=== PATIENT | male | born 1965 | race Caucasian/White ===

== ENCOUNTER 2019-05-03 10:45 | Inpatient (IN) | payer OTHER ==
[2019-05-03] MEDS ORDERED: Enoxaparin(*) 40 MG/0.4 ML SYR SUBCUT SCH (12:00)
[2019-05-03] MEDS: Ondansetron INJ* 2 MG/ML VIAL IV PRN ×3 (13:47→23:05)
[2019-05-03] MEDS: Lisinopril TAB* 10 MG PO SCH (13:52)
[2019-05-03] MEDS: amLODIPine TAB* 5 MG PO SCH (13:52)
[2019-05-03] MEDS: Cyclobenzaprine TAB* 10 MG PO PRN ×2 (14:10→21:20)
[2019-05-03] MEDS: Morphine INJ* 2 MG/ML 1 ML SYRINGE (TWO MG - NEW SYRINGE VERSION) IV PRN ×4 (14:11→21:18)
[2019-05-03] MEDS: NS 0.9% 1000 ML** 1,000 ML IV SCH (14:12)
--- NOTE | 2019-05-03 14:40 | HP ---
CC: Dr. Greyson Pompa; Dr. Giles Velasquez * ADMISSION HISTORY AND PHYSICAL: DATE OF ADMISSION: 05/03/19 REASON FOR ADMISSION: Severe back pain with numbness, headaches, with a history of stage IIIB melanoma. HISTORY OF PRESENT ILLNESS: Mr. Temple is a 54-year-old male with a history of malignant melanoma approximately 8 years ago (for details please see below). He reports being in his usual state of health other than maybe some vague symptoms of not feeling well for the last 6 months with some mild nausea over that period of time. Approximately 8 days ago, he developed some constipation, did not move his bowels for 4 days and then was able to move his bowels with MiraLAX. He had never required any prior bowel medications. Since using the MiraLAX, he again has not had a bowel movement for the last 3 days. 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 Because of this, he did try to increase his activity level recently. He was working out more with machines and exercise. With this, he subsequently developed significant low back pain radiating to the groin, extending into the buttocks, more on the left side than on the right. This pain has become much more severe over the past 3 to 4 days. He was taking ibuprofen 600 to 800 mg 4 times per day without significant relief, was unable to find a comfortable position. Two days ago, he developed inability to urinate and presented to the [facility] yesterday with the above complaints. He reports that 3 to 4 days ago the pain was about 4 or 5 on a scale of 1 to 10 and over the last 48 hours, it escalated to 10/10. He did receive some relief yesterday with the use of IV morphine at [facility]. He was sent home with Flexeril and oxycodone. Reports really no significant benefit from these medications since and also has become more jittery on these medications. He is now noticing numbness in the left and to a less extent right buttock and upper legs, which has been progressive. In addition, he has developed a sensation of lightning bolts in his vision, sensation of pounding in his head along with significant headaches with some radiation of the headaches to the neck. He denies any double or blurred vision with this. In the [facility] yesterday, a CT scan was performed which had subsequently been reviewed here by myself and by Radiology at [facility]. This reveals multiple enlarged lymph nodes in the abdomen and pelvis. In addition, there is a large mass in or adjacent to the right kidney measuring 7.5 cm. The typical fat plane between the kidney and the small bowel is obliterated. In addition, there are multiple enlarged lymph nodes noted both in the abdomen and in the pelvis with the largest being in the left pelvic region. This appears to be adjacent to the femoral vein and may well be compressing that vein. MRI scan without contrast was done of the lumbar spine and by report shows no fracture, subluxation, or bone marrow edema. There was significant L5-S1 central disk protrusion. There was significant neural foraminal narrowing. On review here, there appears to be some nodularity in the epidural space potentially concerning for metastatic disease in the lumbar spine. Laboratory studies at [facility] included a CBC with a white count of 11, 700, H and H 42.1/14.6, platelet count 331,000 with normal differential. Chemistry studies: Sodium 140, potassium 4.4, chloride 104, bicarb 25, BUN 19, creatinine 1.4. Albumin of 4.0. LFTs are normal. Urinalysis without any blood in the urine and no significant abnormalities. PAST MEDICAL HISTORY: Melanoma with lesion discovered in the left thigh, initial biopsy and then wide local excision and lymph node dissection done by Dr. Cynthia Toro at [facility]. His reports one lymph node involved with a small number of cells. Right leg at the same time also had a melanoma, which was not as deep and no lymph node surgery was performed. He was offered interferon, but declined to take it at that time. Reports PET scan was negative at that time. History of hypertension for approximately 2 years, well controlled on medications; increased cholesterol. No diabetes, RI, or CVA. No other hospitalizations. FAMILY HISTORY: Father at the age 46 of a ruptured aortic aneurysm. Mother is alive at 84 with diabetes and COPD. One brother with diabetes. Two other siblings in good health. No family history of any malignancies. 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 Lives with his , Maryjo Temple. Occasional alcohol. He was a smoker of cigarettes for 25 years and cigars up to 6 per day for the past 10 years, quitting 6 months ago. REVIEW OF SYSTEMS: Energy level has been poor over the past week, was good before that. Weight has been stable. No significant shortness of breath, chest pain, or palpitations. Does have some numbness, somewhat chronic in the bilateral upper thighs, although this numbness has been worse over the past week especially in the left leg. Underlying heartburn. Known abdominal wall hernia. Bowels, severe constipation recently as discussed above and no bloody stools. Urinary symptoms recently with difficult urination for the last 24 to 48 hours. Chronic left leg swelling since lymph node surgery in the groin. Increased back pain recently. Some difficulty with sleep over the past week. No underlying depression, anxiety, or emotional issues. No major bruising or bleeding problems. Review of systems otherwise negative except as discussed in the accompanied health history form. PHYSICAL EXAMINATION GENERAL: A 54-year-old male who appears very uncomfortable and unable to find a comfortable position, pacing throughout the exam room during our conversation. VITAL SIGNS: Blood pressure 149/86, pulse 93, afebrile, O2 saturation 96% on room air. Height 6 feet 1 inch, weight 283 pounds, BSA 2.49, and BMI of 37.3. HEENT: PERRL. EOMI. No erythema or exudates. No palpable cervical, supraclavicular, axillary, or inguinal adenopathy. LUNGS: Clear. HEART: Regular rate and rhythm without murmurs, rubs, or gallops. ABDOMEN: Midline abdominal wall hernia, which is easily reducible. BACK: Mild tenderness over the lower lumbar spine, especially about L2-3. EXTREMITIES: 1+ pitting edema on the left, none on the right. NEUROLOGIC: The patient is alert and oriented x3. Motor is 5/5 in all extremities. Decreased sensation in patchy areas in the bilateral upper thighs. He reports at least on the left that this is his usual. Reflexes are symmetric and not brisk. There is no clonus. Romberg is negative. Toes are downgoing on the right and questionably up on the left. IMPRESSION: A 54-year-old male with a history of stage IIIB melanoma by report (we are trying to obtain records from [facility] from 7 to 8 years ago). He reports at that time having had lymph node involvement and being offered but declining interferon therapy. He now has CT scan that is extremely worrisome for metastatic malignancy. Most likely related to his underlying melanoma. This includes multiple areas of increased lymph nodes throughout the abdomen and pelvis as well as a large mass in or adjacent to the right kidney. He presents now with markedly worsening symptoms over the past 1 week's time including back pain, groin and pelvic pain, some numbness radiating around the lower back into the legs. This is not associated with any weakness, although he does report his balance has been off, he has not fallen. In addition, he has neurologic symptoms of headaches and flashing lights in his eyes. The patient's pain is currently not under good control, and he will need to be admitted to the hospital for control of his pain as well as workup in an expeditious fashion to determine if he has central nervous system involvement. PLAN: 1. Morphine 2 mg IV q.2 hours p.r.n. This will be increased if needed. 2. MRI scan of the brain along with a CT of the LS spine. This has already been discussed with both Radiology and Neuroradiology and likely can be accomplished later today. If evidence for involvement in the [employer], Radiation Therapy will need to be involved to further help with planning. 3. Ultrasound-guided biopsy of lymph node in the left pelvis. This would be to determine if this is a melanoma as a cause of his symptoms and with CT and MRI findings. In addition, it will be determined BRAF status. He and his were unsure whether his tumor was BRAF positive or not at the time of the original diagnosis. 4. DVT prophylaxis with Lovenox 40 mg subcutaneously daily. 5. Continuation of routine medications for blood pressure and cholesterol. 6. Bowel medications as he has been constipated and has not had a bowel movement for 3 days. He has responded in the past to MiraLAX and this will be continued. 7. We will need to watch carefully to make sure he does not develop any further urinary retention. We will obtain bladder scan again this evening if he has not voided in the interim. He reports while being in the emergency room at [place] yesterday that he did urinate on his own 600 mL. 8. Full code status. [id number]/[facility] #: [id number] [facility]
[2019-05-03] MEDS ORDERED: Gadoteridol* (CONTRAST) 279.3 MG/ML 10 ML IV ONE (16:50)
[2019-05-03] MEDS: Polyethylene Glycol 3350* 17 GM PACKET PO SCH (19:12)
[2019-05-03] MEDS: Zolpidem TAB* 5 MG PO SCH (20:45)
[2019-05-03] MEDS: Atorvastatin* 40 MG TAB PO SCH (20:45)
[2019-05-03] MEDS ORDERED: Morphine INJ* 2 MG/ML 1 ML SYRINGE (TWO MG - NEW SYRINGE VERSION) IV ONE (23:00)
[2019-05-03] MEDS ORDERED: Dexamethasone IV* 4 MG/ML 1 ML (4 MG) IV SLOW PU ONE (23:00)
[2019-05-04] MEDS: Morphine INJ* 4 MG/ML 1 ML SYRINGE (NEW SYRINGE VERSION) IV PRN ×8 (01:13→21:35)
[2019-05-04] MEDS: Ondansetron INJ* 2 MG/ML VIAL IV PRN ×2 (04:07→19:12)
[2019-05-04 06:35] LABS: ABS Lymphocytes 0.9 10^3/ul (1.0-4.8); ABS Monocytes 0.1 10^3/ul (0-0.8); ABS Neutrophils 7.1 10^3/ul (1.5-7.7); Hematocrit 47 % (42-52); Hemoglobin 16.4 g/dL (14.0-18.0); Lymphocyte % 11.2 %; Mean Corpuscular HGB Conc 35 g/dL (31-36); Mean Corpuscular Hemoglobin 35 pg (27-31); Mean Corpuscular Volume 99 fL (80-94); Platelet Count 333 10^3/uL (150-450); Red Blood Count 4.71 10^6 /uL (4.18-5.48); Red Cell Distribution Width 13 % (10-15); White Blood Count 8.1 10^3/uL (3.5-10.8)
[2019-05-04 06:36] LABS: Albumin 4.9 g/dL (3.2-5.2); Albumin/Globulin Ratio 1.4 (1-3); BUN/Creatinine Ratio 16.4 (8-20); Calcium 9.8 mg/dL (8.6-10.3); EGFR African American 74.3 (>60); EGFR Non-African American 61.4 (>60); Globulin 3.5 g/dL (2-4); Potassium 4.4 mmol/L (3.5-5.0); Total Bilirubin 0.6 mg/dL (0.2-1.0); Total Protein 8.4 g/dL (6.4-8.9)
[2019-05-04] MEDS: amLODIPine TAB* 5 MG PO SCH (08:29)
[2019-05-04] MEDS: Polyethylene Glycol 3350* 17 GM PACKET PO SCH (08:29)
[2019-05-04] MEDS: Lisinopril TAB* 10 MG PO SCH (08:29)
[2019-05-04] MEDS: CHOLECALCIFEROL PO SCH (08:39)
[2019-05-04] MEDS: TURMERIC PO SCH (08:39)
[2019-05-04] MEDS: VIT K2 PO SCH (08:39)
--- NOTE | 2019-05-04 09:25 | PN ---
Progress Note - Progress Note Date of Service: 05/04/19 SOAP: Subjective: Notes his pain is under better control Has persistent left sided saddle numbness involving left buttocks. Notes that he is urinating ok Intermittent retrobulbar discomfort MRI PET HOUSE SITTER with both cerebellar and Cerebral lesions (Hemorrhagic component) MRI CTL spine with significant DJD and foraminal stenosis also abnormal enhancement conus concerning for leptomeningeal disease. Objective: Alert and conversant neck supple PERRLA Lungs CTA Cardiac RRR Abdomen soft and nontender Neuro with area of parasthesia and anesthesia left perineal buttock region extrem w/o CCE Prior surgical scar LLE and left inguinal Assessment: Stage IIIB Melanoma left lower extremity diagnosed approximately 8 years ago post resection followed by left inguinal ciera dissection. By report of patient 1 node was involved. Declined adjuvant Interferon at that time. 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 Utilize SCDS Radiation Oncology Opinion Analgesia currently adequate Monitor urine output given prior retention Consideration for PET HOUSE SITTER sampling to exclude carcinomatous Meningitis EVERETT Díaz MD
[2019-05-04] MEDS: NS 0.9% 1000 ML** 1,000 ML IV SCH (10:34)
[2019-05-04] MEDS: Dexamethasone IV* 4 MG/ML 1 ML (4 MG) IV SLOW PU SCH ×2 (14:01→21:35)
[2019-05-04] MEDS ORDERED: fentaNYL* 50 MCG/ML 2 ML VIAL (100 MCG VIAL) ONE (14:50)
--- NOTE | 2019-05-04 19:55 | CONS ---
RADIATION ONCOLOGY INPATIENT CONSULTATION NOTE: DATE OF CONSULT: 05/04/19 REFERRING PHYSICIAN: Dr. Giles Velasquez. DIAGNOSIS: Suspected brain and epidural metastases with history of melanoma. HISTORY OF PRESENT ILLNESS: Mr. Temple is a 54-year-old gentleman with history of malignant melanoma with high risk cutaneous disease, treated with surgery approximately 8 years ago. Approximately 1 week ago, he developed difficulties with bowel habits and difficulties with urination as well as pain in the sacrum and perineum. He presented to the emergency department and his evaluation has included CT of the abdomen and pelvis, which identifies retroperitoneal and left external iliac masses. MRI of the brain on 05/03/19 identifies multiple enhancing lesions in the bilateral hemispheres, the largest in the right frontal lobe measuring approximately 2.5 cm with mass effect in the overall appearance of multiple brain metastases. MRI of the lumbar spine also on 05/03/19 identifies extensive leptomeningeal enhancement in the lumbar spinal canal, cauda equina, and nerve roots consistent with leptomeningeal studding of cancer. He has been placed on dexamethasone. He is planned for biopsy and lumbar puncture and Radiation Oncology consultation is requested. PAST MEDICAL HISTORY: Melanoma, as in the history of present illness. History of hypertension. FAMILY HISTORY: No history of malignancy reported in his first degree relatives. SOCIAL HISTORY: He has been a smoker, but quit approximately 6 months ago. MEDICATIONS: Reviewed on the inpatient record including dexamethasone. REVIEW OF SYSTEMS: As in history of present illness, otherwise complete review of systems is asked to the patient, without additional significant findings. PHYSICAL EXAM: Vital Signs: Temperature 97.6, pulse rate 77, respiratory rate 20, oxygen saturation 93% on room air, blood pressure 116/80. In general, he is awake, alert and oriented, in no acute distress. Normocephalic, atraumatic. Sclerae are anicteric. Neck is supple. Full range of motion. Midline trachea. No mass palpable in the neck or thyroid. Lungs: Symmetric air entry bilaterally. Cardiovascular: S1, S2. Regular. Abdomen: Soft, nontender. No mass. No organomegaly. Extremities: No cyanosis or edema. Neurologic: Cranial nerves II through XII are intact. Strength is symmetric in proximal and distal muscle groups in the upper and lower extremities. Gait and Balance: He is ambulatory without assistance, somewhat wide based and unsteady. Negative Romberg, no drift or dysmetria. DIAGNOSTIC STUDIES/LAB DATA: Pathology and Radiology: Reviewed, as in the history of present illness. 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 I did review his history as well as the radiographic findings and discussed at some length with the patient and his family as they are already familiar. I reviewed consideration for management for brain metastases and cauda equina syndrome, with the majority of our conversation focused on the use of palliative radiation therapy to the lumbosacral spine and whole brain radiation therapy versus stereotactic radiosurgery as consideration for management of brain metastases. There is concern for leptomeningeal disease, in which case whole whole brain radiation therapy would be typically be recommended, although gamma knife radiosurgery followed by immunotherapy could be an attractive option in his case. With regard to radiation treatment options, I reviewed the logistics and rationale, risks, benefits, and alternatives as well as the acute and terminal clerk frequent and uncommon toxicities and I did answer the patient and his family's questions to the best of my ability. He is inclined to move forward with treatment as recommended as quickly as possible, and I will make arrangements tentatively to move forward with treatment planning, have his case reviewed through the Central Nervous System Malignancy Team at [facility], and await results from planned biopsy and possible lumbar puncture. I did ask him to contact me with any questions or concerns in the interval. Thank you for giving me the opportunity to participate in the care of this very pleasant gentleman. [id number]/[facility] #: [id number] CHELSEA
[2019-05-04] MEDS: Atorvastatin* 40 MG TAB PO SCH (21:34)
[2019-05-04] MEDS: Zolpidem TAB* 5 MG PO SCH (21:34)
[2019-05-05] MEDS: Ondansetron INJ* 2 MG/ML VIAL IV PRN (02:18)
[2019-05-05] MEDS: Morphine INJ* 4 MG/ML 1 ML SYRINGE (NEW SYRINGE VERSION) IV PRN ×6 (02:18→21:43)
[2019-05-05] MEDS: NS 0.9% 1000 ML** 1,000 ML IV SCH ×2 (03:23→21:39)
[2019-05-05] MEDS: Dexamethasone IV* 4 MG/ML 1 ML (4 MG) IV SLOW PU SCH ×3 (06:00→21:44)
--- NOTE | 2019-05-05 08:36 | PN ---
Progress Note - Progress Note Date of Service: 05/05/19 SOAP: Subjective: Notes left buttock tingling may be better also improved headache Now post US guided biopsy of intra abdominal adenopathy For fluoro guided LP today Has seen Dr Umaña who has reviewed palliative XRT to L Spine and likely gamma knife to dominant right frontal lesion Objective: Alert and conversant, seated in chair Neuro with reported parasthesias leck buttocks region Extrem w/o cce Cardiac RRR Abdomen soft Vital Signs - 8 hr 05/05/19 05/05/19 05/05/19 02:18 02:30 03:19 Temperature 98.1 F Pulse Rate 69 Respiratory 16 18 18 Rate Blood Pressure 130/72 (mmHg) O2 Sat by Pulse 96 Oximetry 05/05/19 05/05/19 05/05/19 06:00 07:17 07:20 Temperature 97.8 F Pulse Rate 65 Respiratory 16 20 18 Rate Blood Pressure 132/82 (mmHg) O2 Sat by Pulse 95 Oximetry Intake and Output Last 24 Hours 05/03/19 05/04/19 05/05/19 05/06/19 06:59 06:59 06:59 06:59 Intake Total 870 9678 Balance 870 9678 Weight 280 lb Intake: IV Fluids 510 8258 NS (0.9%) 510 8258 Oral 360 1420 Other: Estimated Void Medium Date of Last Bowel 133653 Movement # Bowel Movements 0 0 # Voids 0 1 Amlodipine Besylate (Norvasc Tab*) 10 mg PO DAILY [facility] Last Admin: 05/04/19 08:29 Dose: 10 mg Atorvastatin Calcium (Lipitor*) 40 mg PO BEDTIME [facility] Last Admin: 05/04/19 21:34 Dose: 40 mg Cyclobenzaprine HCl (Flexeril Tab*) 10 mg PO TID PRN PRN Reason: SPASMS Last Admin: 05/03/19 21:20 Dose: 10 mg Dexamethasone Sodium Phosphate (Decadron Iv*) 6 mg IV SLOW PU Q8HR [facility] Last Admin: 05/05/19 06:00 Dose: 6 mg Sodium Chloride (Ns 0.9% 1000 Ml) 1,000 mls @ 75 mls/hr IV PER RATE [facility] Last Admin: 05/05/19 03:23 Dose: 75 mls/hr Lisinopril (Prinivil Tab*) 20 mg PO DAILY [facility] Last Admin: 05/04/19 08:29 Dose: 20 mg Morphine Sulfate (Morphine Inj (Syringe)*) 3 mg IV Q2H PRN PRN Reason: Pain Last Admin: 05/05/19 06:00 Dose: 3 mg Pto:Cholecalciferol (Vitd3)/Vit K2 Capsules 1 each PO DAILY [facility] Last Admin: 05/04/19 08:39 Dose: Not Given Pto:Turmeric Complex (900 Mg Cap]) 2 cap PO DAILY [facility] Last Admin: 05/04/19 08:39 Dose: Not Given Ondansetron HCl (Zofran Inj*) 4 mg IV Q4H PRN PRN Reason: NAUSEA/VOMITING Last Admin: 05/05/19 02:18 Dose: 4 mg Polyethylene Glycol/Electrolytes (Miralax (17 Gm Dose Perfecto)) 17 gm PO DAILY [facility] Last Admin: 05/04/19 08:29 Dose: 17 gm Zolpidem Tartrate (Ambien Tab*) 5 mg PO BEDTIME [facility] Last Admin: 05/04/19 21:34 Dose: 5 mg Assessment: Clinical presentation c/w metastatic melanoma to TALENT ADVISOR with lumbar leptomeningeal disease and 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
[2019-05-05] MEDS: Lisinopril TAB* 10 MG PO SCH (08:38)
[2019-05-05] MEDS: CHOLECALCIFEROL PO SCH (08:39)
[2019-05-05] MEDS: VIT K2 PO SCH (08:39)
[2019-05-05] MEDS: Polyethylene Glycol 3350* 17 GM PACKET PO SCH (08:39)
[2019-05-05] MEDS: amLODIPine TAB* 5 MG PO SCH (08:39)
[2019-05-05] MEDS: TURMERIC PO SCH (08:40)
[2019-05-05] MEDS: Atorvastatin* 40 MG TAB PO SCH (21:34)
[2019-05-05] MEDS: Zolpidem TAB* 5 MG PO SCH (21:34)
[2019-05-06] MEDS: Morphine INJ* 4 MG/ML 1 ML SYRINGE (NEW SYRINGE VERSION) IV PRN ×4 (03:02→21:39)
[2019-05-06] MEDS: Dexamethasone IV* 4 MG/ML 1 ML (4 MG) IV SLOW PU SCH ×3 (05:33→21:38)
[2019-05-06] MEDS: oxyCODONE TAB* 5 MG TAB PO PRN ×3 (05:35→13:18)
--- NOTE | 2019-05-06 08:14 | PN ---
Progress Note - Progress Note Date of Service: 05/06/19 SOAP: Subjective: pain still under relatively poor control. reports needing to take something every 2-3 hours. not on a long acting yet. no BM since Wednesday of last week! Peeing though. still with buttock saddle numbness. unfortunately anesthesia unable to do LP for concerns of tumor. Objective: Vital Signs Temp Pulse Resp BP Pulse Ox 97.4 F 70 18 149/81 97 05/06/19 03:15 05/06/19 03:15 05/06/19 05:35 05/06/19 03:15 05/06/19 03:15 sitting up in nad perr eomi op moist cta bl s1 s2 nl obese soft nt +bs no le edema multiple scar deformities both legs wide based, slightly unsteady gait A+O x 3 Amlodipine Besylate (Norvasc Tab*) 10 mg PO DAILY [facility] Last Admin: 05/05/19 08:39 Dose: 10 mg Atorvastatin Calcium (Lipitor*) 40 mg PO BEDTIME [facility] Last Admin: 05/05/19 21:34 Dose: 40 mg Cyclobenzaprine HCl (Flexeril Tab*) 10 mg PO TID PRN PRN Reason: SPASMS Last Admin: 05/03/19 21:20 Dose: 10 mg Dexamethasone Sodium Phosphate (Decadron Iv*) 6 mg IV SLOW PU Q8HR [facility] Last Admin: 05/06/19 05:33 Dose: 6 mg Sodium Chloride (Ns 0.9% 1000 Ml) 1,000 mls @ 75 mls/hr IV PER RATE [facility] Last Admin: 05/05/19 21:39 Dose: 75 mls/hr Lactulose (Lactulose*) 30 ml PO TID [facility] Lisinopril (Prinivil Tab*) 20 mg PO DAILY [facility] Last Admin: 05/05/19 08:38 Dose: 20 mg Morphine Sulfate (Morphine Inj (Syringe)*) 3 mg IV Q2H PRN PRN Reason: PAIN - SEVERE Last Admin: 05/06/19 05:34 Dose: 3 mg Morphine Sulfate (Ms Contin(*)) 15 mg PO Q12H [facility] Pto:Cholecalciferol (Vitd3)/Vit K2 Capsules 1 each PO DAILY [facility] Last Admin: 05/05/19 08:39 Dose: Not Given Pto:Turmeric Complex (900 Mg Cap]) 2 cap PO DAILY [facility] Last Admin: 05/05/19 08:40 Dose: Not Given Ondansetron HCl (Zofran Inj*) 4 mg IV Q4H PRN PRN Reason: NAUSEA/VOMITING Last Admin: 05/05/19 02:18 Dose: 4 mg Oxycodone HCl (Roxycodone Tab*) 5 mg PO Q4H PRN PRN Reason: PAIN - MODERATE Last Admin: 05/06/19 05:35 Dose: 5 mg Polyethylene Glycol/Electrolytes (Miralax (17 Gm Dose Perfecto)) 17 gm PO DAILY [facility] Last Admin: 05/05/19 08:39 Dose: 17 gm Zolpidem Tartrate (Ambien Tab*) 5 mg PO BEDTIME [facility] Last Admin: 05/05/19 21:34 Dose: 5 mg Assessment: 54 yo M w PMH of stage III melanoma now with diffusely recurrent metastatic disease, [employer]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 Plan: Pain control: -add long acting MS Contin 15 mg po bid -cont short acting Constipation: likely combination of cauda equina syndrome and narcotics -add lactulose until BM ?leptomeningeal seeding: anesthesia unable to do unguided LP. Will d/w Dr. Brian and Leeroy on Wednesday if fluoro guided LP warranted next week holding A/C w hemorrhagic mets and ? LP PT consult anticipate DC home once pain control optimized
[2019-05-06 08:16] LABS: ABS Monocytes 0.7 10^3/ul (0-0.8); ABS Neutrophils 13.5 10^3/ul (1.5-7.7); Hematocrit 47 % (42-52); Lymphocyte % 6.7 %; Mean Corpuscular HGB Conc 34 g/dL (31-36); Mean Corpuscular Hemoglobin 35 pg (27-31); Mean Corpuscular Volume 101 fL (80-94); Mean Platelet Volume 6.9 fL (7.4-10.4); Platelet Count 380 10^3/uL (150-450); Red Blood Count 4.65 10^6 /uL (4.18-5.48); Red Cell Distribution Width 13 % (10-15); White Blood Count 15.2 10^3/uL (3.5-10.8)
[2019-05-06 08:27] LABS: Albumin 4.9 g/dL (3.2-5.2); Calcium 9.6 mg/dL (8.6-10.3); Potassium 4.2 mmol/L (3.5-5.0); Total Bilirubin 0.5 mg/dL (0.2-1.0)
[2019-05-06 08:33] LABS: Albumin/Globulin Ratio 1.4 (1-3); BUN/Creatinine Ratio 23.7 (8-20); EGFR African American 68.5 (>60); EGFR Non-African American 56.6 (>60); Globulin 3.5 g/dL (2-4); Total Protein 8.4 g/dL (6.4-8.9)
[2019-05-06] MEDS: amLODIPine TAB* 5 MG PO SCH (09:18)
[2019-05-06] MEDS: Morphine TAB Extended Release (*) 15 MG TAB.ER PO SCH ×2 (09:19→21:39)
[2019-05-06] MEDS: Lisinopril TAB* 10 MG PO SCH (09:19)
[2019-05-06] MEDS: VIT K2 PO SCH (09:20)
[2019-05-06] MEDS: CHOLECALCIFEROL PO SCH (09:20)
[2019-05-06] MEDS: Polyethylene Glycol 3350* 17 GM PACKET PO SCH (09:20)
[2019-05-06] MEDS: TURMERIC PO SCH (09:21)
[2019-05-06] MEDS: NS 0.9% 1000 ML** 1,000 ML IV SCH (13:16)
[2019-05-06] MEDS: Cyclobenzaprine TAB* 10 MG PO PRN (13:17)
[2019-05-06] MEDS: Atorvastatin* 40 MG TAB PO SCH (21:39)
[2019-05-06] MEDS: Zolpidem TAB* 5 MG PO SCH (21:42)
[2019-05-07] MEDS: oxyCODONE TAB* 5 MG TAB PO PRN ×5 (02:47→21:06)
[2019-05-07] MEDS: Cyclobenzaprine TAB* 10 MG PO PRN (04:30)
[2019-05-07] MEDS: Dexamethasone IV* 4 MG/ML 1 ML (4 MG) IV SLOW PU SCH ×3 (07:00→21:07)
[2019-05-07] MEDS: Lisinopril TAB* 10 MG PO SCH (09:00)
[2019-05-07] MEDS: amLODIPine TAB* 5 MG PO SCH (09:00)
[2019-05-07] MEDS: Morphine TAB Extended Release (*) 15 MG TAB.ER PO SCH ×2 (09:01→21:05)
[2019-05-07] MEDS: Polyethylene Glycol 3350* 17 GM PACKET PO SCH (09:10)
[2019-05-07] MEDS: TURMERIC PO SCH (10:18)
[2019-05-07] MEDS: CHOLECALCIFEROL PO SCH (10:19)
[2019-05-07] MEDS: VIT K2 PO SCH (10:19)
--- NOTE | 2019-05-07 11:32 | PN ---
Subjective Date of Service: 05/07/19 Interval History: States he has been having a headache with "lightning flashes behind the eyes", this has been happening per his report. Pain at times to lower back but also c/ o numbness across lower back with slightly decreased sensation to buttocks, states that he thinks his genitals are becoming slightly numb as well. Has to push and give more effort than usual with urination. Did have BMs yesterday. States that he will have an urge to urinate/BM at times and nothing will come out. Believes his pain control is okay at the moment however he "had to play catch-up last night" per his report, and did receive an IV medication this morning. Thinks that since receiving the dex he may have a slight improvement in urinary symptoms, but is not sure that he feels any other symptomatic improvement. States usual swelling to LLE, this is normal for him since his prior surgery to the L thigh. Denies any CP, SOB, abdominal discomfort, new numbness/tingling/pain. Seen again later in the day, spoke about pain control and potential for changing medication dosages for best control as needed. Pt stated that he was doing okay at that time and he wanted "to tough it out" with the current medication and see if he can maintain adequate control with more consistent use rather than increasing dosages. Objective Active Medications: Amlodipine Besylate (Norvasc Tab*) 10 mg PO DAILY [facility] Last Admin: 05/07/19 09:00 Dose: 10 mg Atorvastatin Calcium (Lipitor*) 40 mg PO BEDTIME [facility] Last Admin: 05/06/19 21:39 Dose: 40 mg Cyclobenzaprine HCl (Flexeril Tab*) 10 mg PO TID PRN PRN Reason: SPASMS Last Admin: 05/07/19 04:30 Dose: 10 mg Dexamethasone Sodium Phosphate (Decadron Iv*) 6 mg IV SLOW PU Q8HR [facility] Last Admin: 05/07/19 07:00 Dose: 6 mg Sodium Chloride (Ns 0.9% 1000 Ml) 1,000 mls @ 75 mls/hr IV PER RATE [facility] Last Admin: 05/06/19 13:16 Dose: 75 mls/hr Lisinopril (Prinivil Tab*) 20 mg PO DAILY [facility] Last Admin: 05/07/19 09:00 Dose: 20 mg Morphine Sulfate (Morphine Inj (Syringe)*) 3 mg IV Q2H PRN PRN Reason: PAIN - SEVERE Last Admin: 05/06/19 21:39 Dose: 3 mg Morphine Sulfate (Ms Contin(*)) 15 mg PO Q12H [facility] Last Admin: 05/07/19 09:01 Dose: 15 mg Pto:Cholecalciferol (Vitd3)/Vit K2 Capsules 1 each PO DAILY [facility] Last Admin: 05/07/19 10:19 Dose: 1 each Pto:Turmeric Complex (900 Mg Cap]) 2 cap PO DAILY [facility] Last Admin: 05/07/19 10:18 Dose: 2 cap Ondansetron HCl (Zofran Inj*) 4 mg IV Q4H PRN PRN Reason: NAUSEA/VOMITING Last Admin: 05/05/19 02:18 Dose: 4 mg Oxycodone HCl (Roxycodone Tab*) 5 mg PO Q4H PRN PRN Reason: PAIN - MODERATE Last Admin: 05/07/19 09:00 Dose: 5 mg Polyethylene Glycol/Electrolytes (Miralax (17 Gm Dose Perfecto)) 17 gm PO DAILY [facility] Last Admin: 05/07/19 09:10 Dose: 17 gm Zolpidem Tartrate (Ambien Tab*) 5 mg PO BEDTIME [facility] Last Admin: 05/06/19 21:42 Dose: Not Given Vital Signs - 8 hr 05/07/19 05/07/19 05/07/19 03:32 04:30 04:45 Temperature 97.4 F Pulse Rate 58 Respiratory 16 18 19 Rate Blood Pressure 139/75 (mmHg) O2 Sat by Pulse 98 Oximetry 05/07/19 05/07/19 05/07/19 06:30 09:00 09:01 Temperature Pulse Rate Respiratory 18 18 18 Rate Blood Pressure (mmHg) O2 Sat by Pulse Oximetry 05/07/19 05/07/19 05/07/19 09:05 09:19 09:20 Temperature 97.9 F Pulse Rate 90 Respiratory 18 18 18 Rate Blood Pressure 135/72 (mmHg) O2 Sat by Pulse 96 Oximetry Oxygen Devices in Use Now: None Appearance: Sitting up in chair, good spirits, in NAD Eyes: No Scleral Icterus, - - PERRL, EOMI Ears/Nose/Mouth/Throat: Mucous Membranes Moist Respiratory: Symmetrical Chest Expansion and Respiratory Effort, - - Expiratory rhonchi RUL, all other lobes clear Cardiovascular: RRR Extremities: - - Trace non-pitting edema LLE, none to RLE Neurological: Alert and Oriented x 3 Nutrition: Taking PO's Result Diagrams: 05/06/19 08:00 05/06/19 08:00 Assess/Plan/Problems-Billing Assessment: is a 54yo male with PMHx significant for melanoma III, HTN, high cholesterol, and a former smoker who quit 6 months ago. Presented a few days ago to the [facility] with c/o inability to urinate. He then, on 05/03, presented to our ED with c/o severe back pain with numbness and headaches. Imaging performed in ED and was admitted to medical unit by oncology services. - Patient Problems (1) Hx of malignant melanoma Current Visit: Yes Status: Acute Code(s): Z85.820 - PERSONAL HISTORY OF MALIGNANT MELANOMA OF SKIN SNOMED Code(s): 605290332 Comment: Hx malignant melanoma, imaging performed after presentation to ED that is consistent with metastatic disease throughout [employer] TENDER. Cauda equina syndrome. Oncology admitted to medical unit. Has had BMs after lactulose, still having difficulty with urination but thinks slight improvement since starting dex. - Potential plan for flouro guided LP per notes which will be coordinated by onc - Continue to monitor - Continue dexamethasone - Bladder scan PRN per nursing if pt unable to empty bladder or has increase in difficulty - Pain control - continue MS contin with other PRN medications, optimize with adequate utilization of current regimen, may need doseage adjustment in preparation for discharge - Supportive measures (2) Leukocytosis Current Visit: Yes Status: Acute Code(s): D72.829 - ELEVATED WHITE BLOOD CELL COUNT, UNSPECIFIED SNOMED Code(s): 377944847 Comment: WBC 15.1, neutrophils 13.9, Very likely in relation to initiation of steroid therapy with dexamethasone. No other s/s of infectious process - no need to trend labs as of yet - continue to monitor (3) HTN (hypertension) Current Visit: Yes Status: Acute Code(s): I10 - ESSENTIAL (PRIMARY) HYPERTENSION SNOMED Code(s): 87126061 Comment: Stable - Continue amlodipine and lisinopril (4) High cholesterol Current Visit: Yes Status: Acute Code(s): E78.00 - PURE HYPERCHOLESTEROLEMIA , UNSPECIFIED SNOMED Code(s): 33457267 Comment: Chronic condition - Continue statin therapy (5) DVT prophylaxis Current Visit: Yes Status: Acute Code(s): Z29.9 - ENCOUNTER FOR PROPHYLACTIC MEASURES, UNSPECIFIED SNOMED Code(s): 392557790 Comment: Per onc notes no anticoags in r/t hemmorhagic mets - Encourage ambulation - SCDs Status and Disposition: Status: Stable Disposition: 4N Attending: Gregoria Ro
[2019-05-07] MEDS: Morphine INJ* 4 MG/ML 1 ML SYRINGE (NEW SYRINGE VERSION) IV PRN (16:29)
[2019-05-07] MEDS: NS 0.9% 1000 ML** 1,000 ML IV SCH (17:01)
[2019-05-07] MEDS: Atorvastatin* 40 MG TAB PO SCH (21:05)
[2019-05-08] MEDS: oxyCODONE TAB* 5 MG TAB PO PRN ×2 (01:23→09:14)
[2019-05-08] MEDS: Zolpidem TAB* 5 MG PO SCH (01:23)
[2019-05-08 06:20] LABS: Potassium 4.4 mmol/L (3.5-5.0)
[2019-05-08 06:26] LABS: BUN/Creatinine Ratio 26.2 (8-20); EGFR African American 71.6 (>60); EGFR Non-African American 59.2 (>60)
[2019-05-08] MEDS: Dexamethasone IV* 4 MG/ML 1 ML (4 MG) IV SLOW PU SCH (06:27)
[2019-05-08] MEDS: NS 0.9% 1000 ML** 1,000 ML IV SCH (06:29)
[2019-05-08] MEDS: amLODIPine TAB* 5 MG PO SCH (09:13)
[2019-05-08] MEDS: Morphine TAB Extended Release (*) 15 MG TAB.ER PO SCH (09:14)
[2019-05-08] MEDS: Lisinopril TAB* 10 MG PO SCH (09:14)
[2019-05-08] MEDS: CHOLECALCIFEROL PO SCH (10:05)
[2019-05-08] MEDS: VIT K2 PO SCH (10:05)
[2019-05-08] MEDS: TURMERIC PO SCH (10:05)
[2019-05-08] MEDS: Polyethylene Glycol 3350* 17 GM PACKET PO SCH (10:05)
--- NOTE | 2019-05-08 11:17 | DS ---
- Discharge Summary Admission Date: 05/03/19 Discharge Date: 05/08/19 Discharge Diagnosis: 1. Metastatic Melanoma: biopsy confirmed, pending BRAF mutation 2. Cauda Equina Syndrome: plan to initiate RT today. on steroids 3. BATTERY PLATE REMOVER mets: referral to [facility] for gamma knife, cont. steroids 4. HTN: cont. home meds 5. Pain: initiated narcotics with admission and will cont. at home Discharge Medications: Medication Instructions Recorded Confirmed Type Amlodipine Besylate [Norvasc] 10 mg PO DAILY 05/03/19 05/03/19 History Cholecalciferol (Vitd3)/Vit K2 1 each PO DAILY 05/03/19 05/03/19 History [Dosoquin Tablet] Cyclobenzaprine TAB* [Flexeril 10 10 mg PO TID PRN 05/03/19 05/03/19 History MG TAB*] Rosuvastatin Calcium 20 mg PO BEDTIME 05/03/19 05/03/19 History Turmeric/Turmeric Ext/Pepr Ext 2 cap PO DAILY 05/03/19 05/03/19 History [Turmeric Complex 500 mg Cap] lisinopriL [Prinivil TAB 20 mg] 20 mg PO DAILY 05/03/19 05/03/19 History Dexamethasone TAB* [Decadron TAB*] 6 mg PO TID WITH MEALS #60 tab 05/08/19 Rx LORazepam TAB(*) [Ativan 0.5 MG 0.5 mg PO Q6H PRN #20 tab MDD 2 mg 05/08/19 Rx TAB (*)] Lactulose* 30 ml PO TID PRN #1 bottle 05/08/19 Rx Morphine TAB Extended Rel(*) [Ms 15 mg PO Q8HR #90 tab.er MDD 45 mg 05/08/19 Rx Contin(*)] Polyethylene Glycol 3350* [Miralax 17 gm PO DAILY packet 05/08/19 Rx (17 GM DOSE MAXIMILIANO)] Zolpidem TAB* [Ambien*] 5 mg PO BEDTIME #30 tab MDD 5 mg 05/08/19 Rx oxyCODONE TAB* [Roxycodone TAB 5 5 mg PO Q4H PRN #60 tab MDD 6 tabs 05/08/19 Rx mg*] Disposition: Home Condition: Stable Diet: as tolerated Activity: as tolerated, fall precautions, recommend PT Hospital Course: Please see admission note for full H&P, however, briefly, Mr. Temple was referred to our office with concern for malignancy due to presentation @ the [facility] ER with complaint of inability to urinate. A CT of the abd. revealed extensive lymph adenopathy, a mass adjacent to the right kidney, and concern for leptomenigeal enhancement. He was admitted from our office on for further work-up with MRI of the brain and spine, as well as biopsy of the abd. lymph node. IV steroids were initiated as well. Dr. Umaña of [facility] saw the patient in consult on 05/04/19 and will start palliative RT to the spine today, 05/08. He has been referred to [place] for gamma knife due to several metastatic BATTERY PLATE REMOVER lesions. Biopsy completed on 05/04/19 confirmed metastatic melanoma with BRAF mutation pending. An LP was not performed due to concern for location of tumors, therefore we will consider an outpatient Fluoroscopy guided LP, however as this will not change his plan of care there is no urgency. Since admission Mr. Temple has had improvement in his pain, though continues to have significant spikes therefore he will be discharged with q8hr long acting morphine rather than q12h. Additionally he has been very anxious and will be discharged with PRN ativan. He remains mildly constipated but with improvement since starting laxatives. He has hesitancy with urination, but has been able to empty his bladder. He had a PT evlauation and will be referred for home PT on discharge. He is in stable condition and will return to his home after starting RT today. He will follow-up with Dr. Velasquez on 05/16/19 to review path and further recommendations for systemic therapy.
[2019-05-08 12:18] VITALS: BP 161/84
== END 2019-05-08 14:30 | disposition home or self-care (01) | DRG 841 ==
LOC: MED 12:31
PROVIDERS: ADMIT Internal Medicine Hematology & Oncology; ATTEND Internal Medicine Hematology & Oncology
PROC: 07DC3ZX Extraction of Pelvis Lymphatic, Percutaneous Approach, Diagnostic (ICD-10-PCS; principal; 2019-05-04)
DX: C77.5 Secondary and unspecified malignant neoplasm of intrapelvic lymph nodes (principal); G83.4 Cauda equina syndrome; C77.2 Secondary and unspecified malignant neoplasm of intra-abdominal lymph nodes; C44.799 Other specified malignant neoplasm of skin of left lower limb, including hip; K59.00 Constipation, unspecified; I10 Essential (primary) hypertension; E78.00 Pure hypercholesterolemia, unspecified; Z87.891 Personal history of nicotine dependence; D72.829 Elevated white blood cell count, unspecified
CPT/HCPCS: 36415; 49180; 70553; 72156; 72157; 72158; 76942; 77014; 80048; 80053; 85025; 88172; 88173; 88305; 88341; 88342; 99233; 99239; A9270-GY; A9579; J1100; J1650; J2270; J2405; J3010

== ENCOUNTER 2019-05-15 09:52 | Inpatient (IN) | payer OTHER ==
[2019-05-15] MEDS ORDERED: Ondansetron INJ* 2 MG/ML VIAL ONE ×2 (10:24→12:22)
[2019-05-15 10:27] LABS: ABS Lymphocytes 0.3 10^3/ul (1.0-4.8); ABS Monocytes 0.9 10^3/ul (0-0.8); ABS Neutrophils 14.6 10^3/ul (1.5-7.7); Hematocrit 49 % (42-52); Hemoglobin 16.3 g/dL (14.0-18.0); Lymphocyte % 1.6 %; Mean Corpuscular HGB Conc 34 g/dL (31-36); Mean Corpuscular Hemoglobin 34 pg (27-31); Mean Corpuscular Volume 100 fL (80-94); Mean Platelet Volume 7.2 fL (7.4-10.4); Platelet Count 251 10^3/uL (150-450); Red Blood Count 4.83 10^6 /uL (4.18-5.48); Red Cell Distribution Width 14 % (10-15); White Blood Count 15.8 10^3/uL (3.5-10.8)
[2019-05-15 10:46] LABS: ALT 34 U/L (7-52); Albumin 4.3 g/dL (3.2-5.2); Albumin/Globulin Ratio 1.7 (1-3); Alkaline Phosphatase 56 U/L (34-104); BUN/Creatinine Ratio 33.9 (8-20); Blood Urea Nitrogen 83 mg/dL (6-24); CO2 Carbon Dioxide 17 mmol/L (22-32); Calcium 9.4 mg/dL (8.6-10.3); Chloride 102 mmol/L (101-111); EGFR African American 33.3 (>60); EGFR Non-African American 27.5 (>60); Globulin 2.6 g/dL (2-4); Glucose 179 mg/dL (70-100); Sodium 132 mmol/L (135-145); Total Protein 6.9 g/dL (6.4-8.9)
[2019-05-15 11:10] LABS: Anion Gap 13 mmol/L (2-11)
[2019-05-15] MEDS ORDERED: Acetaminophen TAB* 325 MG PO PRN (12:19)
[2019-05-15] MEDS ORDERED: oxyCODONE/Acetamin 5/325 MG* TAB PO PRN (13:15)
[2019-05-15] MEDS ORDERED: Magnesium Hydroxide LIQ* 30 ML UDC PO ONE (13:24)
--- NOTE | 2019-05-15 13:27 | PN ---
Progress Note - Progress Note Date of Service: 05/15/19 SOAP: Addendum to H&P: Chemistry panel resulted showing BANG, with near doubling of Cr. Held planned Lasix for LE edema. Ordered renal/bladder US to eval for obstruction/hydro. Started NS at 75 ml/h. Start oral bicarb. Monitor I&Os closely.
[2019-05-15 13:28] LABS: Potassium Redraw 5.7 mmol/L (3.5-5.0)
[2019-05-15] MEDS ORDERED: NS 0.9% 1000 ML** 1,000 ML IV SCH (13:30)
[2019-05-15] MEDS ORDERED: Furosemide IV* 10 MG/ML 2 ML VIAL (20 MG) IV SCH (14:00)
[2019-05-15] MEDS: Dexamethasone IV* 4 MG/ML 1 ML (4 MG) IV SLOW PU SCH ×2 (14:11→21:11)
[2019-05-15] MEDS: Pantoprazole IV* 40 MG IV SCH (14:11)
--- NOTE | 2019-05-15 14:11 | CONSULT ---
Consult Consult: REASON FOR CONSULTATION:
[2019-05-15] MEDS: Morphine TAB Extended Release (*) 15 MG TAB.ER PO SCH ×2 (14:20→21:11)
[2019-05-15] MEDS: Senna TAB 8.6 mg* TAB PO SCH (14:20)
[2019-05-15] MEDS: Sodium Bicarbonate (ANTACID)* 650 MG TAB PO SCH ×2 (14:20→17:53)
[2019-05-15] MEDS: Cyclobenzaprine TAB* 10 MG PO PRN (14:20)
[2019-05-15] MEDS: LORazepam TAB(*) 0.5 MG PO PRN (14:20)
--- NOTE | 2019-05-15 14:20 | CONSULT ---
Consult Consult: DATE OF CONSULT: 05/15/19 REASON FOR CONSULTATION: Hemodynamic monitoring in setting of new hemorrhagic brain lesion HPI: Ponce Temple is a 54 year-old man with a history of HTN, hyperlipidemia, and malignant melanoma 8 years ago who was newly diagnosed with metastatic melanoma. He was evaluated last week for urinary retention. He was found to have cauda equina syndrome, intra-abdominal mass adjacent to right kidney, extensive abdominal lymphadenopathy, and CHECK VIEWER metastases. He was admitted on . Biopsy of pelvic lymph node confirmed metastatic melanoma. He was treated with steroids and underwent palliative radiation to the spine on 05/08. He was discharged on 05/08. He reports that he has had lower abdominal pain which he attributed to radiation. He also reports abdominal bloating, nausea, and constipation which started the past couple of days. He has had worsening headaches during the past couple of days. His balance has not been good for a few weeks, but he has been more "wobbly" since his discharge. He also reports seeing flashing lights. Denies fevers or chills. He was seen in oncology clinic today. He also underwent CT head for follow up of the brain lesions. He was found to have an acute hemorrhagic lesion in the left parietotemporal region without midline shift. He is a direct admit from clinic to the ICU for neurological monitoring. His labs today are notable for WBC 15.8, potassium 5.7, HCO3 17, and creatinine 2.45. He feels he has not been drinking as much fluids as he should be, although he has still been urinating as usual. PMH: H/o malignant melanoma in L thigh and RLE. HTN. Hyperlipidemia. PSH: Wide local excision of melanoma in LLE and RLE. L lymph node dissection. Remote history of shoulder surgery. Home Medications Medication Instructions Recorded Confirmed Type Amlodipine Besylate [Norvasc] 10 mg PO DAILY 05/03/19 05/15/19 History Cholecalciferol (Vitd3)/Vit K2 1 each PO DAILY 05/03/19 05/15/19 History [Dosoquin Tablet] Cyclobenzaprine TAB* [Flexeril 10 10 mg PO TID PRN 05/03/19 05/15/19 History MG TAB*] Rosuvastatin Calcium 20 mg PO BEDTIME 05/03/19 05/15/19 History Turmeric/Turmeric Ext/Pepr Ext 2 cap PO DAILY 05/03/19 05/15/19 History [Turmeric Complex 500 mg Cap] lisinopriL [Prinivil TAB 20 mg] 20 mg PO DAILY 05/03/19 05/15/19 History LORazepam TAB(*) [Ativan 0.5 MG 0.5 mg PO Q6H PRN #20 tab MDD 2 mg 05/08/19 Rx TAB (*)] Morphine TAB Extended Rel(*) [Ms 15 mg PO Q8HR #90 tab.er MDD 45 mg 05/08/19 Rx Contin(*)] oxyCODONE/Acetamin 5/325 MG* 1 tab PO Q6H PRN 05/15/19 05/15/19 History [Percocet 5/325 TAB*] Allergies No Known Allergies Allergy (Verified 05/03/19 14:31) FH: Father in 1979 from ruptured aortic aneurysm. Mother is alive and has diabetes. Brother with diabetes. Another brother with atrial fibrillation. SH: Quit smoking cigars about 6 months ago. Has a history of smoking cigarettes and cigars previously. No recent alcohol use, previously only drank occasionally. Denies recreational drug use. He lives with his . ROS: 10- point review of systems was obtained. Pertinent positives and negatives are in the HPI. PHYSICAL EXAM: HR 88, RR 18, 97% O2 saturation, BP 129/72 General: NAD, very pleasant man who appears stated age. Head: Normocephalic and atraumatic. Eyes: Pupils are equal. No scleral icterus. Mouth: moist mucous membranes. Neck: Supple. Trachea midline CV: Regular rate and rhythm. Resp: Clear to auscultation. No accessory muscle use. Abdomen: Soft, mildly distended. Obese. Tenderness in lower abdomen. No rebound or guarding. Extremities: Moderate pedal edema, L>R. Warm. Skin: No lesions. Warm and dry. Neuro: Alert and oriented x3. Moves all extremities equally. Psych: Normal affect. Laboratory Results - last 24 hr 05/15/19 05/15/19 05/15/19 10:05 10:05 11:10 WBC 15.8 H RBC 4.83 Hgb 16.3 Hct 49 MCV 100 H MCH 34 H MCHC 34 RDW 14 Plt Count 251 MPV 7.2 L Neut % (Auto) 92.5 Lymph % (Auto) 1.6 Jones % (Auto) 5.8 Eos % (Auto) 0.0 Baso % (Auto) 0.1 Absolute Neuts (auto) 14.6 H Absolute Lymphs (auto) 0.3 L Absolute Monos (auto) 0.9 H Absolute Eos (auto) 0.0 Absolute Basos (auto) 0.0 Absolute Nucleated RBC 0.0 Nucleated RBC % 0.0 Sodium 132 L Potassium TNP 5.7 H Chloride 102 Carbon Dioxide 17 L Anion Gap 13 H BUN 83 H Creatinine 2.45 H Est GFR ( Amer) 33.3 Est GFR (Non-Af Amer) 27.5 BUN/Creatinine Ratio 33.9 H Glucose 179 H Calcium 9.4 Total Bilirubin 0.70 AST TNP 16 ALT 34 Alkaline Phosphatase 56 Total Protein 6.9 Albumin 4.3 Globulin 2.6 Albumin/Globulin Ratio 1.[address]- L temporoparietal metastasis with acute hemorrhage up to 2.0 cm. R frontal mass with subacute blood products unchanged. IMPRESSION: 54M with new hemorrhagic brain metastasis. -Acute cerebral hemorrhage due to metastasis -Metastatic melanoma -BANG likely due to hypovolemia -Anion gap metabolic acidosis -Hyperkalemia -HTN -Hyperlipidemia PLAN: Neuro: Neurosurgery consulted, f/u recommendations. Steroids ordered. Nanira for seizure prophylaxis. MRI brain ordered. Repeat CT head tomorrow. Neurological checks q2h Pain control with long acting morphine and oxycodone for breakthrough (both started during last admission), Tylenol prn, Flexeril (home medication) prn. Continue home Ativan prn for anxiety. CV: Continue home amlodipine, hold if SBP <100. Goal MAP >65. Hold home lisinopril due to BANG. Will order EKG to rule out changes from hyperkalemia. Continue home statin. Resp: No acute issues. Titrate FiO2 to keep O2 sat >90% Incentive spirometry. GI: Regular diet. GI ppx with PPI due to steroid treatment. Bowel regimen for constipation: MOM, senna Renal: NS @ 75ml/h for rehydration. BMP in AM to f/u K and creatinine. Strict I&Os F/u renal US to r/o hydronephrosis. Bicarbonate ordered per oncology. ID: Leukocytosis at 15.8 but afebrile. I think the elevated WBC reflects hypovolemia. Will f/u CBC in AM. Heme: F/u PTT/PT/INR. Daily CBC. Hold DVT ppx due to cerebral hemorrhage. Endo: Order insulin sliding scale if BG >180 MSK: Bedrest. PT when safe to be OOB. He was discharged with home PT. Wounds: None Code status: Full Status: Guarded Dispo: ICU for close neurological monitoring and monitoring of metabolic derangements. Oncology primary Critical care time: 30 minutes
[2019-05-15] MEDS: Scopolamine 1.5 mg* PATCH TRANSDERM SCH ×3 (14:23→18:04)
[2019-05-15 15:06] LABS: Activated Partial Thrombo Time 22.7 seconds (26.0-38.0); INR 0.93 (0.82-1.09)
[2019-05-15] MEDS: levETIRAcetam 500 MG IVPREMIX* 500 MG/100 ML BAG IV SCH (15:48)
[2019-05-15 16:50] LABS: Urine Appearance Clear; Urine Bilirubin Negative (Negative); Urine Blood 1+ (Negative); Urine Color Yellow; Urine Glucose 1+(50 mg/dL) (Negative); Urine Ketones Negative (Negative); Urine Nitrite Negative (Negative); Urine Protein Negative (Negative); Urine Specific Gravity 1.016 (1.010-1.030); Urine Urobilinogen Negative (Negative)
[2019-05-15 16:52] LABS: Urine Bacteria Absent (Absent); Urine Red Blood Cell 2+(6-10/hpf) (Absent); Urine White Blood Cell Absent (Absent)
[2019-05-15] MEDS ORDERED: Gadoteridol* (CONTRAST) 279.3 MG/ML 10 ML IV ONE (17:18)
[2019-05-15] MEDS: Metoclopramide TAB* 10 MG PO PRN (17:53)
[2019-05-15] MEDS: Atorvastatin* 40 MG TAB PO SCH (21:11)
--- NOTE | 2019-05-15 22:48 | CONS ---
CONSULTATION REPORT: DATE OF CONSULT: 05/15/19. HISTORY OF PRESENT ILLNESS: The patient is a very pleasant 54-year-old right- handed gentleman with a history of hypertension, hyperlipidemia, and malignant melanoma, who was recently diagnosed with metastatic disease. The patient was found to have multiple brain metastases and multiple leptomeningeal metastases in the cauda equina with urinary retention. The patient underwent palliative radiation to the spine and was scheduled for gamma knife in [facility] by Dr. Richards. The patient also was found to have intra-abdominal mass adjacent to the right kidney with extensive abdominal lymphadenopathy. Biopsy of pelvic lymph node confirmed metastatic melanoma. The patient reports that for the last 2 days he has been having nausea and some subjective weakness on the left upper and lower extremity with difficulty with his balance. The patient denies any numbness or tingling of his extremities, some numbness of his plantar surface of his left foot. The patient ambulates with some mild difficult because of his balance difficulties. He denies any urinary or GI incontinence, although he reports that he has been having constipation. His perianal sensation is intact. The patient denies any seizures. Denies any vomiting. Has some mild headache, which is chronic. 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 He is , lives with his . He has no biological children, but he has several grandchildren from his side as he reports. PAST MEDICAL HISTORY: History of melanoma, hypertension, hyperlipidemia. PAST SURGICAL HISTORY: Local excision of melanoma in left lower extremity and right lower extremity, lymph node dissection, remote history of shoulder surgery. MEDICATIONS: The patient is on: 1. Amlodipine. 2. Vitamin D. 3. Flexeril. 4. Rosuvastatin. 5. Turmeric. 6. Lisinopril. 7. Lorazepam. 8. Morphine extended release. 9. Percocet. ALLERGIES: No known drug allergies. FAMILY HISTORY: The patient's father from rupture of aortic aneurysm. Mother is alive with a history of diabetes. SOCIAL HISTORY: Tobacco negative. The patient used to smoke cigars until approximately 6 months ago as well as has a history of smoking cigarettes. Alcohol negative. Recreational drug use negative. PHYSICAL EXAM: The patient is not in acute distress. He is awake, alert, and oriented x3. His pupils are 3 mm on the right and 2 mm on the left, both reactive. Cranial nerves II through XII are grossly intact. Motor 4-5/5 in all extremities. No pronator drift with some mild give away weakness in the left lower extremity. Sensory grossly intact to light touch. Deep tendon reflexes + 1 bilaterally. No clonus. Babinski positive bilaterally. Tutu's negative. The patient has no tenderness to palpation of the cervical, thoracic or lumbar spine. He has free range of motion in the cervical spine. No meningeal signs. DIAGNOSTIC STUDIES/LAB DATA: The patient had a CT scan of the brain that reveals 2 hemorrhagic lesions on the right frontal and the left parietal lobe. The patient has also an MRI of the brain that revealed the same hemorrhagic lesions with multiple metastatic lesions. ASSESSMENT: The patient is a very pleasant 54-year-old right hand gentleman with history of metastatic melanoma with 2 hemorrhagic lesions. PLAN/RECOMMENDATIONS: The patient at this point is doing quite well. He has been admitted in the ICU by the oncology service. He is placed on steroids and seizure prophylaxis. His creatinine was elevated and the patient received a Connor for urinary retention and he was started on IV fluids. He was scheduled for a CT scan in the morning. We discussed with the patient regarding imaging findings. The patient at this point seems stable. We discussed options of radiosurgery versus surgical intervention, or WBRT. Because of the location of the left parietal lesion, surgery may be challenging, as it seems to affect the angular gyrus, supramarginal and possible the arcuate fasciculus. We discussed that if his hemorrhage expands and he develops life-threatening condition, we may consider surgical intervention, and the patient understands the risks and benefits of this procedures including, coma, paralysis, , injury to the adjacent structures, temporary or permanent aphasia, anesthesia risks. The patient's health care proxy is his as he reports. We will discuss with Dr. Velasquez regarding treatment options and potential transfer to another facility if needed. Thank you very much for allowing us to participate in the care of this patient. Please do not hesitate to contact our office in case you have any further questions or concerns regarding the care of this patient. [id number]/CPS #: [id number] CHELSEA
[2019-05-16] MEDS: Metoclopramide TAB* 10 MG PO PRN ×3 (00:45→20:18)
[2019-05-16] MEDS: levETIRAcetam 500 MG IVPREMIX* 500 MG/100 ML BAG IV SCH ×2 (00:45→13:36)
[2019-05-16] MEDS: Sodium Bicarbonate (ANTACID)* 650 MG TAB PO SCH ×4 (00:46→19:02)
[2019-05-16 04:47] LABS: ABS Lymphocytes 0.2 10^3/ul (1.0-4.8); ABS Monocytes 0.5 10^3/ul (0-0.8); ABS Neutrophils 8.1 10^3/ul (1.5-7.7); Hematocrit 44 % (42-52); Hemoglobin 14.7 g/dL (14.0-18.0); Lymphocyte % 1.7 %; Mean Corpuscular HGB Conc 34 g/dL (31-36); Mean Corpuscular Hemoglobin 34 pg (27-31); Mean Corpuscular Volume 101 fL (80-94); Platelet Count 186 10^3/uL (150-450); Red Blood Count 4.33 10^6 /uL (4.18-5.48); Red Cell Distribution Width 13 % (10-15); White Blood Count 8.8 10^3/uL (3.5-10.8)
[2019-05-16 05:03] LABS: Albumin 3.4 g/dL (3.2-5.2); Albumin/Globulin Ratio 1.5 (1-3); BUN/Creatinine Ratio 42.7 (8-20); Calcium 8.7 mg/dL (8.6-10.3); EGFR African American 55.6 (>60); EGFR Non-African American 45.9 (>60); Globulin 2.2 g/dL (2-4); Total Bilirubin 0.7 mg/dL (0.2-1.0); Total Protein 5.6 g/dL (6.4-8.9)
[2019-05-16 05:05] LABS: Potassium 6.2 mmol/L (3.5-5.0)
[2019-05-16] MEDS ORDERED: Insulin REGULAR(*) 1 UNITS UNIT IV PUSH ONE (05:11)
[2019-05-16] MEDS ORDERED: CALCIUM GLUCONATE 1GM/50ML NS 1 GM/50 ML BAG IV ONE (05:11)
[2019-05-16] MEDS ORDERED: Sodium Polystyrene ORAL.SUSP* 15 GM/60 ML BTL PO ONE (05:11)
[2019-05-16] MEDS ORDERED: Dextrose 50% Syringe 50 ML* 25 GM/50 ML SYRINGE IV PUSH ONE (06:00)
[2019-05-16] MEDS: Morphine TAB Extended Release (*) 15 MG TAB.ER PO SCH ×3 (06:27→20:44)
[2019-05-16] MEDS: Dexamethasone IV* 4 MG/ML 1 ML (4 MG) IV SLOW PU SCH ×3 (06:27→20:44)
[2019-05-16] MEDS ORDERED: Furosemide IV* 10 MG/ML 2 ML VIAL (20 MG) IV SLOW PU ONE (07:30)
--- NOTE | 2019-05-16 08:51 | PN ---
Date of Service: 05/16/19 Critical Care Services: Patient is feeling better this morning. Connor catheter placed yesterday drained over 2L. Renal US showed moderate right and mild left hydronephrosis. He denies abdominal pain this morning. He still feels bloated but better than yesterday. He is tolerating regular diet and denies nausea. Denies chest pain, shortness of breath, or vision changes. Continues to have jaw numbness. Afebrile. Hypertension up to SBP 150s. Normal HR. MRI yesterday showed a little worsening in bleed. CT head done this morning and read is pending. Vital Signs: Temp Pulse Resp BP SpO2 FiO2 98.4 F 53 13 151/80 100 05/16/19 07:43 05/16/19 06:03 05/16/19 06:03 05/16/19 06:03 05/16/19 06:03 Physical Exam: Gen: NAD. Very pleasant. HEENT: Normocephalic and atraumatic. Pupils equal. Moist mucous membranes. Lungs: Clear to auscultation. Cardiac: RRR Abdomen: Soft, nondistended and improved from yesterday. Nontender. Extremities: Warm. Mild pedal edema L>R, improved from yesterday. Neuro: Awake, alert and oriented x3. Speech clear. Moves all extremities equally. Psych: Normal affect. Fluid Balance (Past 24 Hours): I= O= Net Intake & Output 05/14/19 05/15/19 05/16/19 05/17/19 06:59 06:59 06:59 06:59 Intake Total 2486.2 Output Total 4730 345 Balance -2243.8 -345 Weight 279 lb 1.683 oz Intake: IV Fluids 1076.2 NS (0.9%) 942 PB - Keppra 114 calcium gluconate 20.2 IVPB 100 PB - Keppra 100 Oral 1310 Output: Urine 0 Connor 2580 345 Residual 2150 Connor 16 Fr Temperature 2150 Probe Other: Estimated Void Large # Voids 1 Labs: Laboratory Results - last 24 hr 05/15/19 05/15/19 05/15/19 10:05 10:05 11:10 WBC 15.8 H RBC 4.83 Hgb 16.3 Hct 49 MCV 100 H MCH 34 H MCHC 34 RDW 14 Plt Count 251 MPV 7.2 L Neut % (Auto) 92.5 Lymph % (Auto) 1.6 [place] % (Auto) 5.8 Eos % (Auto) 0.0 Baso % (Auto) 0.1 Absolute Neuts (auto) 14.6 H Absolute Lymphs (auto) 0.3 L Absolute Monos (auto) 0.9 H Absolute Eos (auto) 0.0 Absolute Basos (auto) 0.0 Absolute Nucleated RBC 0.0 Nucleated RBC % 0.0 INR (Anticoag Therapy) APTT Sodium 132 L Potassium TNP 5.7 H Chloride 102 Carbon Dioxide 17 L Anion Gap 13 H BUN 83 H Creatinine 2.45 H Est GFR ( Amer) 33.3 Est GFR (Non-Af Amer) 27.5 BUN/Creatinine Ratio 33.9 H Glucose 179 H Calcium 9.4 Total Bilirubin 0.70 AST TNP 16 ALT 34 Alkaline Phosphatase 56 Total Protein 6.9 Albumin 4.3 Globulin 2.6 Albumin/Globulin Ratio 1.7 Urine Color Urine Appearance Urine pH Ur Specific Ace Urine Protein Urine Ketones Urine Blood Urine Nitrate Urine Bilirubin Urine Urobilinogen Ur Leukocyte Esterase Urine WBC (Auto) Urine RBC (Auto) Urine Bacteria Urine Glucose 05/15/19 05/15/19 05/15/19 14:39 14:39 16:21 WBC RBC Hgb Hct MCV MCH MCHC RDW Plt Count MPV Neut % (Auto) Lymph % (Auto) [place] % (Auto) Eos % (Auto) Baso % (Auto) Absolute Neuts (auto) Absolute Lymphs (auto) Absolute Monos (auto) Absolute Eos (auto) Absolute Basos (auto) Absolute Nucleated RBC Nucleated RBC % INR (Anticoag Therapy) 0.93 APTT 22.7 L Sodium Potassium TNP Chloride Carbon Dioxide Anion Gap BUN Creatinine Est GFR ( Amer) Est GFR (Non-Af Amer) BUN/Creatinine Ratio Glucose Calcium Total Bilirubin AST ALT Alkaline Phosphatase Total Protein Albumin Globulin Albumin/Globulin Ratio Urine Color Yellow Urine Appearance Clear Urine pH 5.0 Ur Specific Ace 1.016 Urine Protein Negative Urine Ketones Negative Urine Blood 1+ A Urine Nitrate Negative Urine Bilirubin Negative Urine Urobilinogen Negative Ur Leukocyte Esterase Negative Urine WBC (Auto) Absent Urine RBC (Auto) 2+(6-10/hpf) A Urine Bacteria Absent Urine Glucose 1+(50 mg/dl) A 05/16/19 05/16/19 04:35 04:35 WBC 8.8 RBC 4.33 Hgb 14.7 Hct 44 MCV 101 H MCH 34 H MCHC 34 RDW 13 Plt Count 186 MPV 7.0 L Neut % (Auto) 92.9 Lymph % (Auto) 1.7 [place] % (Auto) 5.3 Eos % (Auto) 0.0 Baso % (Auto) 0.1 Absolute Neuts (auto) 8.1 H Absolute Lymphs (auto) 0.2 L Absolute Monos (auto) 0.5 Absolute Eos (auto) 0.0 Absolute Basos (auto) 0.0 Absolute Nucleated RBC 0.0 Nucleated RBC % 0.0 INR (Anticoag Therapy) APTT Sodium 134 L Potassium 6.2 H* Chloride 106 Carbon Dioxide 23 Anion Gap 5 BUN 67 H Creatinine 1.57 H Est GFR ( Amer) 55.6 Est GFR (Non-Af Amer) 45.9 BUN/Creatinine Ratio 42.7 H Glucose 146 H Calcium 8.7 Total Bilirubin 0.70 AST 12 L ALT 25 Alkaline Phosphatase 46 Total Protein 5.6 L Albumin 3.4 Globulin 2.2 Albumin/Globulin Ratio 1.5 Urine Color Urine Appearance Urine pH Ur Specific Ace Urine Protein Urine Ketones Urine Blood Urine Nitrate Urine Bilirubin Urine Urobilinogen Ur Leukocyte Esterase Urine WBC (Auto) Urine RBC (Auto) Urine Bacteria Urine Glucose Studies: CT head 05/15 Renal US 05/15 MRI brain 05/15 CT head 05/16 EKG 05/15, 05/16 Nutrition: Regular Impression: 54M with metastatic melanoma, admitted to ICU with new hemorrhagic metastatic lesion in the brain. Acute cerebral hemorrhage due to metastases Metastatic melanoma BANG due to post-renal obstruction, improving after Connor placement Hyperkalemia HTN, stable Hyperlipidemia, stable Anxiety, stable Plan: Neuro: Neurosurgery following. F/u repeat CT head. Continue steroids and Keppra for seizure prophylaxis. Neuro checks q2h Pain control: long acting morphine, oxycodone prn, tylenol prn, flexeril prn. Anxiety: Ativan prn CV: Goal MAP >65, SBP <160. Continue home amlodipine. Hold lisinopril in setting of BANG. EKG today showed nonspecific T wave changes, on telemetry. Continue home statin. Resp: Titrate FiO2 to keep O2 sat> 90%. GI: Regular diet. Speech therapy consulted due to jaw numbness (patient has difficulty with chewing). PPI for reflux, prophylaxis while on steroids Bowel regimen: MOM, senna Renal: BANG improving. Repeat BMP later this morning to f/u K and Cr. Already given insulin and kayexalate. Will also give Lasix 20. Connor for urinary retention. Strict I&Os. ID: Normal WBC and afebrile. Heme: Daily CBC. DVT ppx: SCDs only due to cerebral hemorrhage. Endo: Insulin sliding scale if BG >180. MSK: Bedrest due to cerebral hemorrhage. Wounds: None Status: Guarded Code status: Full Dispo: ICU for electrolyte derangements, neurological monitoring. Critical Care Time: 30 min
[2019-05-16] MEDS: amLODIPine TAB* 5 MG PO SCH (09:20)
[2019-05-16] MEDS: Senna TAB 8.6 mg* TAB PO SCH (09:20)
[2019-05-16] MEDS: Magnesium Hydroxide LIQ* 30 ML UDC PO SCH (09:21)
[2019-05-16] MEDS: Pantoprazole IV* 40 MG IV SCH (09:26)
[2019-05-16] MEDS: LORazepam TAB(*) 0.5 MG PO PRN (10:30)
[2019-05-16 12:24] LABS: BUN/Creatinine Ratio 40.9 (8-20); Calcium 9.3 mg/dL (8.6-10.3); EGFR African American 56.8 (>60)
[2019-05-16 12:25] LABS: Potassium 5.4 mmol/L (3.5-5.0)
--- NOTE | 2019-05-16 19:17 | PN ---
Progress Note - Progress Note Date of Service: 05/16/19 SOAP: Subjective: []No events ON. Tolerates PO well. On steroids. No MCCAIN. Connor Objective: []VSS, AAOx3 KESHAWN, CN II-XII grossly intact Motor 4-5/5 all extremities. No pronator drift. Sensory grossly intact to light touch. Assessment: []54 yom HD#1 Multiple metastatic lesions in brain, Leptomeningeal metastasis cauda equina, primary melanoma. Plan: []Monitor VS, [facility] Monitor electrolytes. Continue steroids. SRS when stable. Will discuss with Dr Velasquez, Dr Richards. Appreciate ICU care. Kwame Rondon MD
[2019-05-16] MEDS: Ondansetron INJ* 2 MG/ML VIAL IV PRN (20:18)
[2019-05-16] MEDS: Atorvastatin* 40 MG TAB PO SCH (20:44)
[2019-05-17] MEDS: Sodium Bicarbonate (ANTACID)* 650 MG TAB PO SCH ×2 (00:07→05:38)
[2019-05-17] MEDS: levETIRAcetam 500 MG IVPREMIX* 500 MG/100 ML BAG IV SCH (00:07)
[2019-05-17 04:46] LABS: BUN/Creatinine Ratio 40.1 (8-20); Calcium 8.7 mg/dL (8.6-10.3); EGFR African American 62.4 (>60); EGFR Non-African American 51.6 (>60)
[2019-05-17] MEDS ORDERED: Dextrose 50% Syringe 50 ML* 25 GM/50 ML SYRINGE IV PUSH ONE (04:59)
[2019-05-17] MEDS ORDERED: Insulin REGULAR(*) 1 UNITS UNIT IV PUSH ONE (04:59)
[2019-05-17] MEDS ORDERED: CALCIUM GLUCONATE 1GM/50ML NS 1 GM/50 ML BAG IV ONE (05:01)
[2019-05-17] MEDS ORDERED: Sodium Polystyrene ORAL.SUSP* 15 GM/60 ML BTL PO ONE (05:02)
[2019-05-17] MEDS: Dexamethasone IV* 4 MG/ML 1 ML (4 MG) IV SLOW PU SCH ×3 (05:38→22:26)
[2019-05-17] MEDS: Morphine TAB Extended Release (*) 15 MG TAB.ER PO SCH ×3 (05:38→22:26)
--- NOTE | 2019-05-17 05:52 | PN ---
Hospitalist Progress Note Date of Service: 05/17/19 HOSPITALIST ADDENDUM Called by RN due to K 6.0. Likely associated with his BANG. EKG shows no peaked T waves and normal QT. Will give Insulin/glucose, calcium gluconate and kayexalate. Repeat K later today.
[2019-05-17] MEDS ORDERED: Furosemide IV* 10 MG/ML 2 ML VIAL (20 MG) IV SLOW PU ONE ×2 (07:36→16:31)
[2019-05-17] MEDS: Ondansetron INJ* 2 MG/ML VIAL IV PRN ×2 (08:02→20:04)
[2019-05-17] MEDS: Metoclopramide TAB* 10 MG PO PRN ×3 (08:03→20:22)
[2019-05-17] MEDS: Magnesium Hydroxide LIQ* 30 ML UDC PO SCH (08:03)
[2019-05-17] MEDS: Senna TAB 8.6 mg* TAB PO SCH (08:03)
[2019-05-17] MEDS: Pantoprazole TAB * 40 MG TAB PO SCH (08:03)
[2019-05-17] MEDS: amLODIPine TAB* 5 MG PO SCH (08:03)
[2019-05-17] MEDS: levETIRAcetam TAB* 500 MG PO SCH ×2 (08:03→20:04)
--- NOTE | 2019-05-17 09:10 | PN ---
Date of Service: 05/17/19 Critical Care Services: No complaints this morning. LLE weakness seems improved. He denies headaches, vision changes, chest pain, shortness of breath, abdominal pain, or nausea. He has not had BM since admission and feels his abdomen is bloated. Afebrile. Treated for hyperkalemia this morning with insulin, kayexalate. MOLST completed yesterday. Vital Signs: Temp Pulse Resp BP SpO2 FiO2 97.6 F 55 11 142/82 96 05/17/19 07:55 05/17/19 08:00 05/17/19 08:00 05/17/19 08:00 05/17/19 08:00 Physical Exam: Gen: NAD HEENT: Normocephalic and atraumatic. No scleral icterus. Moist mucous membranes. Lungs: Clear to auscultation. Cardiac: RRR Abdomen: soft, mildly distended, nontender. Extremities: Warm. Minimal pedal edema. Neuro: Alert and oriented x3. Moves all extremities equally. Psych: Normal affect. Fluid Balance (Past 24 Hours): I= O= Net Intake & Output 05/15/19 05/16/19 05/17/19 05/18/19 06:59 06:59 06:59 06:59 Intake Total 2486.2 1174 Output Total 4730 4290 225 Balance -2243.8 -3116 -225 Weight 279 lb 1.683 oz 280 lb 7.724 oz Intake: IV Fluids 1076.2 391 NS (0.9%) 942 287 PB - Keppra 114 104 calcium gluconate 20.2 IVPB 100 193 PB - Keppra 100 128 calcium gluconate 65 Oral 1310 590 Output: Urine 0 Connor 2580 4290 225 Residual 2150 Connor 16 Fr Temperature 2150 Probe Other: Estimated Void Large # Voids 1 Labs: Laboratory Results - last 24 hr 05/16/19 05/17/19 11:39 04:22 Sodium 135 135 Potassium 5.4 H 6.0 H Chloride 100 L 104 Carbon Dioxide 26 25 Anion Gap 9 6 BUN 63 H 57 H Creatinine 1.54 H 1.42 H Est GFR ( Amer) 56.8 62.4 Est GFR (Non-Af Amer) 47.0 51.6 BUN/Creatinine Ratio 40.9 H 40.1 H Glucose 202 H 154 H Calcium 9.3 8.7 Nutrition: Regular diet Impression: 54M with metastatic melanoma, admitted to ICU with new hemorrhagic metastatic lesion in the brain. Acute cerebral hemorrhage due to metastases Metastatic melanoma BANG due to post-renal obstruction, improving after Connor placement Hyperkalemia HTN, stable Hyperlipidemia, stable Anxiety, stable Plan: Neuro: Neurosurgery following. Another repeat CT head this morning. Continue steroids and Keppra for seizure prophylaxis. Neuro checks q2h Pain control: long acting morphine, oxycodone prn, tylenol prn, flexeril prn. Anxiety: Ativan prn CV: Goal MAP >65, SBP <160. Continue home amlodipine. Hold lisinopril in setting of BANG. Continuous telemetry. Continue home statin. Resp: Titrate FiO2 to keep O2 sat> 90%. GI: Switch to renal diet. Speech therapy consulted.. PPI for reflux and prophylaxis while on steroids Bowel regimen: MOM, senna. Will add Miralax and suppository prn. Renal: BANG continues to improve. Already given insulin and kayexalate for hyperkalemia. Will also give another Lasix 20. Repeat BMP later this morning to f/u K and Cr. Connor for urinary retention. Strict I&Os. ID: Normal WBC and afebrile. Heme: Daily CBC. DVT ppx: SCDs only due to cerebral hemorrhage. Endo: Insulin sliding scale if BG >180. MSK: If repeat CT is stable, advance activity as tolerated. PT. Wounds: None Status: Stable Code status: DNR/DNI. MOLST in chart. Dispo: Possible transfer to floor later today if head CT is stable. Will also discuss with Dr Velasquez's team.
--- NOTE | 2019-05-17 10:32 | PN ---
Progress Note - Progress Note Date of Service: 05/17/19 SOAP: Subjective: [Reports that he is feeling pretty good this morning. No MCCAIN. Mild, intermittent nausea. No abd pain. No BM yet, but feels like he's close. Improved LE edema. Improved sensation and strength in legs. No new pain or weakness.] Objective: [ Vital Signs: Temp Pulse Resp BP Pulse Ox 97.6 F 55 14 142/82 96 05/17/19 07:55 05/17/19 08:00 05/17/19 09:00 05/17/19 08:00 05/17/19 08:00 Acetaminophen (Tylenol Tab*) 650 mg PO Q4H PRN PRN Reason: pain/fever Amlodipine Besylate (Norvasc Tab*) 10 mg PO DAILY [facility] Last Admin: 05/17/19 08:03 Dose: 10 mg Atorvastatin Calcium (Lipitor*) 40 mg PO BEDTIME [facility] Last Admin: 05/16/19 20:44 Dose: 40 mg Cyclobenzaprine HCl (Flexeril Tab*) 10 mg PO TID PRN PRN Reason: SPASMS Last Admin: 05/15/19 14:20 Dose: 10 mg Dexamethasone Sodium Phosphate (Decadron Iv*) 6 mg IV SLOW PU Q8HR [facility] Last Admin: 05/17/19 05:38 Dose: 6 mg Levetiracetam (Keppra Tab*) 500 mg PO BID [facility] Last Admin: 05/17/19 08:03 Dose: 500 mg Lorazepam (Ativan Tab(*)) 0.5 mg PO Q6H PRN PRN Reason: ANXIETY Last Admin: 05/16/19 10:30 Dose: 0.5 mg Magnesium Hydroxide (Milk Of Magnesia Liq*) 30 ml PO DAILY [facility] Last Admin: 05/17/19 08:03 Dose: 30 ml Metoclopramide HCl (Reglan Tab*) 5 mg PO Q6H PRN PRN Reason: DYSPEPSIA Last Admin: 05/17/19 08:03 Dose: 5 mg Morphine Sulfate (Ms Contin(*)) 15 mg PO Q8HR [facility] Last Admin: 05/17/19 05:38 Dose: 15 mg Ondansetron HCl (Zofran Inj*) 4 mg IV Q4H PRN PRN Reason: NAUSEA/VOMITING Last Admin: 05/17/19 08:02 Dose: 4 mg Oxycodone HCl (Roxycodone Tab*) 5 mg PO Q6H PRN PRN Reason: PAIN - MODERATE Pantoprazole Sodium (Protonix Tab*) 40 mg PO DAILY [facility] Last Admin: 05/17/19 08:03 Dose: 40 mg Pharmacy Profile Note (Scopolamine Patch Remove*) 1 note PATCH OFF Q72H [facility] Scopolamine (Transderm-Scop 1.5 Mg Patch*) 1 patch TRANSDERM Q72H [facility] Last Admin: 05/15/19 18:04 Dose: 1 patch Senna (Senokot 8.6 Mg Tab*) 1 tab PO DAILY [facility] Last Admin: 05/17/19 08:03 Dose: 1 tab Laboratory Results - last 24 hr 05/16/19 05/17/19 11:39 04:22 Sodium 135 135 Potassium 5.4 H 6.0 H Chloride 100 L 104 Carbon Dioxide 26 25 Anion Gap 9 6 BUN 63 H 57 H Creatinine 1.54 H 1.42 H Est GFR ( Amer) 56.8 62.4 Est GFR (Non-Af Amer) 47.0 51.6 BUN/Creatinine Ratio 40.9 H 40.1 H Glucose 202 H 154 H Calcium 9.3 8.7 Exam: Gen: relatively well appearing 54 yo male, appears anxious but smiles easily HEENT: MMM CV: RRR, no m/r/g Resp: CTA, no w/c/r Abd: mildly distended, active BS - nonTTP Ext: trace LE edema (marked improvement) Neuro: R pupil 4mm, L pupil 2mm. FROM in all extremities, no noted strength deficits. Decreased sensation in LLE but improved since admission. Assessment: [This is a 54 yo male with a relatively new diagnosis of metastatic melanoma admitted earlier this month with urinary retention and intractable pain found to have leptomeningeal disease involving the conus medularis now s/p palliative RT to the [facility]. Presented with increased weakness and intractable nausea found to have an acute cerebral hemorrhage at a known metastatic site and recurrent urinary obstruction with BANG. Hemorrhage appears stable with plans for WBRT. Renal function improved with Connor catheter in place but with refractory hyperkalemia.] Plan: [1. Cerebral hemorrhage - no plans for surgical intervention - neurosurgery input greatly appreciated - Dr Velasquez consulted with Dr Richards by phone who recommended WBRT over proceeding with planned gammaknife - WBRT starting this afternoon - cont dex and keppra (can likely stop keppra after completion of WBRT) 2. BANG secondary to urinary obstruction - improved with Connor catheter - refractory hyperkalemia of unclear etiology, but assume this will improve as his renal function improves - cont to follow/treat hyperkalemia - repeat K pending for later this morning - Connor catheter will likely be necessary on a correction basis 3. Metastatic melanoma - BRAF negative - hopeful to get to systemic immunotherapy following WBRT and dex taper - prognosis is poor and has been reviewed with patient and family 4. DNR - MOLST signed 05/16 5. DVT prophylaxis - no chemical prophylaxis Dispo: with stable CT ok to move out of ICU to medical floor.
[2019-05-17] MEDS: LORazepam TAB(*) 0.5 MG PO PRN (11:12)
[2019-05-17 11:52] LABS: BUN/Creatinine Ratio 38.9 (8-20); Calcium 8.9 mg/dL (8.6-10.3); EGFR African American 61.4 (>60); EGFR Non-African American 50.7 (>60)
[2019-05-17 11:53] LABS: Potassium 5.4 mmol/L (3.5-5.0)
--- NOTE | 2019-05-17 18:43 | PN ---
Progress Note - Progress Note Date of Service: 05/17/19 SOAP: Subjective: []Patient seen earlier this am. No events ON. Tolerates PO well. On steroids. No MCCAIN. Geeta Objective: []VSS, AAOx3 KESHAWN, CN II-XII grossly intact Motor 4-5/5 all extremities. No pronator drift. Sensory grossly intact to light touch. Assessment: []54 yom HD#2 Multiple metastatic lesions in brain, Leptomeningeal metastasis cauda equina, primary melanoma. Plan: []Monitor VS, Neurochecks CT this am without changes. Monitor electrolytes. Creatinine improving. Continue steroids. Discussed with Dr Richards yesterday. Plan for WBR today, possible g knife for larger lesions in the future. Ok to transfer to floor from NS standpoint. Appreciate ICU care. Kwame Rondon MD
[2019-05-17] MEDS: Atorvastatin* 40 MG TAB PO SCH (20:04)
[2019-05-18] MEDS: Dexamethasone IV* 4 MG/ML 1 ML (4 MG) IV SLOW PU SCH ×3 (05:46→21:08)
[2019-05-18] MEDS: Morphine TAB Extended Release (*) 15 MG TAB.ER PO SCH ×3 (05:46→21:07)
[2019-05-18] MEDS: LORazepam TAB(*) 0.5 MG PO PRN ×2 (05:46→16:37)
[2019-05-18 06:51] LABS: Calcium 8.9 mg/dL (8.6-10.3)
[2019-05-18 06:52] LABS: Potassium 5.7 mmol/L (3.5-5.0)
[2019-05-18 06:56] LABS: EGFR African American 60.4 (>60); EGFR Non-African American 49.9 (>60)
[2019-05-18 07:03] LABS: Hematocrit 44 % (42-52); Mean Corpuscular HGB Conc 34 g/dL (31-36); Mean Corpuscular Hemoglobin 34 pg (27-31); Mean Corpuscular Volume 101 fL (80-94); Mean Platelet Volume 7.2 fL (7.4-10.4); Platelet Count 158 10^3/uL (150-450); Red Blood Count 4.41 10^6 /uL (4.18-5.48); Red Cell Distribution Width 13 % (10-15); White Blood Count 12.8 10^3/uL (3.5-10.8)
[2019-05-18] MEDS: Senna TAB 8.6 mg* TAB PO SCH (08:48)
[2019-05-18] MEDS: levETIRAcetam TAB* 500 MG PO SCH ×2 (08:48→21:06)
[2019-05-18] MEDS: amLODIPine TAB* 5 MG PO SCH (08:48)
[2019-05-18] MEDS: Pantoprazole TAB * 40 MG TAB PO SCH (08:48)
[2019-05-18] MEDS: Polyethylene Glycol 3350* 17 GM PACKET PO SCH ×2 (08:48→21:07)
[2019-05-18] MEDS: Magnesium Hydroxide LIQ* 30 ML UDC PO SCH (08:48)
--- NOTE | 2019-05-18 09:21 | PN ---
Date of Service: 05/18/19 Critical Care Services: Patient was nauseous yesterday after radiation but nausea has resolved. Continues to have burping/hiccups. No BM since admission. Denies abdominal pain but feels bloated. Denies chest pain or SOB. Denies changes in vision or headaches. Vital Signs: Temp Pulse Resp BP SpO2 FiO2 98.9 F 61 15 138/72 94 05/18/19 07:15 05/18/19 07:00 05/18/19 07:00 05/18/19 04:00 05/18/19 07:00 Physical Exam: Gen: NAD HEENT: Normocephalic and atraumatic. Right pupil 4 mm, L pupil 2 mm which is stable. No scleral icterus. Moist mucous membranes. Neck supple. Lungs: Clear to auscultation. Cardiac: RRR Abdomen: soft, mildly distended which is unchanged. Nontender. Extremities: Minimal pedal edema. Warm. Neuro: Alert and oriented x3. Moves all extremities equally. Psych: Normal affect. Fluid Balance (Past 24 Hours): I= O= Net Intake & Output 05/16/19 05/17/19 05/18/19 05/19/19 06:59 06:59 06:59 06:59 Intake Total 2486.2 1174 880 Output Total 4730 4290 2955 0 Balance -2243.8 -3116 -2075 0 Weight 279 lb 1.683 oz 280 lb 7.724 oz Intake: IV Fluids 1076.2 391 NS (0.9%) 942 287 PB - Keppra 114 104 calcium gluconate 20.2 IVPB 100 193 PB - Keppra 100 128 calcium gluconate 65 Oral 1310 590 880 Output: Urine 0 Connor 2580 4290 2955 0 Residual 2150 Connor 16 Fr Temperature 2150 Probe Other: Estimated Void Large # Voids 1 Labs: Laboratory Results - last 24 hr 05/17/19 05/18/19 05/18/19 10:41 06:22 06:22 WBC 12.8 H RBC 4.41 Hgb 15.0 Hct 44 MCV 101 H MCH 34 H MCHC 34 RDW 13 Plt Count 158 MPV 7.2 L Sodium 136 135 Potassium 5.4 H 5.7 H Chloride 100 L 101 Carbon Dioxide 27 28 Anion Gap 9 6 BUN 56 H 57 H Creatinine 1.44 H 1.46 H Est GFR ( Amer) 61.4 60.4 Est GFR (Non-Af Amer) 50.7 49.9 BUN/Creatinine Ratio 38.9 H 39.0 H Glucose 236 H 157 H Calcium 8.9 8.9 Nutrition: Renal Impression: 54M with metastatic melanoma, admitted to ICU with new hemorrhagic metastatic lesion in the brain. Acute cerebral hemorrhage due to metastases, stable Metastatic melanoma BANG due to post-renal obstruction, improving after Connor placement Hyperkalemia, improving HTN, stable Hyperlipidemia, stable Anxiety, stable Plan: Neuro: Continue steroids and Keppra for seizure prophylaxis. Neuro checks q2h Pain control: long acting morphine, oxycodone prn, tylenol prn, flexeril prn. Anxiety: Ativan prn CV: Goal MAP >65, SBP <160. Continue home amlodipine. Hold lisinopril in setting of BANG. Continuous telemetry. Continue home statin. Resp: Titrate FiO2 to keep O2 sat> 90%. GI: Renal diet. Speech therapy following. PPI for reflux and prophylaxis while on steroids Bowel regimen: MOM, senna. Miralax and suppository today Renal: BANG stable. Hyperkalemia stable. Connor for urinary retention. Strict I&Os. ID: WBC 12.8 today but afebrile. Recheck WBC tomorrow. Heme: Daily CBC. DVT ppx: SCDs only due to cerebral hemorrhage. Endo: Insulin sliding scale if BG >180. MSK: Activity as tolerated. PT. Wounds: None Status: Stable Code status: DNR/DNI. MOLST in chart. Dispo: Transfer to floor today, waiting for bed.
[2019-05-18] MEDS: Sodium Polystyrene ORAL.SUSP* 15 GM/60 ML BTL PO SCH ×2 (09:25→17:34)
--- NOTE | 2019-05-18 09:54 | PN ---
Progress Note - Progress Note Date of Service: 05/18/19 SOAP: Subjective: []Remains in ICU as medical overflow. OOB with PT this AM and very grateful to be sitting upright. Feels he will have a BM today, "Todays the day." Passing gas and denies cramping. Denies pain, however c/o some reflux and hiccups. Admits to persistent anxiety and occasional anxiety attacks. Is looking forward to getting out of the ICU. Medications: Acetaminophen (Tylenol Tab*) 650 mg PO Q4H PRN PRN Reason: pain/fever Amlodipine Besylate (Norvasc Tab*) 10 mg PO DAILY [facility] Last Admin: 05/18/19 08:48 Dose: 10 mg Atorvastatin Calcium (Lipitor*) 40 mg PO BEDTIME [facility] Last Admin: 05/17/19 20:04 Dose: 40 mg Cyclobenzaprine HCl (Flexeril Tab*) 10 mg PO TID PRN PRN Reason: SPASMS Last Admin: 05/15/19 14:20 Dose: 10 mg Dexamethasone Sodium Phosphate (Decadron Iv*) 6 mg IV SLOW PU Q8HR [facility] Last Admin: 05/18/19 05:46 Dose: 6 mg Levetiracetam (Keppra Tab*) 500 mg PO BID [facility] Last Admin: 05/18/19 08:48 Dose: 500 mg Lorazepam (Ativan Tab(*)) 0.5 mg PO Q6H PRN PRN Reason: ANXIETY Last Admin: 05/18/19 05:46 Dose: 0.5 mg Magnesium Hydroxide (Milk Of Magnesia Liq*) 30 ml PO DAILY [facility] Last Admin: 05/18/19 08:48 Dose: 30 ml Metoclopramide HCl (Reglan Tab*) 5 mg PO Q6H PRN PRN Reason: DYSPEPSIA Last Admin: 05/17/19 20:22 Dose: 5 mg Morphine Sulfate (Ms Contin(*)) 15 mg PO Q8HR [facility] Last Admin: 05/18/19 05:46 Dose: 15 mg Ondansetron HCl (Zofran Inj*) 4 mg IV Q4H PRN PRN Reason: NAUSEA/VOMITING Last Admin: 05/17/19 20:04 Dose: 4 mg Oxycodone HCl (Roxycodone Tab*) 5 mg PO Q6H PRN PRN Reason: PAIN - MODERATE Pantoprazole Sodium (Protonix Tab*) 40 mg PO DAILY [facility] Last Admin: 05/18/19 08:48 Dose: 40 mg Pharmacy Profile Note (Scopolamine Patch Remove*) 1 note PATCH OFF Q72H [facility] Polyethylene Glycol/Electrolytes (Miralax (17 Gm Dose Perfecto)) 17 gm PO 0800,2100 [facility] Last Admin: 05/18/19 08:48 Dose: 17 gm Scopolamine (Transderm-Scop 1.5 Mg Patch*) 1 patch TRANSDERM Q72H [facility] Last Admin: 05/15/19 18:04 Dose: 1 patch Senna (Senokot 8.6 Mg Tab*) 1 tab PO DAILY [facility] Last Admin: 05/18/19 08:48 Dose: 1 tab Sodium Polystyrene Sulfonate (Kayexalate Oral.Roz*) 15 gm PO BID WITH MEALS [facility] Last Admin: 05/18/19 09:25 Dose: 15 gm Objective: [] Vital Signs Temp Pulse Resp BP Pulse Ox 98.9 F 61 15 138/72 94 05/18/19 07:15 05/18/19 07:00 05/18/19 07:00 05/18/19 04:00 05/18/19 07:00 Alert and oriented, involved in conversation and care HRR, S1S2, SR-ST on tele LS clear, bilat. with even and non-labored resp. +BS, abd. 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 right 4/5 Connor with dark, yellow urine output Laboratory Results - last 24 hr 05/17/19 05/18/19 05/18/19 10:41 06:22 06:22 WBC 12.8 H RBC 4.41 Hgb 15.0 Hct 44 MCV 101 H MCH 34 H MCHC 34 RDW 13 Plt Count 158 MPV 7.2 L Sodium 136 135 Potassium 5.4 H 5.7 H Chloride 100 L 101 Carbon Dioxide 27 28 Anion Gap 9 6 BUN 56 H 57 H Creatinine 1.44 H 1.46 H Est GFR ( Amer) 61.4 60.4 Est GFR (Non-Af Amer) 50.7 49.9 BUN/Creatinine Ratio 38.9 H 39.0 H Glucose 236 H 157 H Calcium 8.9 8.9 Cortisol 1.71 Assessment: []Mr. Temple is a 54 yo male with a relatively new diagnosis of metastatic melanoma admitted earlier this month with urinary retention and intractable pain found to have leptomeningeal disease involving the conus medularis now s/p palliative RT to the [facility]. He presented to the office on 05/15/19 with increased left sided weakness and intractable nausea found to have an acute cerebral hemorrhage at a known metastatic site and recurrent urinary obstruction with BANG. Hemorrhage appears stable and is now receiving WBRT s/p D1 of 10. Renal function improved with Connor catheter in place but with persistent hyperkalemia. Plan: []1. Cerebral hemorrhage - no plans for surgical intervention, neurosurgery input greatly appreciated - Dr Velasquez consulted with Dr Richards by phone who recommended WBRT over proceeding with planned gammaknife - WBRT x10 fractions, will complete 05/26/19 - cont dex and keppra (can likely stop keppra after completion of WBRT) 2. BANG secondary to urinary obstruction - improved with Connor catheter - refractory hyperkalemia of unclear etiology, but assume this will improve as his renal function improves - Cont. Kayexalate BID for now as will also help constipation - Will need chronic indwelling Connor catheter 3. Metastatic melanoma - BRAF negative - hopeful to get to systemic immunotherapy following WBRT and dex taper - prognosis is poor and has been reviewed with patient and family 4. Left sided weakness: - r/t hemorrhage, has improved slightly since admission - PT daily - consider need for subacute rehab on d/c dependent on ambulatory ability 5. DVT prophylaxis - no chemical prophylaxis with hemorrhage Dispo: transfer out of ICU to medical floor as per orders yesterday - case discussed with d/c planning: consider RAFFI vs. home with VNS and palliative program
[2019-05-18] MEDS: Ondansetron INJ* 2 MG/ML VIAL IV PRN (10:28)
[2019-05-18] MEDS: Scopolamine 1.5 mg* PATCH TRANSDERM SCH ×2 (10:39→15:01)
[2019-05-18] MEDS: Scopolamine PATCH Remove* 1 NOTE MISC PATCH OFF SCH ×2 (10:39→15:01)
[2019-05-18] MEDS: Metoclopramide TAB* 10 MG PO PRN ×2 (15:07→21:06)
--- NOTE | 2019-05-18 18:13 | PN ---
Progress Note - Progress Note Date of Service: 05/18/19 SOAP: Subjective: []No events ON. On regular floor. Tolerates PO well. On steroids. No MCCAIN. Received WBRT Objective: [] VSS, AAOx3 KESHAWN, CN II-XII grossly intact Motor 4-5/5 all extremities. No pronator drift. Sensory grossly intact to light touch. 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 Plan: []Monitor VS, Neurochecks Plan for WBR, possible gamma knife for larger lesions in the future. Will be available if needed Appreciate ICU care. Kwame Rondon MD
[2019-05-18] MEDS: Atorvastatin* 40 MG TAB PO SCH (21:06)
[2019-05-19] MEDS: Morphine TAB Extended Release (*) 15 MG TAB.ER PO SCH ×3 (05:10→20:43)
[2019-05-19] MEDS: Dexamethasone IV* 4 MG/ML 1 ML (4 MG) IV SLOW PU SCH ×3 (05:10→20:44)
[2019-05-19] MEDS: Metoclopramide TAB* 10 MG PO PRN ×2 (05:14→14:11)
[2019-05-19 07:52] LABS: BUN/Creatinine Ratio 40.3 (8-20); Calcium 8.2 mg/dL (8.6-10.3); EGFR Non-African American 48.8 (>60)
[2019-05-19 08:07] LABS: Potassium 5.3 mmol/L (3.5-5.0)
[2019-05-19] MEDS: Polyethylene Glycol 3350* 17 GM PACKET PO SCH ×2 (08:22→20:49)
[2019-05-19] MEDS: Magnesium Hydroxide LIQ* 30 ML UDC PO SCH (08:22)
[2019-05-19] MEDS: levETIRAcetam TAB* 500 MG PO SCH ×2 (08:22→20:43)
[2019-05-19] MEDS: amLODIPine TAB* 5 MG PO SCH (08:22)
[2019-05-19] MEDS: Pantoprazole TAB * 40 MG TAB PO SCH (08:22)
[2019-05-19 08:23] LABS: ABS Lymphocytes 0.2 10^3/ul (1.0-4.8); ABS Monocytes 0.5 10^3/ul (0-0.8); ABS Neutrophils 10.4 10^3/ul (1.5-7.7); Hematocrit 45 % (42-52); Hemoglobin 15.3 g/dL (14.0-18.0); Lymphocyte % 1.9 %; Mean Corpuscular HGB Conc 34 g/dL (31-36); Mean Corpuscular Hemoglobin 34 pg (27-31); Mean Corpuscular Volume 100 fL (80-94); Mean Platelet Volume 7.1 fL (7.4-10.4); Platelet Count 122 10^3/uL (150-450); Red Blood Count 4.49 10^6 /uL (4.18-5.48); Red Cell Distribution Width 13 % (10-15); White Blood Count 11.1 10^3/uL (3.5-10.8)
[2019-05-19] MEDS: Senna TAB 8.6 mg* TAB PO SCH (08:23)
[2019-05-19] MEDS: Sodium Polystyrene ORAL.SUSP* 15 GM/60 ML BTL PO SCH ×2 (08:23→17:20)
[2019-05-19 09:39] LABS: Uric Acid 6.4 mg/dL (4.4-7.6)
--- NOTE | 2019-05-19 11:04 | PN ---
Progress Note - Progress Note Date of Service: 05/19/19 SOAP: Subjective: [Slowly improving. Up to a chair this morning. Requiring EZ stand and 2 assist for transfers right now. L leg remains weak, but maybe slightly improved. Has a tingling sensation in the leg. No new weakness. Notes L facial numbness for the last week which is unchanged. Still no BM, no abd pain. Freq waves of nausea. ] Objective: [ Vital Signs: Temp Pulse Resp BP Pulse Ox 97.5 F 65 18 128/80 97 05/19/19 07:15 05/19/19 07:15 05/19/19 08:00 05/19/19 07:15 05/19/19 07:15 Acetaminophen (Tylenol Tab*) 650 mg PO Q4H PRN PRN Reason: pain/fever Amlodipine Besylate (Norvasc Tab*) 10 mg PO DAILY [facility] Last Admin: 05/19/19 08:22 Dose: 10 mg Atorvastatin Calcium (Lipitor*) 40 mg PO BEDTIME [facility] Last Admin: 05/18/19 21:06 Dose: 40 mg Cyclobenzaprine HCl (Flexeril Tab*) 10 mg PO TID PRN PRN Reason: SPASMS Last Admin: 05/15/19 14:20 Dose: 10 mg Dexamethasone Sodium Phosphate (Decadron Iv*) 6 mg IV SLOW PU Q8HR [facility] Last Admin: 05/19/19 05:10 Dose: 6 mg Levetiracetam (Keppra Tab*) 500 mg PO BID [facility] Last Admin: 05/19/19 08:22 Dose: 500 mg Lorazepam (Ativan Tab(*)) 0.5 mg PO Q6H PRN PRN Reason: ANXIETY Last Admin: 05/18/19 16:37 Dose: 0.5 mg Magnesium Hydroxide (Milk Of Magnesia Liq*) 30 ml PO DAILY [facility] Last Admin: 05/19/19 08:22 Dose: 30 ml Metoclopramide HCl (Reglan Tab*) 5 mg PO Q6H PRN PRN Reason: DYSPEPSIA Last Admin: 05/19/19 05:14 Dose: 5 mg Morphine Sulfate (Ms Contin(*)) 15 mg PO Q8HR [facility] Last Admin: 05/19/19 05:10 Dose: 15 mg Ondansetron HCl (Zofran Inj*) 4 mg IV Q4H PRN PRN Reason: NAUSEA/VOMITING Last Admin: 05/18/19 10:28 Dose: 4 mg Oxycodone HCl (Roxycodone Tab*) 5 mg PO Q6H PRN PRN Reason: PAIN - MODERATE Pantoprazole Sodium (Protonix Tab*) 40 mg PO DAILY [facility] Last Admin: 05/19/19 08:22 Dose: 40 mg Pharmacy Profile Note (Scopolamine Patch Remove*) 1 note PATCH OFF Q72H [facility] Last Admin: 05/18/19 15:01 Dose: Not Given Polyethylene Glycol/Electrolytes (Miralax (17 Gm Dose Perfecto)) 17 gm PO 0800,2100 [facility] Last Admin: 05/19/19 08:22 Dose: 17 gm Scopolamine (Transderm-Scop 1.5 Mg Patch*) 1 patch TRANSDERM Q72H [facility] Last Admin: 05/18/19 15:01 Dose: Not Given Senna (Senokot 8.6 Mg Tab*) 1 tab PO DAILY [facility] Last Admin: 05/19/19 08:23 Dose: 1 tab Sodium Polystyrene Sulfonate (Kayexalate Oral.Roz*) 15 gm PO BID WITH MEALS [facility] Last Admin: 05/19/19 08:23 Dose: 15 gm Laboratory Results - last 24 hr 05/19/19 05/19/19 07:17 08:18 WBC 11.1 H RBC 4.49 Hgb 15.3 Hct 45 MCV 100 H MCH 34 H MCHC 34 RDW 13 Plt Count 122 L MPV 7.1 L Neut % (Auto) 93.3 Lymph % (Auto) 1.9 Teller % (Auto) 4.7 Eos % (Auto) 0.0 Baso % (Auto) 0.1 Absolute Neuts (auto) 10.4 H Absolute Lymphs (auto) 0.2 L Absolute Monos (auto) 0.5 Absolute Eos (auto) 0.0 Absolute Basos (auto) 0.0 Absolute Nucleated RBC 0.0 Nucleated RBC % 0.0 Sodium 133 L Potassium 5.3 H Chloride 99 L Carbon Dioxide 25 Anion Gap 9 BUN 60 H Creatinine 1.49 H Est GFR ( Amer) 59.0 Est GFR (Non-Af Amer) 48.8 BUN/Creatinine Ratio 40.3 H Glucose 153 H Uric Acid 6.4 Calcium 8.2 L Lactate Dehydrogenase 289 H Exam: Gen: well appearing, sitting up in a chair and surrounded by family HEENT: MMM CV: RRR, on m/r/g Resp: CTA, no w/c/r Abd: soft, nonTTP, mildly distended Ext: mild edema Neuro: RLE strength ~+4-5/5, LLE +4/5 Skin: no rashes Assessment: [Assessment: []Mr. Temple is a 54 yo male with a relatively new diagnosis of metastatic melanoma admitted earlier this month with urinary retention and intractable pain found to have leptomeningeal disease involving the conus medularis now s/p palliative RT to the [facility]. He presented to the office on 05/15/19 with increased left sided weakness and intractable nausea found to have an acute cerebral hemorrhage at a known metastatic site and recurrent urinary obstruction with BANG. Hemorrhage appears stable and is now receiving WBRT today is D3 of 10 fractions. Renal function improved with Connor catheter in place but with persistent hyperkalemia although slightly improving. Plan: []1. Cerebral hemorrhage - no plans for surgical intervention, neurosurgery input greatly appreciated - Dr Velasquez consulted with Dr Richards by phone who recommended WBRT over proceeding with planned gammaknife - WBRT x 10 fractions, will complete 05/26/19 - cont dex and keppra (can likely stop keppra after completion of WBRT) 2. BANG secondary to urinary obstruction - improved with Connor catheter - refractory hyperkalemia of unclear etiology, but assume this will improve as his renal function improves - checked LDH and uric acid in case some spontaneous TLS was contributing - these studies are essentially WNL - Cont. Kayexalate BID for now as will also help constipation - Will need chronic indwelling Connor catheter 3. Metastatic melanoma - BRAF negative - hopeful to get to systemic immunotherapy following WBRT and dex taper - prognosis is poor and has been reviewed with patient and family 4. Left sided weakness: - r/t hemorrhage, has improved slightly since admission - PT daily - pt and family are motivated to get him home over dc to [facility] 5. DVT prophylaxis - no chemical prophylaxis with hemorrhage Dispo: requires continued inpatient stay. Consider dc home over the next several days depending on improvement in functional status. will request hospital bed and VNS with PT for discharge.
[2019-05-19] MEDS: LORazepam TAB(*) 0.5 MG PO PRN (15:42)
[2019-05-19] MEDS: Atorvastatin* 40 MG TAB PO SCH (20:43)
[2019-05-19] MEDS: Ondansetron INJ* 2 MG/ML VIAL IV PRN (20:43)
[2019-05-20] MEDS: LORazepam TAB(*) 0.5 MG PO PRN (04:44)
[2019-05-20] MEDS: Morphine TAB Extended Release (*) 15 MG TAB.ER PO SCH ×3 (05:07→21:01)
[2019-05-20] MEDS: Dexamethasone IV* 4 MG/ML 1 ML (4 MG) IV SLOW PU SCH ×3 (05:08→21:02)
[2019-05-20 07:13] LABS: ABS Lymphocytes 0.2 10^3/ul (1.0-4.8); ABS Monocytes 0.6 10^3/ul (0-0.8); ABS Neutrophils 8.6 10^3/ul (1.5-7.7); Hematocrit 44 % (42-52); Hemoglobin 15.2 g/dL (14.0-18.0); Mean Corpuscular HGB Conc 35 g/dL (31-36); Mean Corpuscular Hemoglobin 35 pg (27-31); Mean Corpuscular Volume 100 fL (80-94); Mean Platelet Volume 7.4 fL (7.4-10.4); Platelet Count 112 10^3/uL (150-450); Red Blood Count 4.36 10^6 /uL (4.18-5.48); Red Cell Distribution Width 13 % (10-15); White Blood Count 9.4 10^3/uL (3.5-10.8)
[2019-05-20 07:30] LABS: Albumin 3.4 g/dL (3.2-5.2); Albumin/Globulin Ratio 1.5 (1-3); BUN/Creatinine Ratio 41.1 (8-20); Calcium 8.7 mg/dL (8.6-10.3); EGFR African American 62.9 (>60); Globulin 2.2 g/dL (2-4); Total Protein 5.6 g/dL (6.4-8.9)
--- NOTE | 2019-05-20 08:16 | PN ---
Progress Note - Progress Note Date of Service: 05/20/19 SOAP: Subjective: []He is stable today. Trying to get up, was up with assist yesterday, leg still weak. No BM in several days. Eating well. No MCCAIN and not in pain. No seizures. With brother in room. Anxious to go on with therapy. Acetaminophen (Tylenol Tab*) 650 mg PO Q4H PRN PRN Reason: pain/fever Amlodipine Besylate (Norvasc Tab*) 10 mg PO DAILY [facility] Last Admin: 05/19/19 08:22 Dose: 10 mg Atorvastatin Calcium (Lipitor*) 40 mg PO BEDTIME [facility] Last Admin: 05/19/19 20:43 Dose: 40 mg Cyclobenzaprine HCl (Flexeril Tab*) 10 mg PO TID PRN PRN Reason: SPASMS Last Admin: 05/15/19 14:20 Dose: 10 mg Dexamethasone Sodium Phosphate (Decadron Iv*) 6 mg IV SLOW PU Q8HR [facility] Last Admin: 05/20/19 05:08 Dose: 6 mg Levetiracetam (Keppra Tab*) 500 mg PO BID [facility] Last Admin: 05/19/19 20:43 Dose: 500 mg Lorazepam (Ativan Tab(*)) 0.5 mg PO Q6H PRN PRN Reason: ANXIETY Last Admin: 05/20/19 04:44 Dose: 0.5 mg Magnesium Hydroxide (Milk Of Magnesia Liq*) 30 ml PO DAILY [facility] Last Admin: 05/19/19 08:22 Dose: 30 ml Metoclopramide HCl (Reglan Tab*) 5 mg PO Q6H PRN PRN Reason: DYSPEPSIA Last Admin: 05/19/19 14:11 Dose: 5 mg Morphine Sulfate (Ms Contin(*)) 15 mg PO Q8HR [facility] Last Admin: 05/20/19 05:07 Dose: 15 mg Ondansetron HCl (Zofran Inj*) 4 mg IV Q4H PRN PRN Reason: NAUSEA/VOMITING Last Admin: 05/19/19 20:43 Dose: 4 mg Oxycodone HCl (Roxycodone Tab*) 5 mg PO Q6H PRN PRN Reason: PAIN - MODERATE Pantoprazole Sodium (Protonix Tab*) 40 mg PO DAILY [facility] Last Admin: 05/19/19 08:22 Dose: 40 mg Pharmacy Profile Note (Scopolamine Patch Remove*) 1 note PATCH OFF Q72H [facility] Last Admin: 05/18/19 15:01 Dose: Not Given Polyethylene Glycol/Electrolytes (Miralax (17 Gm Dose Perfecto)) 17 gm PO 0800,2100 [facility] Last Admin: 05/19/19 20:49 Dose: 17 gm Scopolamine (Transderm-Scop 1.5 Mg Patch*) 1 patch TRANSDERM Q72H [facility] Last Admin: 05/18/19 15:01 Dose: Not Given Senna (Senokot 8.6 Mg Tab*) 1 tab PO DAILY [facility] Last Admin: 05/19/19 08:23 Dose: 1 tab Sodium Polystyrene Sulfonate (Kayexalate Oral.Roz*) 15 gm PO BID WITH MEALS [facility] Last Admin: 05/19/19 17:20 Dose: 15 gm Objective: [] Vital Signs Temp Pulse Resp BP Pulse Ox 97.8 F 59 16 143/84 97 05/20/19 03:15 05/20/19 03:15 05/20/19 05:07 05/20/19 03:15 05/20/19 03:15 Exam: Gen: well appearing, in bed. HEENT: MMM CV: RRR, on m/r/g Resp: CTA, no w/c/r Abd: soft, nonTTP, mildly distended, obese Ext: mild edema Neuro: RLE strength ~+4-5/5, LLE +4/5, can perform leg raise. [Assessment: []Mr. Temple is a 54 yo male with a relatively new diagnosis of metastatic melanoma admitted earlier this month with urinary retention and intractable pain found to have leptomeningeal disease involving the conus medularis now s/p palliative RT to the [facility]. He presented to the office on 05/15/19 with increased left sided weakness and intractable nausea found to have an acute cerebral hemorrhage at a known metastatic site and recurrent urinary obstruction with BANG. Hemorrhage appears stable and is now receiving WBRT yesterday D3 of 10 fractions. Renal function improved with Connor catheter in place. Plan: []1. Cerebral hemorrhage - no plans for surgical intervention - WBRT x 10 fractions, will complete 05/26/19 - cont dex and keppra (can likely stop keppra after completion of WBRT) 2. BANG secondary to urinary obstruction - improved with Connor catheter - Cont. Kayexalate BID for now as will also help constipation. Once K < 4.5 change to Lactulose - Will need chronic indwelling Connor catheter 3. Metastatic melanoma - BRAF negative - hopeful to get to systemic immunotherapy following WBRT and dex taper - prognosis is poor and has been reviewed with patient and family 4. Left sided weakness: - r/t hemorrhage, has improved slightly since admission - PT daily - pt and family are motivated to get him home over dc to [facility] 5. DVT prophylaxis - no chemical prophylaxis with hemorrhage Dispo: requires continued inpatient stay. Consider dc home over the next several days depending on improvement in functional status. will request hospital bed and VNS with PT for discharge.
[2019-05-20] MEDS: Polyethylene Glycol 3350* 17 GM PACKET PO SCH ×2 (09:29→21:03)
[2019-05-20] MEDS: Sodium Polystyrene ORAL.SUSP* 15 GM/60 ML BTL PO SCH ×2 (09:29→16:43)
[2019-05-20] MEDS: Pantoprazole TAB * 40 MG TAB PO SCH (09:30)
[2019-05-20] MEDS: amLODIPine TAB* 5 MG PO SCH (09:30)
[2019-05-20] MEDS: Senna TAB 8.6 mg* TAB PO SCH (09:30)
[2019-05-20] MEDS: Magnesium Hydroxide LIQ* 30 ML UDC PO SCH (09:30)
[2019-05-20] MEDS: levETIRAcetam TAB* 500 MG PO SCH ×2 (09:30→21:02)
[2019-05-20] MEDS: Metoclopramide TAB* 10 MG PO PRN (16:46)
[2019-05-20] MEDS: Atorvastatin* 40 MG TAB PO SCH (21:01)
[2019-05-20] MEDS: Ondansetron INJ* 2 MG/ML VIAL IV PRN (21:02)
[2019-05-21] MEDS: Morphine TAB Extended Release (*) 15 MG TAB.ER PO SCH ×3 (05:11→21:37)
[2019-05-21] MEDS: Dexamethasone IV* 4 MG/ML 1 ML (4 MG) IV SLOW PU SCH ×4 (05:13→21:37)
[2019-05-21] MEDS: LORazepam TAB(*) 0.5 MG PO PRN ×2 (05:24→21:37)
[2019-05-21 07:03] LABS: Hematocrit 43 % (42-52); Hemoglobin 14.8 g/dL (14.0-18.0); Mean Corpuscular HGB Conc 35 g/dL (31-36); Mean Corpuscular Hemoglobin 35 pg (27-31); Mean Corpuscular Volume 99 fL (80-94); Red Blood Count 4.29 10^6 /uL (4.18-5.48); Red Cell Distribution Width 13 % (10-15); White Blood Count 9.1 10^3/uL (3.5-10.8)
[2019-05-21 07:14] LABS: Albumin 3.4 g/dL (3.2-5.2); Albumin/Globulin Ratio 1.5 (1-3); BUN/Creatinine Ratio 45.7 (8-20); Calcium 8.6 mg/dL (8.6-10.3); EGFR African American 69.7 (>60); EGFR Non-African American 57.6 (>60); Globulin 2.2 g/dL (2-4); Magnesium 2.3 mg/dL (1.9-2.7); Potassium 4.9 mmol/L (3.5-5.0); Total Bilirubin 0.9 mg/dL (0.2-1.0); Total Protein 5.6 g/dL (6.4-8.9)
[2019-05-21 07:35] LABS: ABS Lymphocytes 0.2 10^3/ul (1.0-4.8); ABS Monocytes 0.5 10^3/ul (0-0.8); ABS Neutrophils 8.4 10^3/ul (1.5-7.7); Lymphocyte % 2.3 %; Mean Platelet Volume 7.2 fL (7.4-10.4); Platelet Count 93 10^3/uL (150-450)
[2019-05-21] MEDS: Sodium Polystyrene ORAL.SUSP* 15 GM/60 ML BTL PO SCH ×2 (09:04→17:36)
[2019-05-21] MEDS: Polyethylene Glycol 3350* 17 GM PACKET PO SCH ×2 (09:04→21:17)
[2019-05-21] MEDS: levETIRAcetam TAB* 500 MG PO SCH ×2 (09:04→21:36)
[2019-05-21] MEDS: Magnesium Hydroxide LIQ* 30 ML UDC PO SCH (09:04)
[2019-05-21] MEDS: Pantoprazole TAB * 40 MG TAB PO SCH (09:04)
[2019-05-21] MEDS: amLODIPine TAB* 5 MG PO SCH (09:05)
[2019-05-21] MEDS: Senna TAB 8.6 mg* TAB PO SCH (09:05)
[2019-05-21] MEDS ORDERED: Acetaminophen TAB* 325 MG PO PRN (09:09)
--- NOTE | 2019-05-21 09:26 | PN ---
Subjective Date of Service: 05/21/19 Interval History: Pt is feeling well. He states he has had a good morning. No headaches at this time. He is really wanting "regular" food and to be off the pureed diet. He has plans to get up to shower today and go for a wheelchair ride later today. He has not had a significant BM yet. Objective Active Medications: Acetaminophen (Tylenol Tab*) 650 mg PO Q4H PRN PRN Reason: mild pain/fever Amlodipine Besylate (Norvasc Tab*) 10 mg PO DAILY [facility] Last Admin: 05/21/19 09:05 Dose: 10 mg Atorvastatin Calcium (Lipitor*) 40 mg PO BEDTIME [facility] Last Admin: 05/20/19 21:01 Dose: 40 mg Cyclobenzaprine HCl (Flexeril Tab*) 10 mg PO TID PRN PRN Reason: SPASMS Last Admin: 05/15/19 14:20 Dose: 10 mg Dexamethasone Sodium Phosphate (Decadron Iv*) 6 mg IV SLOW PU Q8HR [facility] Last Admin: 05/21/19 05:57 Dose: 6 mg Levetiracetam (Keppra Tab*) 500 mg PO BID [facility] Last Admin: 05/21/19 09:04 Dose: 500 mg Lorazepam (Ativan Tab(*)) 0.5 mg PO Q6H PRN PRN Reason: ANXIETY Last Admin: 05/21/19 05:24 Dose: 0.5 mg Magnesium Hydroxide (Milk Of Magnrock Liq*) 30 ml PO DAILY [facility] Last Admin: 05/21/19 09:04 Dose: 30 ml Metoclopramide HCl (Reglan Tab*) 5 mg PO Q6H PRN PRN Reason: DYSPEPSIA Last Admin: 05/20/19 16:46 Dose: 5 mg Morphine Sulfate (Ms Contin(*)) 15 mg PO Q8HR [facility] Last Admin: 05/21/19 05:11 Dose: 15 mg Ondansetron HCl (Zofran Inj*) 4 mg IV Q4H PRN PRN Reason: NAUSEA/VOMITING Last Admin: 05/20/19 21:02 Dose: 4 mg Oxycodone HCl (Roxycodone Tab*) 5 mg PO Q6H PRN PRN Reason: PAIN - MODERATE Pantoprazole Sodium (Protonix Tab*) 40 mg PO DAILY [facility] Last Admin: 05/21/19 09:04 Dose: 40 mg Pharmacy Profile Note (Scopolamine Patch Remove*) 1 note PATCH OFF Q72H [facility] Last Admin: 05/18/19 15:01 Dose: Not Given Polyethylene Glycol/Electrolytes (Miralax (17 Gm Dose Perfecto)) 17 gm PO 0800,2100 [facility] Last Admin: 05/21/19 09:04 Dose: 17 gm Scopolamine (Transderm-Scop 1.5 Mg Patch*) 1 patch TRANSDERM Q72H [facility] Last Admin: 05/18/19 15:01 Dose: Not Given Senna (Senokot 8.6 Mg Tab*) 1 tab PO DAILY [facility] Last Admin: 05/21/19 09:05 Dose: 1 tab Sodium Polystyrene Sulfonate (Kayexalate Oral.Roz*) 15 gm PO BID WITH MEALS [facility] Last Admin: 05/21/19 09:04 Dose: 15 gm Vital Signs - 8 hr 05/21/19 05/21/19 05/21/19 03:15 05:11 05:24 Temperature 97.5 F Pulse Rate 65 Respiratory 16 16 16 Rate Blood Pressure 130/82 (mmHg) O2 Sat by Pulse 96 Oximetry 05/21/19 05/21/19 07:53 09:06 Temperature 97.8 F Pulse Rate 69 Respiratory 18 18 Rate Blood Pressure 142/83 (mmHg) O2 Sat by Pulse 96 Oximetry Oxygen Devices in Use Now: None Appearance: Middle aged male sitting up in bed, NAD Eyes: No Scleral Icterus Ears/Nose/Mouth/Throat: Mucous Membranes Moist Respiratory: Symmetrical Chest Expansion and Respiratory Effort, Clear to Auscultation - anteriorly Cardiovascular: NL Sounds; No Murmurs; No JVD, RRR, - - 1+ LE edema Abdominal: - - BS+ soft, moderately distended, mildly tender to palpation throughout, tympanic to percussion Extremities: No Clubbing, Cyanosis Skin: No Nodules or Sclerosis Neurological: Alert and Oriented x 3 Result Diagrams: 05/21/19 06:35 05/21/19 06:35 Microbiology and Other Data: Microbiology 05/15/19 14:46 Nasal Screen MRSA (PCR) - Final Nasal Mrsa Not Detected Assess/Plan/Problems-Billing Mr Temple is a 54 yo M with metastatic melanoma who presented to the oncology office with c/o increased weakness and was found to have a cerebral hemorrhage at the site of metastatic disease and urinary retention with BANG. - Patient Problems (1) Metastatic melanoma Current Visit: Yes Status: Acute Comment: Pt is receiving WBRT to brain met. He is to receive 10 fractions. Continue keppra and dexamethasone at current dose. Continue PT/OT. Speech is following. Will not advance the patient' s diet at this time. He needs to be reassessed by speech. (2) Thrombocytopenia Current Visit: Yes Status: Acute Code(s): D69.6 - THROMBOCYTOPENIA, UNSPECIFIED SNOMED Code(s): 543629652 Comment: Unclear what is driving his thrombocytopenia but he has had >50% drop since admission. Follow up CBC tomorrow. (3) BANG (acute kidney injury) Current Visit: Yes Status: Acute Code(s): N17.9 - ACUTE KIDNEY FAILURE, UNSPECIFIED SNOMED Code(s): 47906235 Comment: Resolved. Appears creatinine is back to baseline. (4) Urinary retention Current Visit: Yes Status: Acute Code(s): R33.9 - RETENTION OF URINE, UNSPECIFIED SNOMED Code(s): 765220816 Comment: Connor catheter is in place. (5) Hyperkalemia Current Visit: Yes Status: Acute Code(s): E87.5 - HYPERKALEMIA SNOMED Code (s): 12474603 Comment: Improving on kayexalate. Monitor. (6) HTN (hypertension) Current Visit: Yes Status: Acute Code(s): I10 - ESSENTIAL (PRIMARY) HYPERTENSION SNOMED Code(s): 50581849 Comment: BP is under acceptable control on amlodipine-off lisinopril secondary to hyperkalemia/BANG. (7) HLD (hyperlipidemia) Current Visit: Yes Status: Acute Code(s): E78.5 - HYPERLIPIDEMIA, UNSPECIFIED SNOMED Code(s): 66777092 Comment: Continue lipitor. (8) DVT prophylaxis Current Visit: Yes Status: Acute Code(s): Z29.9 - ENCOUNTER FOR PROPHYLACTIC MEASURES, UNSPECIFIED SNOMED Code(s): 699434625 Comment: SCDs, no chemical prophylaxis secondary to hemorrhage (9) DNR (do not resuscitate) Current Visit: Yes Status: Acute
[2019-05-21] MEDS: Scopolamine 1.5 mg* PATCH TRANSDERM SCH (13:23)
[2019-05-21] MEDS: Scopolamine PATCH Remove* 1 NOTE MISC PATCH OFF SCH (13:27)
[2019-05-21] MEDS: Atorvastatin* 40 MG TAB PO SCH (21:36)
[2019-05-21] MEDS: oxyCODONE TAB* 5 MG TAB PO PRN (21:36)
[2019-05-21] MEDS: Cyclobenzaprine TAB* 10 MG PO PRN (21:36)
[2019-05-22] MEDS: LORazepam TAB(*) 0.5 MG PO PRN ×3 (04:21→21:29)
[2019-05-22] MEDS: Morphine TAB Extended Release (*) 15 MG TAB.ER PO SCH ×3 (05:45→21:28)
[2019-05-22] MEDS: Dexamethasone IV* 4 MG/ML 1 ML (4 MG) IV SLOW PU SCH ×3 (05:45→21:29)
[2019-05-22] MEDS: oxyCODONE TAB* 5 MG TAB PO PRN ×2 (05:51→17:45)
[2019-05-22 07:28] LABS: ABS Lymphocytes 0.1 10^3/ul (1.0-4.8); ABS Monocytes 0.4 10^3/ul (0-0.8); ABS Neutrophils 9.6 10^3/ul (1.5-7.7); Hematocrit 45 % (42-52); Hemoglobin 15.3 g/dL (14.0-18.0); Lymphocyte % 1.2 %; Mean Corpuscular HGB Conc 34 g/dL (31-36); Mean Corpuscular Hemoglobin 34 pg (27-31); Mean Corpuscular Volume 100 fL (80-94); Mean Platelet Volume 7.2 fL (7.4-10.4); Platelet Count 89 10^3/uL (150-450); Red Blood Count 4.49 10^6 /uL (4.18-5.48); Red Cell Distribution Width 13 % (10-15); White Blood Count 10.1 10^3/uL (3.5-10.8)
[2019-05-22 07:43] LABS: BUN/Creatinine Ratio 43.8 (8-20); Calcium 8.7 mg/dL (8.6-10.3); EGFR African American 75.1 (>60); Potassium 4.5 mmol/L (3.5-5.0)
--- NOTE | 2019-05-22 08:29 | PN ---
Progress Note - Progress Note Date of Service: 05/22/19 SOAP: Subjective: []Ponce tells me he feels OK, denies pain. Feels very fatigued and says, "It was just a long weekend." Remains very weak and requiring [facility] for transfers. Refused PT the last two days. Wants to go home however and able to state understanding of need to be sure he his safe for d/c home which requires the ability to transfer. 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 Connor in place, dark yellow urine. Has been having BMs, but can not feel them. Medications: Acetaminophen (Tylenol Tab*) 650 mg PO Q4H PRN PRN Reason: mild pain/fever Amlodipine Besylate (Norvasc Tab*) 10 mg PO DAILY [facility] Last Admin: 05/21/19 09:05 Dose: 10 mg Atorvastatin Calcium (Lipitor*) 40 mg PO BEDTIME [facility] Last Admin: 05/21/19 21:36 Dose: 40 mg Cyclobenzaprine HCl (Flexeril Tab*) 10 mg PO TID PRN PRN Reason: SPASMS Last Admin: 05/21/19 21:36 Dose: 10 mg Dexamethasone Sodium Phosphate (Decadron Iv*) 6 mg IV SLOW PU Q8HR [facility] Last Admin: 05/22/19 05:45 Dose: 6 mg Levetiracetam (Keppra Tab*) 500 mg PO BID [facility] Last Admin: 05/21/19 21:36 Dose: 500 mg Lorazepam (Ativan Tab(*)) 0.5 mg PO Q6H PRN PRN Reason: ANXIETY Last Admin: 05/22/19 04:21 Dose: 0.5 mg Magnesium Hydroxide (Milk Of Magnesia Liq*) 30 ml PO DAILY [facility] Last Admin: 05/21/19 09:04 Dose: 30 ml Metoclopramide HCl (Reglan Tab*) 5 mg PO Q6H PRN PRN Reason: DYSPEPSIA Last Admin: 05/20/19 16:46 Dose: 5 mg Morphine Sulfate (Ms Contin(*)) 15 mg PO Q8HR [facility] Last Admin: 05/22/19 05:45 Dose: 15 mg Ondansetron HCl (Zofran Inj*) 4 mg IV Q4H PRN PRN Reason: NAUSEA/VOMITING Last Admin: 05/20/19 21:02 Dose: 4 mg Oxycodone HCl (Roxycodone Tab*) 5 mg PO Q6H PRN PRN Reason: PAIN - MODERATE Last Admin: 05/22/19 05:51 Dose: 5 mg Pantoprazole Sodium (Protonix Tab*) 40 mg PO DAILY [facility] Last Admin: 05/21/19 09:04 Dose: 40 mg Pharmacy Profile Note (Scopolamine Patch Remove*) 1 note PATCH OFF Q72H [facility] Last Admin: 05/21/19 13:27 Dose: Not Given Polyethylene Glycol/Electrolytes (Miralax (17 Gm Dose Perfecto)) 17 gm PO 0800,2100 [facility] Last Admin: 05/21/19 21:17 Dose: Not Given Scopolamine (Transderm-Scop 1.5 Mg Patch*) 1 patch TRANSDERM Q72H [facility] Last Admin: 05/21/19 13:23 Dose: 1 patch Senna (Senokot 8.6 Mg Tab*) 1 tab PO DAILY [facility] Last Admin: 05/21/19 09:05 Dose: 1 tab Sodium Polystyrene Sulfonate (Kayexalate Oral.Roz*) 15 gm PO BID WITH MEALS [facility] Last Admin: 05/21/19 17:36 Dose: 15 gm Objective: [] Vital Signs Temp Pulse Resp BP Pulse Ox 97.5 F 59 20 139/80 95 05/22/19 07:28 05/22/19 07:28 05/22/19 08:27 05/22/19 07:28 05/22/19 07:28 A&O, notably sleepy. HRR, S1S2 LS clear +BS, round and softly distended, non-tender Laboratory Results - last 24 hr 05/22/19 05/22/19 07:15 07:15 WBC 10.1 RBC 4.49 Hgb 15.3 Hct 45 MCV 100 H MCH 34 H MCHC 34 RDW 13 Plt Count 89 L MPV 7.2 L Neut % (Auto) 94.7 Lymph % (Auto) 1.2 Ogle % (Auto) 4.0 Eos % (Auto) 0.0 Baso % (Auto) 0.1 Absolute Neuts (auto) 9.6 H Absolute Lymphs (auto) 0.1 L Absolute Monos (auto) 0.4 Absolute Eos (auto) 0.0 Absolute Basos (auto) 0.0 Absolute Nucleated RBC 0.0 Nucleated RBC % 0.0 Sodium 135 Potassium 4.5 Chloride 98 L Carbon Dioxide 31 Anion Gap 6 BUN 53 H Creatinine 1.21 H Est GFR ( Amer) 75.1 Est GFR (Non-Af Amer) 62.0 BUN/Creatinine Ratio 43.8 H Glucose 150 H Calcium 8.7 Assessment: []Mr. Temple is a 54 yo male with a relatively new diagnosis of metastatic melanoma admitted earlier this month with urinary retention and intractable pain found to have leptomeningeal disease involving the conus medularis now s/p palliative RT to the [facility]. He presented to the office on 05/15/19 with increased left sided weakness and intractable nausea found to have an acute cerebral hemorrhage at a known metastatic site and recurrent urinary obstruction with BANG. Hemorrhage appears stable and is now receiving WBRT today is D6 of 10 fractions. Renal function improved with Connor catheter in place but with persistent hyperkalemia now improved. He has an acute drop in his platelets, likely in the setting of new keppra use. He has not had any seizures and therefore we will stop this today. Plan: []1. Cerebral hemorrhage - no plans for surgical intervention, neurosurgery input greatly appreciated - Dr Velasquez consulted with Dr Richards by phone who recommended WBRT over proceeding with planned gammaknife - WBRT x 10 fractions, will complete 05/26/19 - stop Keppra d/t new thrombocytopenia - cont. dex., will need to try a rather rapid taper d/t hopes of starting immunotherapy in near future 2. BANG secondary to urinary obstruction - improved with Connor catheter - K+ normalized, Cont. Kayexalate but change to daily, cont. to follow daily labs - Will need chronic indwelling Connor catheter 3. Metastatic melanoma - BRAF negative - hopeful to get to systemic immunotherapy following WBRT and dex taper - prognosis is poor and has been reviewed with patient and family 4. Left sided weakness: - r/t hemorrhage, has improved slightly since admission - PT daily - pt and family are motivated to get him home over dc to [facility] however I am concerned this is not realistic in terms of the amount of assistance he requires 5. DVT prophylaxis - no chemical prophylaxis with hemorrhage Dispo: requires continued inpatient stay as he can not transfer safely with family at this time, I feel he will benefit from [facility] and have suggested this be discussed now. Either way he should be stable from a medical standpoint for d/ c 05/26/19 after RT.
[2019-05-22] MEDS: Polyethylene Glycol 3350* 17 GM PACKET PO SCH ×2 (08:55→21:30)
[2019-05-22] MEDS: Sodium Polystyrene ORAL.SUSP* 15 GM/60 ML BTL PO SCH (10:00)
[2019-05-22] MEDS: Senna TAB 8.6 mg* TAB PO SCH (10:08)
[2019-05-22] MEDS: amLODIPine TAB* 5 MG PO SCH (10:08)
[2019-05-22] MEDS: Pantoprazole TAB * 40 MG TAB PO SCH (10:08)
[2019-05-22] MEDS: Magnesium Hydroxide LIQ* 30 ML UDC PO SCH (10:09)
[2019-05-22] MEDS: Atorvastatin* 40 MG TAB PO SCH (21:29)
[2019-05-22] MEDS: Cyclobenzaprine TAB* 10 MG PO PRN (21:29)
[2019-05-22] MEDS: Ondansetron INJ* 2 MG/ML VIAL IV PRN (21:37)
[2019-05-23] MEDS: oxyCODONE TAB* 5 MG TAB PO PRN (00:36)
[2019-05-23] MEDS: LORazepam TAB(*) 0.5 MG PO PRN ×2 (04:00→20:04)
[2019-05-23] MEDS: Morphine TAB Extended Release (*) 15 MG TAB.ER PO SCH ×3 (05:26→20:05)
[2019-05-23] MEDS: Dexamethasone IV* 4 MG/ML 1 ML (4 MG) IV SLOW PU SCH ×3 (05:26→20:07)
[2019-05-23 06:35] LABS: ABS Lymphocytes 0.2 10^3/ul (1.0-4.8); ABS Monocytes 0.5 10^3/ul (0-0.8); ABS Neutrophils 10.6 10^3/ul (1.5-7.7); Hematocrit 44 % (42-52); Hemoglobin 14.7 g/dL (14.0-18.0); Lymphocyte % 1.6 %; Mean Corpuscular HGB Conc 34 g/dL (31-36); Mean Corpuscular Hemoglobin 33 pg (27-31); Mean Corpuscular Volume 99 fL (80-94); Mean Platelet Volume 7.2 fL (7.4-10.4); Platelet Count 80 10^3/uL (150-450); Red Blood Count 4.41 10^6 /uL (4.18-5.48); Red Cell Distribution Width 13 % (10-15); White Blood Count 11.3 10^3/uL (3.5-10.8)
[2019-05-23 06:51] LABS: Albumin 3.4 g/dL (3.2-5.2); Albumin/Globulin Ratio 1.5 (1-3); BUN/Creatinine Ratio 39.3 (8-20); Calcium 8.6 mg/dL (8.6-10.3); EGFR Non-African American 64.5 (>60); Globulin 2.2 g/dL (2-4); Potassium 4.6 mmol/L (3.5-5.0); Total Bilirubin 0.9 mg/dL (0.2-1.0); Total Protein 5.6 g/dL (6.4-8.9)
[2019-05-23] MEDS: Polyethylene Glycol 3350* 17 GM PACKET PO SCH ×2 (08:59→20:06)
[2019-05-23] MEDS: Pantoprazole TAB * 40 MG TAB PO SCH (08:59)
[2019-05-23] MEDS: amLODIPine TAB* 5 MG PO SCH (08:59)
[2019-05-23] MEDS: Senna TAB 8.6 mg* TAB PO SCH (08:59)
[2019-05-23] MEDS: Magnesium Hydroxide LIQ* 30 ML UDC PO SCH (08:59)
[2019-05-23] MEDS ORDERED: Sodium Polystyrene ORAL.SUSP* 15 GM/60 ML BTL PO SCH (09:00)
--- NOTE | 2019-05-23 10:15 | PN ---
Progress Note - Progress Note Date of Service: 05/23/19 SOAP: Subjective: []Feels good this AM. Denies concerns. Ponce is doing his ankle pumps. Spoke with who was worried about MCCAIN last night, though improved with pain meds. Medications: Acetaminophen (Tylenol Tab*) 650 mg PO Q4H PRN PRN Reason: mild pain/fever Amlodipine Besylate (Norvasc Tab*) 10 mg PO DAILY [facility] Last Admin: 05/23/19 08:59 Dose: 10 mg Atorvastatin Calcium (Lipitor*) 40 mg PO BEDTIME [facility] Last Admin: 05/22/19 21:29 Dose: 40 mg Cyclobenzaprine HCl (Flexeril Tab*) 10 mg PO TID PRN PRN Reason: SPASMS Last Admin: 05/22/19 21:29 Dose: 10 mg Dexamethasone Sodium Phosphate (Decadron Iv*) 6 mg IV SLOW PU Q8HR [facility] Last Admin: 05/23/19 05:26 Dose: 6 mg Lorazepam (Ativan Tab(*)) 0.5 mg PO Q6H PRN PRN Reason: ANXIETY Last Admin: 05/23/19 04:00 Dose: 0.5 mg Magnesium Hydroxide (Milk Of Magnesia Liq*) 30 ml PO DAILY [facility] Last Admin: 05/23/19 08:59 Dose: 30 ml Metoclopramide HCl (Reglan Tab*) 5 mg PO Q6H PRN PRN Reason: DYSPEPSIA Last Admin: 05/20/19 16:46 Dose: 5 mg Morphine Sulfate (Ms Contin(*)) 15 mg PO Q8HR [facility] Last Admin: 05/23/19 05:26 Dose: 15 mg Ondansetron HCl (Zofran Inj*) 4 mg IV Q4H PRN PRN Reason: NAUSEA/VOMITING Last Admin: 05/22/19 21:37 Dose: 4 mg Oxycodone HCl (Roxycodone Tab*) 5 mg PO Q6H PRN PRN Reason: PAIN - MODERATE Last Admin: 05/23/19 00:36 Dose: 5 mg Pantoprazole Sodium (Protonix Tab*) 40 mg PO DAILY [facility] Last Admin: 05/23/19 08:59 Dose: 40 mg Pharmacy Profile Note (Scopolamine Patch Remove*) 1 note PATCH OFF Q72H [facility] Last Admin: 05/21/19 13:27 Dose: Not Given Polyethylene Glycol/Electrolytes (Miralax (17 Gm Dose Perfecto)) 17 gm PO 0800,2100 [facility] Last Admin: 05/23/19 08:59 Dose: 17 gm Scopolamine (Transderm-Scop 1.5 Mg Patch*) 1 patch TRANSDERM Q72H [facility] Last Admin: 05/21/19 13:23 Dose: 1 patch Senna (Senokot 8.6 Mg Tab*) 1 tab PO DAILY [facility] Last Admin: 05/23/19 08:59 Dose: 1 tab Objective: [] Vital Signs Temp Pulse Resp BP Pulse Ox 97.4 F 55 20 153/84 95 05/23/19 07:18 05/23/19 07:18 05/23/19 08:23 05/23/19 07:18 05/23/19 07:18 Alert and oriented, though notably forgetful and sleepy HRR, S1S2 LS clear +BS, abd. soft distended Laboratory Results - last 24 hr 05/21/19 05/23/19 05/23/19 06:35 06:07 06:07 WBC 11.3 H RBC 4.41 Hgb 14.7 Hct 44 MCV 99 H MCH 33 H MCHC 34 RDW 13 Plt Count 80 L MPV 7.2 L Neut % (Auto) 94.2 Lymph % (Auto) 1.6 [place] % (Auto) 4.1 Eos % (Auto) 0.0 Baso % (Auto) 0.1 Absolute Neuts (auto) 10.6 H Absolute Lymphs (auto) 0.2 L Absolute Monos (auto) 0.5 Absolute Eos (auto) 0.0 Absolute Basos (auto) 0.0 Absolute Nucleated RBC 0.0 Nucleated RBC % 0.0 Hem Pathologist Commnt Sodium 135 Potassium 4.6 Chloride 97 L Carbon Dioxide 30 Anion Gap 8 BUN 46 H Creatinine 1.17 Est GFR ( Amer) 78.0 Est GFR (Non-Af Amer) 64.5 BUN/Creatinine Ratio 39.3 H Glucose 145 H Calcium 8.6 Total Bilirubin 0.90 AST 15 ALT 34 Alkaline Phosphatase 45 Total Protein 5.6 L Albumin 3.4 Globulin 2.2 Albumin/Globulin Ratio 1.5 Assessment: []Mr. Temple is a 54 yo male with a relatively new diagnosis of metastatic melanoma admitted earlier this month with urinary retention and intractable pain found to have leptomeningeal disease involving the conus medularis now s/p palliative RT to the [facility]. He presented to the office on 05/15/19 with increased left sided weakness and intractable nausea found to have an acute cerebral hemorrhage at a known metastatic site and recurrent urinary obstruction with BANG. Hemorrhage appears stable and is now receiving WBRT. Today is Day 5 of planned 10. His renal function and potassium have both improved and he is clinically stable for discharge, but he is not able to go home safely. Reviewed Mr. Temple's condition over phone at length with his , Maryjo. She has a good understanding of the severity of his disease and is able to state understanding of current plan: complete WBRT, plan acute vs. subacute rehab, and trial of rapid steroid taper in order to start immunotherapy. Additionally she recognizes the later may not be possible and if he is not able to get to immunotherapy he is a good candidate for hospice. She is interested in a palliative consult to discuss hospice vs. palliative care and assist with goal setting, she will attempt to have one of his brothers present for this as well. Plan: []1. Cerebral hemorrhage 2/2 SOOT BLOWER mets from melanoma - WBRT x 10 fractions, will complete 05/30/19 - no seizure activity and developed new thrombocytopenia on Keppra therefore held as of yesterday - cont. dex., will need to try a rather rapid taper after WBRT d/t hopes of starting immunotherapy in near future 2. BANG secondary to urinary obstruction: resolved with sharma 3. Metastatic melanoma - BRAF negative - hopeful to get to systemic immunotherapy following WBRT and dex taper - prognosis is poor and has been reviewed with patient and family - palliative consult as above 4. Left sided weakness: - PMRU consult, though I suspect he can not tolerate the amount of PT they recommend - if not a candidate for PMRU will plan to transfer to [facility] after WBRT 5. DVT prophylaxis - no chemical prophylaxis with hemorrhage
--- NOTE | 2019-05-23 16:10 | PN ---
Progress Note - Progress Note Date of Service: 05/23/19 Note: Arranged to meet with pt tomorrow(05/23) at 5 along with some other family.
[2019-05-23] MEDS: Atorvastatin* 40 MG TAB PO SCH (20:05)
[2019-05-24] MEDS: Morphine TAB Extended Release (*) 15 MG TAB.ER PO SCH ×3 (05:31→21:57)
[2019-05-24] MEDS: Dexamethasone IV* 4 MG/ML 1 ML (4 MG) IV SLOW PU SCH ×3 (05:32→21:59)
[2019-05-24] MEDS: LORazepam TAB(*) 0.5 MG PO PRN ×2 (05:34→20:14)
[2019-05-24 06:59] LABS: ABS Lymphocytes 0.2 10^3/ul (1.0-4.8); ABS Monocytes 0.4 10^3/ul (0-0.8); ABS Neutrophils 8.6 10^3/ul (1.5-7.7); Hematocrit 43 % (42-52); Hemoglobin 14.9 g/dL (14.0-18.0); Lymphocyte % 1.8 %; Mean Corpuscular HGB Conc 34 g/dL (31-36); Mean Corpuscular Hemoglobin 34 pg (27-31); Mean Corpuscular Volume 99 fL (80-94); Mean Platelet Volume 7.3 fL (7.4-10.4); Platelet Count 75 10^3/uL (150-450); Red Blood Count 4.35 10^6 /uL (4.18-5.48); Red Cell Distribution Width 13 % (10-15); White Blood Count 9.2 10^3/uL (3.5-10.8)
[2019-05-24] MEDS: Polyethylene Glycol 3350* 17 GM PACKET PO SCH ×2 (08:38→20:08)
[2019-05-24] MEDS: Senna TAB 8.6 mg* TAB PO SCH (08:38)
[2019-05-24] MEDS: amLODIPine TAB* 5 MG PO SCH (08:38)
[2019-05-24] MEDS: Pantoprazole TAB * 40 MG TAB PO SCH (08:38)
[2019-05-24] MEDS: Magnesium Hydroxide LIQ* 30 ML UDC PO SCH (08:39)
--- NOTE | 2019-05-24 10:28 | PN ---
Progress Note - Progress Note Date of Service: 05/24/19 SOAP: Subjective: []Feels good today, excited to go take a shower with OT. Still can't feel BMs. Still gets anxious about things. Denies pain. No HAs. Doing bed exercises and feels left leg is getting stronger. Medications: Acetaminophen (Tylenol Tab*) 650 mg PO Q4H PRN PRN Reason: mild pain/fever Amlodipine Besylate (Norvasc Tab*) 10 mg PO DAILY [facility] Last Admin: 05/24/19 08:38 Dose: 10 mg Cyclobenzaprine HCl (Flexeril Tab*) 10 mg PO TID PRN PRN Reason: SPASMS Last Admin: 05/22/19 21:29 Dose: 10 mg Dexamethasone Sodium Phosphate (Decadron Iv*) 6 mg IV SLOW PU Q8HR [facility] Last Admin: 05/24/19 05:32 Dose: 6 mg Lorazepam (Ativan Tab(*)) 0.5 mg PO Q6H PRN PRN Reason: ANXIETY Last Admin: 05/24/19 05:34 Dose: 0.5 mg Magnesium Hydroxide (Milk Of Magnesia Liq*) 30 ml PO DAILY [facility] Last Admin: 05/24/19 08:39 Dose: Not Given Metoclopramide HCl (Reglan Tab*) 5 mg PO Q6H PRN PRN Reason: DYSPEPSIA Last Admin: 05/20/19 16:46 Dose: 5 mg Morphine Sulfate (Ms Contin(*)) 15 mg PO Q8HR [facility] Last Admin: 05/24/19 05:31 Dose: 15 mg Ondansetron HCl (Zofran Inj*) 4 mg IV Q4H PRN PRN Reason: NAUSEA/VOMITING Last Admin: 05/22/19 21:37 Dose: 4 mg Oxycodone HCl (Roxycodone Tab*) 5 mg PO Q6H PRN PRN Reason: PAIN - MODERATE Last Admin: 05/23/19 00:36 Dose: 5 mg Pantoprazole Sodium (Protonix Tab*) 40 mg PO DAILY [facility] Last Admin: 05/24/19 08:38 Dose: 40 mg Pharmacy Profile Note (Scopolamine Patch Remove*) 1 note PATCH OFF Q72H [facility] Last Admin: 05/21/19 13:27 Dose: Not Given Polyethylene Glycol/Electrolytes (Miralax (17 Gm Dose Perfecto)) 17 gm PO 0800,2100 [facility] Last Admin: 05/24/19 08:38 Dose: 17 gm Scopolamine (Transderm-Scop 1.5 Mg Patch*) 1 patch TRANSDERM Q72H [facility] Last Admin: 05/21/19 13:23 Dose: 1 patch Senna (Senokot 8.6 Mg Tab*) 1 tab PO DAILY [facility] Last Admin: 05/24/19 08:38 Dose: 1 tab Objective: [] Vital Signs Temp Pulse Resp BP Pulse Ox 97.6 F 66 16 150/86 96 05/24/19 07:19 05/24/19 07:19 05/24/19 07:58 05/24/19 07:19 05/24/19 07:19 A&O, involved in plan of care, EOMI Some word finding difficulty and occasionally forgetful Left weaker than right, LUE 3/5, RUE 4/5, LLE 2/5 with limited active ROM, RLE 4 /5 HRR LS clear +BSx4, softly distended Sharma dark yellow urine Laboratory Results - last 24 hr 05/24/19 06:34 WBC 9.2 RBC 4.35 Hgb 14.9 Hct 43 MCV 99 H MCH 34 H MCHC 34 RDW 13 Plt Count 75 L MPV 7.3 L Neut % (Auto) 93.4 Lymph % (Auto) 1.8 [place] % (Auto) 4.5 Eos % (Auto) 0.0 Baso % (Auto) 0.3 Absolute Neuts (auto) 8.6 H Absolute Lymphs (auto) 0.2 L Absolute Monos (auto) 0.4 Absolute Eos (auto) 0.0 Absolute Basos (auto) 0.0 Absolute Nucleated RBC 0.0 Nucleated RBC % 0.0 Assessment: []Mr. Temple is a 54 yo male with a relatively new diagnosis of metastatic melanoma admitted earlier this month with urinary retention and intractable pain found to have leptomeningeal disease involving the conus medularis now s/p palliative RT to the [facility]. He presented to the office on 05/15/19 with increased left sided weakness and intractable nausea found to have an acute cerebral hemorrhage at a known metastatic site and recurrent urinary obstruction with BANG. Hemorrhage appears stable and is now receiving WBRT. Today is Day 6 of planned 10. His renal function and potassium have both improved and he is clinically stable for discharge, but he is not able to go home safely. Plan: []1. Cerebral hemorrhage 2/2 BARN BOSS mets from melanoma - WBRT x 10 fractions, will complete 05/30/19 - no seizure activity and developed new thrombocytopenia on Keppra therefore held as of 05/22/19 - discussed dex. with Aric WALLIS and will start taper d/t severity of disease and goal of starting systemic immunotherapy - left sided weakness stable 2. BANG secondary to urinary obstruction: resolved with sharma 3. Metastatic melanoma - BRAF negative - hopeful to get to systemic immunotherapy following WBRT and dex taper - prognosis is poor and has been reviewed with patient and family - palliative consult this evening 4. Left sided weakness: - PMRU bed offer, insurance auth pending 5. Thrombocytopenia: - persistent despite stopping Keppra therefore concerning for bone marrow involvement - possible post RT to sacrum affect, though timing doesn't quit fit - case reports with statins and limited termination clerk benefit therefore will stop atorvastatin 6. DVT prophylaxis - no chemical prophylaxis with hemorrhage and new thrombocytopenia
[2019-05-24] MEDS: Scopolamine 1.5 mg* PATCH TRANSDERM SCH (13:34)
[2019-05-24] MEDS: Scopolamine PATCH Remove* 1 NOTE MISC PATCH OFF SCH ×2 (13:36→13:41)
[2019-05-24] MEDS: Ondansetron INJ* 2 MG/ML VIAL IV PRN (20:14)
--- NOTE | 2019-05-24 20:30 | CONSULT ---
Palliative / Hospice Consult Ordering Provider: Hailey Whitaker - PCP-Greyson Pompa Referal Reason: Goals of care /senna & PEG/MS & oxy - Subjective Code Status: DNR Advance Directives Location: No Advance Directives MOLST Part A Completed: Yes - on chart MOLST Part E Completed:: Yes - on chart - History or Present Illness History or Present Illness: 54yo male with stage 4 melanoma presents from oncology clinic s/p brain MRI which showed acute hemorrhagic brain lesion. PMH is significant for melanoma on thigh removed 7yrs ago, 3wks ago pt presented with brain and abdominal mets, HTN and hyperlipidemia. PSHx ex tob, rare etoh, no drug use, lives with . Studies brain MRI-ischemic foci embolic origin, leptomeningeal metastatic disease, abd/pel U/S-R & L hydronephrosis, R renal retroperitoneal and pelvic mass, brain CT-unchanged hemorrhagic mets, brain CT #2 unchanged no severe mass effect, H/H 14.7/44, BUN/Cr 46/1.17, egfr 64.5, alb 3.4 and INR .93. Pt admitted with acute cerebral hemorrhagic due to metastatic disease and BANG. Pt with previous hospitalization 05/03-05/08 for biopsy and radiation at other facility. All history from family and medical record. Lab Values: Abnormal Lab Results 05/24/19 06:34 WBC 9.2 RBC 4.35 Hgb 14.9 Hct 43 MCV 99 H MCH 34 H MCHC 34 RDW 13 Plt Count 75 L MPV 7.3 L Neut % (Auto) 93.4 Lymph % (Auto) 1.8 Marion % (Auto) 4.5 Eos % (Auto) 0.0 Baso % (Auto) 0.3 Absolute Neuts (auto) 8.6 H Absolute Lymphs (auto) 0.2 L Absolute Monos (auto) 0.4 Absolute Eos (auto) 0.0 Absolute Basos (auto) 0.0 Absolute Nucleated RBC 0.0 Nucleated RBC % 0.0 Laboratory Last Values WBC 9.2 10^3/uL (3.5-10.8) 05/24/19 06:34 RBC 4.35 10^6 /uL (4.18-5.48) 05/24/19 06:34 Hgb 14.9 g/dL (14.0-18.0) 05/24/19 06:34 Hct 43 % (42-52) 05/24/19 06:34 MCV 99 fL (80-94) H 05/24/19 06:34 MCH 34 pg (27-31) H 05/24/19 06:34 MCHC 34 g/dL (31-36) 05/24/19 06:34 RDW 13 % (10-15) 05/24/19 06:34 Plt Count 75 10^3/uL (150-450) L 05/24/19 06:34 MPV 7.3 fL (7.4-10.4) L 05/24/19 06:34 Neut % (Auto) 93.4 % 05/24/19 06:34 Lymph % (Auto) 1.8 % 05/24/19 06:34 Marion % (Auto) 4.5 % 05/24/19 06:34 Eos % (Auto) 0.0 % 05/24/19 06:34 Baso % (Auto) 0.3 % 05/24/19 06:34 Absolute Neuts (auto) 8.6 10^3/ul (1.5-7.7) H 05/24/19 06:34 Absolute Lymphs (auto) 0.2 10^3/ul (1.0-4.8) L 05/24/19 06:34 Absolute Monos (auto) 0.4 10^3/ul (0-0.8) 05/24/19 06:34 Absolute Eos (auto) 0.0 10^3/ul (0-0.6) 05/24/19 06:34 Absolute Basos (auto) 0.0 10^3/ul (0-0.2) 05/24/19 06:34 Absolute Nucleated RBC 0.0 10^3/ul 05/24/19 06:34 Nucleated RBC % 0.0 05/24/19 06:34 Hem Pathologist Commnt 05/21/19 06:35 INR (Anticoag Therapy) 0.93 (0.82-1.09) 05/15/19 14:39 APTT 22.7 seconds (26.0-38.0) L 05/15/19 14:39 Sodium 135 mmol/L (135-145) 05/23/19 06:07 Potassium 4.6 mmol/L (3.5-5.0) 05/23/19 06:07 Chloride 97 mmol/L (101-111) L 05/23/19 06:07 Carbon Dioxide 30 mmol/L (22-32) 05/23/19 06:07 Anion Gap 8 mmol/L (2-11) 05/23/19 06:07 BUN 46 mg/dL (6-24) H 05/23/19 06:07 Creatinine 1.17 mg/dL (0.67-1.17) 05/23/19 06:07 Est GFR ( Amer) 78.0 (>60) 05/23/19 06:07 Est GFR (Non-Af Amer) 64.5 (>60) 05/23/19 06:07 BUN/Creatinine Ratio 39.3 (8-20) H 05/23/19 06:07 Glucose 145 mg/dL (70-100) H 05/23/19 06:07 Uric Acid 6.4 mg/dL (4.4-7.6) 05/19/19 07:17 Calcium 8.6 mg/dL (8.6-10.3) 05/23/19 06:07 Magnesium 2.3 mg/dL (1.9-2.7) 05/21/19 06:35 Total Bilirubin 0.90 mg/dL (0.2-1.0) 05/23/19 06:07 AST 15 U/L (13-39) 05/23/19 06:07 ALT 34 U/L (7-52) 05/23/19 06:07 Alkaline Phosphatase 45 U/L (34-104) 05/23/19 06:07 Lactate Dehydrogenase 282 U/L (140-271) H 05/21/19 06:35 Total Protein 5.6 g/dL (6.4-8.9) L 05/23/19 06:07 Albumin 3.4 g/dL (3.2-5.2) 05/23/19 06:07 Globulin 2.2 g/dL (2-4) 05/23/19 06:07 Albumin/Globulin Ratio 1.5 (1-3) 05/23/19 06:07 Cortisol 1.71 mcg/dL 05/18/19 06:22 Urine Color Yellow 05/15/19 16:21 Urine Appearance Clear 05/15/19 16:21 Urine pH 5.0 (5-9) 05/15/19 16:21 Ur Specific Mildred 1.016 (1.010-1.030) 05/15/19 16:21 Urine Protein Negative (Negative) 05/15/19 16:21 Urine Ketones Negative (Negative) 05/15/19 16:21 Urine Blood 1+ (Negative) A 05/15/19 16:21 Urine Nitrate Negative (Negative) 05/15/19 16:21 Urine Bilirubin Negative (Negative) 05/15/19 16:21 Urine Urobilinogen Negative (Negative) 05/15/19 16:21 Ur Leukocyte Esterase Negative (Negative) 05/15/19 16:21 Urine WBC (Auto) Absent (Absent) 05/15/19 16:21 Urine RBC (Auto) 2+(6-10/hpf) (Absent) A 05/15/19 16:21 Urine Bacteria Absent (Absent) 05/15/19 16:21 Urine Glucose 1+(50 mg/dl) (Negative) A 05/15/19 16:21 - Objective Active Medications: Acetaminophen (Tylenol Tab*) 650 mg PO Q4H PRN PRN Reason: mild pain/fever Amlodipine Besylate (Norvasc Tab*) 10 mg PO DAILY [facility] Last Admin: 05/24/19 08:38 Dose: 10 mg Cyclobenzaprine HCl (Flexeril Tab*) 10 mg PO TID PRN PRN Reason: SPASMS Last Admin: 05/22/19 21:29 Dose: 10 mg Dexamethasone Sodium Phosphate (Decadron Iv*) 6 mg IV SLOW PU Q8HR [facility] Last Admin: 05/24/19 13:36 Dose: 6 mg Lorazepam (Ativan Tab(*)) 0.5 mg PO Q6H PRN PRN Reason: ANXIETY Last Admin: 05/24/19 20:14 Dose: 0.5 mg Magnesium Hydroxide (Milk Of Magnesia Liq*) 30 ml PO DAILY [facility] Last Admin: 05/24/19 08:39 Dose: Not Given Metoclopramide HCl (Reglan Tab*) 5 mg PO Q6H PRN PRN Reason: DYSPEPSIA Last Admin: 05/20/19 16:46 Dose: 5 mg Morphine Sulfate (Ms Contin(*)) 15 mg PO Q8HR [facility] Last Admin: 05/24/19 13:36 Dose: 15 mg Ondansetron HCl (Zofran Inj*) 4 mg IV Q4H PRN PRN Reason: NAUSEA/VOMITING Last Admin: 05/24/19 20:14 Dose: 4 mg Oxycodone HCl (Roxycodone Tab*) 5 mg PO Q6H PRN PRN Reason: PAIN - MODERATE Last Admin: 05/23/19 00:36 Dose: 5 mg Pantoprazole Sodium (Protonix Tab*) 40 mg PO DAILY [facility] Last Admin: 05/24/19 08:38 Dose: 40 mg Pharmacy Profile Note (Scopolamine Patch Remove*) 1 note PATCH OFF Q72H [facility] Last Admin: 05/24/19 13:41 Dose: Not Given Polyethylene Glycol/Electrolytes (Miralax (17 Gm Dose Perfecto)) 17 gm PO 0800,2100 [facility] Last Admin: 05/24/19 20:08 Dose: Not Given Scopolamine (Transderm-Scop 1.5 Mg Patch*) 1 patch TRANSDERM Q72H [facility] Last Admin: 05/24/19 13:34 Dose: 1 patch Senna (Senokot 8.6 Mg Tab*) 1 tab PO DAILY [facility] Last Admin: 05/24/19 08:38 Dose: 1 tab Vital Signs: Vital Signs: Temp Pulse Resp BP Pulse Ox 98.3 F 80 18 137/82 94 05/24/19 19:25 05/24/19 19:25 05/24/19 20:14 05/24/19 19:25 05/24/19 19:25 Patient Weight: Weight 127.225 kg Intake and Output: Intake & Output 05/22/19 05/23/19 05/24/19 05/25/19 06:59 06:59 06:59 06:59 Intake Total 950 2230 820 2260 Output Total 1850 2525 1550 550 Balance -900 295 -730 1710 Intake: Oral 950 2230 820 2260 Output: Urine 400 0 Connor 1450 2525 1550 550 Other: Estimated Void Medium # Bowel Movements 0 Estimated Stool Amount Medium Medium ADLs: Meal Record Start: 05/15/19 12: 52 Freq: 09,13,18 Status: Complete Protocol: Created 05/15/19 12:52 System (Rec: 05/15/19 12:52 System ICU-C10) Document 05/15/19 13:00 OGH1657 (Rec: 05/15/19 18:03 WAU7439 ICU-C10) Document 05/15/19 18:00 QMS9880 (Rec: 05/15/19 19:27 BOL1183 ICU-C10) Document 05/16/19 09:00 LQQ1415 (Rec: 05/16/19 09:18 JIJ1422 ICU-L03) Document 05/16/19 13:00 JQY9032 (Rec: 05/16/19 15:44 KDE0760 ICU-C16) Document 05/16/19 18:00 KJA4829 (Rec: 05/16/19 18:58 KYE0433 ICU-M35) Document 05/17/19 09:00 JOM8247 (Rec: 05/17/19 11:19 DEY9609 ICU-C10) ADLs: Meal Record Start: 05/17/19 13: 19 Freq: DAILY@0900,1400,1800 Status: Active Protocol: Created 05/17/19 13:19 CEE0026 (Rec: 05/17/19 13:19 SFP5442 ICU-C10) Document 05/17/19 14:00 YTL1809 (Rec: 05/17/19 14:47 KIT4415 ICU-C10) Document 05/17/19 18:00 QSH3053 (Rec: 05/17/19 18:11 WAQ5018 ICU-C10) Document 05/18/19 09:00 DUU6285 (Rec: 05/18/19 09:28 LNL2894 ICU-C20) Document 05/18/19 14:00 OKB7147 (Rec: 05/18/19 15:38 RZE5930 ICU-C10) Document 05/18/19 18:00 DCJ1121 (Rec: 05/18/19 22:15 LZC1287 TELE-C10) Document 05/19/19 09:00 PAI9619 (Rec: 05/19/19 09:04 YBB0702 TELE-C11) Document 05/19/19 13:28 BHL0404 (Rec: 05/19/19 13:29 ZNY9161 TELE-C11) Document 05/19/19 17:59 MLA4685 (Rec: 05/19/19 17:59 OUI7014 TELE-C11) Document 05/20/19 09:00 JPM3811 (Rec: 05/20/19 09:35 VVD0293 TELE-C11) Document 05/20/19 13:53 JXA2435 (Rec: 05/20/19 13:53 PQN9453 TELE-C11) Document 05/20/19 18:00 WMW1933 (Rec: 05/20/19 19:10 LYZ3490 TELE-C11) Document 05/21/19 09:00 IZX0028 (Rec: 05/21/19 09:19 JHM9915 TELE-C11) Document 05/21/19 12:49 PPB8519 (Rec: 05/21/19 12:50 RON9458 TELE-C11) Document 05/21/19 17:46 JRK1395 (Rec: 05/21/19 17:46 BKK8812 CRM-C12) Document 05/22/19 09:00 CAO1083 (Rec: 05/22/19 11:12 WYE5745 TELE-C07) Document 05/22/19 11:12 PLY0994 (Rec: 05/22/19 11:13 ZPS5684 TELE-M11) Document 05/22/19 11:15 FDI9243 (Rec: 05/22/19 11:19 RTK6578 TELE-M11) Document 05/22/19 12:54 KKJ8748 (Rec: 05/22/19 12:55 OFE5302 TELE-C10) Document 05/22/19 18:00 YJI8133 (Rec: 05/22/19 19:52 VRD0494 TELE-C10) Document 05/23/19 09:00 HLP8125 (Rec: 05/23/19 10:49 HXO1457 TELE-C07) Document 05/23/19 13:19 FSY8861 (Rec: 05/23/19 13:20 EBZ1402 TELE-C07) Document 05/23/19 18:00 HXC8332 (Rec: 05/23/19 20:07 JUI0131 TELE-C13) Document 05/24/19 09:00 IUR0388 (Rec: 05/24/19 09:22 SFO5010 TELE-C11) Document 05/24/19 14:00 OJL1057 (Rec: 05/24/19 14:31 SGL3413 TELE-C11) Document 05/24/19 18:00 LGD7092 (Rec: 05/24/19 18:45 JJZ8069 TELE-C11) Intake and Output Start: 05/15/19 12: 52 Freq: Q1HR Status: Complete Protocol: Created 05/15/19 12:52 System (Rec: 05/15/19 12:52 System ICU-C10) Document 05/15/19 13:30 GEC5233 (Rec: 05/15/19 17:13 QNB1112 IMG-C11) Document 05/15/19 15:00 XSK6093 (Rec: 05/15/19 15:57 VWD9759 ICU-M35) Document 05/15/19 18:00 DOC4416 (Rec: 05/15/19 18:03 KLG2218 ICU-C10) Document 05/15/19 19:00 DLW3674 (Rec: 05/15/19 21:11 RHV8365 ICU-M35) Document 05/15/19 20:00 FGA8671 (Rec: 05/15/19 21:11 HVS7173 ICU-M35) Document 05/15/19 21:00 IXP9326 (Rec: 05/15/19 21:11 NDZ2355 ICU-M35) Document 05/15/19 22:00 STM5780 (Rec: 05/16/19 00:55 MKL8372 ICU-C16) Document 05/15/19 23:00 WGJ6847 (Rec: 05/16/19 00:55 XAG1037 ICU-C16) Document 05/16/19 00:00 GZQ4369 (Rec: 05/16/19 00:55 MVI0316 ICU-C16) Document 05/16/19 01:00 QNN0200 (Rec: 05/16/19 03:58 NUP8299 ICU-C16) Document 05/16/19 02:00 CLW3468 (Rec: 05/16/19 03:58 VMF6847 ICU-C16) Document 05/16/19 03:00 ZJO8172 (Rec: 05/16/19 03:58 YZB3396 ICU-C16) Document 05/16/19 03:57 YCL9844 (Rec: 05/16/19 03:58 ZCN2517 ICU-C16) Document 05/16/19 05:00 LYW6866 (Rec: 05/16/19 05:59 WJG3563 ICU-M35) Document 05/16/19 05:59 NBX9448 (Rec: 05/16/19 05:59 BXL9327 ICU-M35) Document 05/16/19 07:00 JTT7589 (Rec: 05/16/19 08:02 UWB3003 ICU-M35) Document 05/16/19 08:00 ZZW1933 (Rec: 05/16/19 08:02 EAC1467 ICU-M35) Document 05/16/19 09:00 FDW3003 (Rec: 05/16/19 12:17 BOJ0019 ICU-M35) Document 05/16/19 10:00 DUJ0297 (Rec: 05/16/19 12:17 REP5766 ICU-M35) Document 05/16/19 11:00 PII6772 (Rec: 05/16/19 12:17 EWA3908 ICU-M35) Document 05/16/19 12:00 LDM4905 (Rec: 05/16/19 12:17 VLV3285 ICU-M35) Document 05/16/19 13:00 WEY8169 (Rec: 05/16/19 15:57 LIR6917 ICU-M35) Document 05/16/19 14:00 YZH2833 (Rec: 05/16/19 15:57 KYL9208 ICU-M35) Document 05/16/19 15:00 VCZ4204 (Rec: 05/16/19 15:57 HQO5830 ICU-M35) Document 05/16/19 16:00 STT8784 (Rec: 05/16/19 18:55 FRZ1706 ICU-M35) Document 05/16/19 17:00 TUL3520 (Rec: 05/16/19 18:55 RYT0470 ICU-M35) Document 05/16/19 18:00 TYF3810 (Rec: 05/16/19 18:55 XNR2329 ICU-M35) Document 05/16/19 20:54 HZV4777 (Rec: 05/16/19 20:55 FIB2191 ICU-C12) Document 05/16/19 22:16 JVT6232 (Rec: 05/16/19 22:17 QEV2162 ICU-C12) Document 05/17/19 00:00 AYB2239 (Rec: 05/17/19 00:46 YTI0398 ICU-C12) Document 05/17/19 01:00 BLG4339 (Rec: 05/17/19 01:04 ABQ0569 ICU-C12) Document 05/17/19 03:00 APJ5788 (Rec: 05/17/19 03:57 LCI0298 ICU-C12) Document 05/17/19 04:00 XQP7168 (Rec: 05/17/19 06:07 MIZ3791 ICU-C12) Document 05/17/19 05:00 EGX4662 (Rec: 05/17/19 06:07 HKY3336 ICU-C12) Document 05/17/19 06:00 IHD9361 (Rec: 05/17/19 06:07 OHI0754 ICU-C12) Document 05/17/19 08:00 CJF7727 (Rec: 05/17/19 08:19 BPS6913 ICU-C10) Document 05/17/19 11:06 GBZ4564 (Rec: 05/17/19 11:06 TOU3264 ICU-C10) Intake and Output Start: 05/17/19 13: 19 Freq: DAILY@0600,1400,2200 Status: Active Protocol: Created 05/17/19 13:19 XWP9872 (Rec: 05/17/19 13:19 AEW3582 ICU-C10) Document 05/17/19 13:20 YLP1653 (Rec: 05/17/19 13:20 GTP8666 ICU-C10) Document 05/17/19 20:09 ICU2209 (Rec: 05/17/19 20:09 FSJ3928 ICU-C12) Document 05/17/19 20:55 PSW6940 (Rec: 05/17/19 20:55 DRQ5407 ICU-C12) Document 05/17/19 22:33 GTI1445 (Rec: 05/17/19 22:33 UDI5071 ICU-M35) Document 05/17/19 23:59 TJS3095 (Rec: 05/18/19 00:00 LTB4854 ICU-C12) Document 05/18/19 02:52 IVA7180 (Rec: 05/18/19 02:53 XGI1435 ICU-C12) Document 05/18/19 04:00 SIV9098 (Rec: 05/18/19 04:28 WYQ7029 ICU-C12) Document 05/18/19 06:00 EAC7452 (Rec: 05/18/19 06:01 FLA1910 ICU-C12) Document 05/18/19 07:00 XMN2895 (Rec: 05/18/19 07:31 YWH8807 ICU-C10) Document 05/18/19 08:00 CEO2799 (Rec: 05/18/19 09:45 JXD7002 ICU-C10) Document 05/18/19 10:00 NZJ5321 (Rec: 05/18/19 12:13 DUX5349 ICU-C10) Document 05/18/19 14:00 PLI2224 (Rec: 05/18/19 15:38 JTF0817 ICU-C10) Document 05/18/19 20:07 ONU6257 (Rec: 05/18/19 20:07 HXF8776 TELE-C10) Document 05/19/19 06:00 KJV5050 (Rec: 05/19/19 06:41 IHP4980 TELE-C09) Document 05/19/19 13:27 WAZ1762 (Rec: 05/19/19 13:27 ESU9562 TELE-C11) Document 05/19/19 22:00 XNA1232 (Rec: 05/19/19 22:42 WAB7415 TELE-C09) Document 05/20/19 04:45 XRN6284 (Rec: 05/20/19 04:45 XAH3670 MED-M22) Document 05/20/19 05:13 FOY1966 (Rec: 05/20/19 05:15 JFN6042 TELE-C07) Document 05/20/19 13:59 CUO8175 (Rec: 05/20/19 14:00 KHG1373 TELE-C11) Document 05/20/19 17:43 FTW5975 (Rec: 05/20/19 17:43 XIT1199 TELE-C09) Document 05/20/19 22:00 GMR6603 (Rec: 05/21/19 00:15 MWH9891 TELE-C09) Document 05/21/19 06:00 LOV7646 (Rec: 05/21/19 06:32 JUU5963 TELE-C09) Document 05/21/19 13:01 FWR3008 (Rec: 05/21/19 13:01 PKK4402 TELE-C11) Document 05/21/19 22:00 OUX7409 (Rec: 05/21/19 22:03 IWN5655 CRM-C12) Document 05/22/19 03:42 UUF5234 (Rec: 05/22/19 03:42 HPX9158 TELE-C32) Document 05/22/19 05:18 EUX4793 (Rec: 05/22/19 05:19 EXS8951 TELE-C32) Document 05/22/19 13:33 YGX5377 (Rec: 05/22/19 13:33 LDH8860 TELE-C10) Document 05/22/19 22:00 ZDM7278 (Rec: 05/22/19 22:36 EYK6525 TELE-C10) Document 05/23/19 06:00 KYR1817 (Rec: 05/23/19 06:23 CWL0691 TELE-C11) Document 05/23/19 13:24 TOR2598 (Rec: 05/23/19 13:24 WQC0298 TELE-C07) Document 05/23/19 22:00 VZL6813 (Rec: 05/23/19 22:09 HFO2005 TELE-C13) Document 05/24/19 03:49 NEL3577 (Rec: 05/24/19 03:49 TOJ6078 TELE-C05) Document 05/24/19 06:00 PWG5122 (Rec: 05/24/19 06:16 HPQ4255 TELE-C11) Document 05/24/19 14:00 XSO8565 (Rec: 05/24/19 14:31 VSP4760 TELE-C11) Document 05/24/19 15:34 CDJ7296 (Rec: 05/24/19 15:34 OII8545 TELE-C11) Eyes: No Scleral Icterus Ears/Nose/Mouth/Throat: NL Teeth, Lips, Gums, Mucous Membranes Moist Cardiovascular: NL Sounds; No Murmurs; No JVD, RRR, - - 1+ LE edema Respiratory: Symmetrical Chest Expansion and Respiratory Effort Abdominal: - - BS+ soft, moderately distended, mildly tender to palpation throughout, tympanic to percussion Extremities: No Clubbing, Cyanosis Neurological: Alert and Oriented x 3 - Assessment Assessment: 54yo male with stage 4 melanoma with mets to brain and abdomen - Plan Consult Plan (MU): Palliative Plan: 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 Family is still in shock since it has only been 3 wks since metastatic disease was discovered. They are not sure if pt is aware the cancer is terminal. Prognosis is 3-6 months without immunotherapy and 1 year with therapy. Currently pt is receiving palliative radiation to shrink brain mets. For now they want to pursue therapy and want pt to go to rehab to get stronger and preserve pivoting to help with transferring. wants to bring pt home and care for him there, that is also what she thinks he wants. She doesn't want him to suffer. After rehab, if pt has declined and is not eligible for immunotherapy she will consider hospice. Two sets of friends have had negative experiences with hospice and she is slightly reluctant to call them. We discussed hospice and the benefit of involving them. Stressed to give hospice a try and if she wasn't comfortable could sign off. If pt has improved at discharge from rehab, rehab will help set up visiting nurse service and help with hospital bed, commode. Pt currently is not able to pivot and would not be able to pick pt up off the floor if he fell. Family would like me to talk with pt in am about wishes for end of life care. Pt is hospice eligible with a diagnosis of stage 4 melanoma. KPS 40%, PPS 40% - Time On Unit Date of Evaluation: 05/24/19 Hospice Consult Time in: 17:00 Hospice Consult Time Out: 18:00 Hospice Consult Time Total: 60 > 50% of Time Spend In Counseling or Coordinating Care: Yes
[2019-05-25 05:21] LABS: ABS Lymphocytes 0.2 10^3/ul (1.0-4.8); ABS Monocytes 0.3 10^3/ul (0-0.8); ABS Neutrophils 10.2 10^3/ul (1.5-7.7); Hematocrit 44 % (42-52); Hemoglobin 14.7 g/dL (14.0-18.0); Lymphocyte % 1.5 %; Mean Corpuscular HGB Conc 34 g/dL (31-36); Mean Corpuscular Hemoglobin 34 pg (27-31); Mean Corpuscular Volume 100 fL (80-94); Mean Platelet Volume 7.6 fL (7.4-10.4); Platelet Count 76 10^3/uL (150-450); Red Blood Count 4.34 10^6 /uL (4.18-5.48); Red Cell Distribution Width 13 % (10-15); White Blood Count 10.7 10^3/uL (3.5-10.8)
[2019-05-25] MEDS: Morphine TAB Extended Release (*) 15 MG TAB.ER PO SCH (05:31)
[2019-05-25] MEDS: Dexamethasone IV* 4 MG/ML 1 ML (4 MG) IV SLOW PU SCH (05:32)
[2019-05-25 05:34] LABS: Albumin 3.2 g/dL (3.2-5.2); Albumin/Globulin Ratio 1.5 (1-3); BUN/Creatinine Ratio 39.2 (8-20); Calcium 8.7 mg/dL (8.6-10.3); EGFR African American 72.3 (>60); EGFR Non-African American 59.7 (>60); Globulin 2.1 g/dL (2-4); Potassium 4.8 mmol/L (3.5-5.0); Total Bilirubin 0.8 mg/dL (0.2-1.0); Total Protein 5.3 g/dL (6.4-8.9)
[2019-05-25] MEDS: Polyethylene Glycol 3350* 17 GM PACKET PO SCH (07:12)
[2019-05-25] MEDS: Senna TAB 8.6 mg* TAB PO SCH (07:28)
[2019-05-25] MEDS: Magnesium Hydroxide LIQ* 30 ML UDC PO SCH (08:12)
[2019-05-25] MEDS: Pantoprazole TAB * 40 MG TAB PO SCH (08:13)
[2019-05-25] MEDS: amLODIPine TAB* 5 MG PO SCH (08:13)
[2019-05-25 08:31] VITALS: BP 119/69
[2019-05-25] MEDS ORDERED: Dexamethasone TAB* 4 MG PO SCH (09:00)
--- NOTE | 2019-05-25 12:42 | DS ---
DISCHARGE SUMMARY: DATE OF ADMISSION: 05/15/19 DATE OF DISCHARGE: 05/25/19 ATTENDING PHYSICIAN: Dr. Velasquez. ADMISSION DIAGNOSES: 1. Metastatic melanoma, BRAF negative including central nervous system metastases as well as leptomeningeal disease including the cauda equina. 2. Acute renal insufficiency. 3. Bladder outlet obstruction secondary to neurogenic bladder related to metastatic melanoma. 4. Hyperkalemia. 5. Neurologic deficit related to metastatic melanoma. DISCHARGE DIAGNOSES: 1. Metastatic melanoma, BRAF negative to the central nervous system, with progressive central nervous system metastases as well as leptomeningeal disease , cauda equina involvement. Post palliative external beam radiotherapy to the L spine 2. Known central nervous system metastases, currently receiving whole brain radiotherapy to complete on 05/30/19. 3. Resolved hyperkalemia. 4. Improved neurogenic bladder with Connor catheter in place. 5. Improved acute kidney injury. 6. Thrombocytopenia, stable, felt secondary to Keppra.(Keppra Held) INTERVENTIONS DURING THE HOSPITALIZATION: Include: 1. Palliative whole brain radiotherapy, which continues to complete on . 2. Occupational medicine and physical therapy evaluation. 3. Administration of antiepileptics as well as corticosteroids. 4. Placement of a Connor catheter. 5. Administration of analgesia. 6. Speech pathology evaluation. BRIEF HOSPITAL COURSE: This is a 54-year-old gentleman known to our service, followed by Dr. Velasquez, with a past medical history of melanoma. He has most recently been diagnosed with metastatic melanoma, BRAF negative involving the central nervous system with central nervous system metastases as well as leptomeningeal disease and involvement of the conus. He is status post palliative radiation to the lumbar spine. He currently is receiving whole brain radiotherapy. He has been maintained on antiepileptics as well as corticosteroids. Given the development of thrombocytopenia, his Keppra was stopped. His platelet count has remained stable. We are currently weaning his corticosteroids down to 4 mg p.o. q.8 hours. Neurologically, he has remained stable with some owky-tm-wxhcclog improvement. He has remained on a pureed diet , with Speech Pathology following. A Connor catheter was placed for bladder outlet obstruction/neurogenic bladder with improvement in his renal function/ creatinine. His hyperkalemia improved with placement of the Connor catheter as well as prior Kayexalate. It will be planned that the patient be discharged to the PMR unit on date of 05/25/19 for ongoing rehabilitation. DISCHARGE MEDICATIONS: Will include: 1. Tylenol 325 mg tablet, 650 mg p.o. q.4 hours p.r.n. 2. Norvasc 10 mg p.o. daily. 3. Cyclobenzaprine 10 mg t.i.d. p.r.n. 4. Dexamethasone 4 mg p.o. t.i.d. 5. Ativan 0.5 mg p.o. q.6 hours p.r.n. 6. Morphine tablet extended release 15 mg p.o. q.8 hours. 7. Zofran 4 mg IV q.4 hours p.r.n. 8. Oxycodone 5 mg p.o. q.6 hours p.r.n. 9. Protonix 40 mg p.o. daily. 10. Polyethylene glycol (MiraLAX) 17 g p.o. daily. 11. Senna 1 tab p.o. daily. DISCHARGE ACTIVITY: Will be as determined by PMR. DISCHARGE DIET: Will be pureed. FOLLOWUP: Will be arranged with Dr. Velasquez on discharge from PMR. DISPOSITION: To PMR for ongoing rehabilitation. CONDITION: Fair. [id number]/[facility] #: [id number] [facility]
== END 2019-05-25 10:00 | DRG 54 ==
LOC: CHOA 09:52 → ICU 12:33 → MEDTELE 05-18 10:40
PROVIDERS: ADMIT Internal Medicine Hematology & Oncology; ATTEND Internal Medicine Hematology & Oncology
PROC: D0001ZZ Beam Radiation of Brain using Photons 1 - 10 MeV (ICD-10-PCS; principal; 2019-05-17)
DX: C79.31 Secondary malignant neoplasm of brain (principal); I61.8 Other nontraumatic intracerebral hemorrhage; C79.32 Secondary malignant neoplasm of cerebral meninges; G81.94 Hemiplegia, unspecified affecting left nondominant side; N17.9 Acute kidney failure, unspecified; G83.4 Cauda equina syndrome; N13.39 Other hydronephrosis; C78.6 Secondary malignant neoplasm of retroperitoneum and peritoneum; E87.2 Acidosis; C79.49 Secondary malignant neoplasm of other parts of nervous system; E87.5 Hyperkalemia; Z66 Do not resuscitate; D69.59 Other secondary thrombocytopenia; T42.6X5A Adverse effect of other antiepileptic and sedative-hypnotic drugs, initial encounter; Y92.239 Unspecified place in hospital as the place of occurrence of the external cause; N32.0 Bladder-neck obstruction; I10 Essential (primary) hypertension; K59.00 Constipation, unspecified; E78.5 Hyperlipidemia, unspecified; F41.9 Anxiety disorder, unspecified; E86.1 Hypovolemia; Z85.820 Personal history of malignant melanoma of skin; Z79.899 Other long term (current) drug therapy; Z83.3 Family history of diabetes mellitus; Z87.891 Personal history of nicotine dependence; Z82.49 Family history of ischemic heart disease and other diseases of the circulatory system
CPT/HCPCS: 36415; 70450; 70553; 76770; 77280; 77307; 77334; 77336; 77387; 77412; 80048; 80053; 81003; 81015; 82533; 83615; 83735; 84550; 85025; 85027; 85060; 85610; 85730; 87641; 93005; 96374; 97112; 99215; 99223; 99232; 99233; A9270-GY; A9579; G0463; J0610; J1100; J1940; J2405; J8540

== ENCOUNTER 2019-05-25 08:30 | Inpatient (IN) | payer OTHER ==
[2019-05-25] MEDS ORDERED: Magnesium Hydroxide LIQ* 30 ML UDC PO PRN (12:13)
[2019-05-25] MEDS: Dexamethasone TAB* 4 MG PO SCH ×2 (14:17→23:43)
[2019-05-25] MEDS: LORazepam TAB(*) 0.5 MG PO PRN ×2 (14:17→21:21)
[2019-05-25] MEDS: Morphine TAB Extended Release (*) 15 MG TAB.ER PO SCH ×2 (14:18→21:21)
[2019-05-25] MEDS: Senna TAB 8.6 mg* TAB PO SCH (19:36)
[2019-05-25] MEDS: Docusate CAP* 100 MG PO SCH (19:36)
--- NOTE | 2019-05-25 21:13 | HP ---
HISTORY AND PHYSICAL: DATE OF ADMISSION: 05/25/19 REASON FOR ADMISSION: Malignant melanoma; brain metastasis with intra-axial hemorrhage. HISTORY OF PRESENT ILLNESS: Ponce Temple is a 54-year-old male who was diagnosed with melanoma 8 years ago. He was initially was found to have melanoma in the left thigh. He underwent a wide local excision and lymph node dissection at [facility]. He was offered interferon but did not take it at that time. A PET scan was done which was negative. At the beginning of April, the patient developed some constipation and was unable to move his bowel for 4 days. He took MiraLAX. He had been exercising more frequently in March as he was not working. He developed significant low back pain radiating to his groin and extending into his buttocks more on the left side than the right. He was taking ibuprofen without relief. He presented to the [facility] on 05/02/19. He was given IV morphine at the [facility] and sent home with Flexeril and oxycodone but had no significant benefit from those medications. He also had a CAT scan of his abdomen and pelvis showing enlarged lymph nodes in the abdomen and pelvis and a large mass near the right kidney. There was a significant L5-S1 disk protrusion. The patient was sent to [facility] on 03/10 for pain control and he was admitted for that. He had MRIs of his cervical, thoracic, and lumbar spine. He was started on IV steroids. Dr. Umaña of Radiation Oncology saw the patient in consult on 05/04/19. He was starting palliative radiation to the spine on 05/08/19. He did have a biopsy confirming metastatic melanoma. He was discharged to home 05/08/19 with long- acting morphine. The patient returned in followup to the [facility] offices on . He underwent a CAT scan of his head for followup of his known brain lesions and was found to have an acute hemorrhagic lesion in the left frontoparietal temporal lobe. He was directly admitted to the intensive care unit for neurologic monitoring. The patient had already been on steroids. Whole brain radiation therapy was started. He was started on Keppra for seizure prophylaxis but developed thrombocytopenia and his Keppra was stopped. His platelet count remained stable in the 70,000 range. He had trouble swallowing, was put on a pureed diet. He did have a Connor catheter for continued blader outlet obstruction and neurogenic bladder. He was found to be hyperkalemic and given Kayexalate. The Kayexalate unfortunately gave him diarrhea. He had had limited control of his bowels and limited sensation of bowel movements. The patient has known cauda equina from the metastasis to his back. The patient was felt to have physical therapy and occupational therapy as well as speech therapy needs. He is now being admitted for inpatient rehab so that he may return to independent living. PAST MEDICAL HISTORY: As noted above for the metastatic melanoma. He has a history of hypertension. CURRENT MEDICATIONS: Include: 1. Ativan. 2. MS Contin. 3. Zofran. 4. Oxycodone. 5. Protonix. 6. Senokot. 7. MiraLAX. 8. Colace. 9. Decadron. 10. Norvasc. ALLERGIES: The patient has no known drug allergies. FAMILY HISTORY: Noncontributory, but his father at the age of 46 of an aortic aneurysm and his mother has diabetes and COPD. SOCIAL HISTORY: He is a nonsmoker, but a former smoker. He occasionally drinks. He lives in a 1 story house with his . 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 His is home full-time. There are 3 steps to enter in the house. REVIEW OF SYSTEMS: The patient reports again limited sensation when he is trying to have a bowel movement. PHYSICAL EXAMINATION VITAL SIGNS: Temperature is 97.4, blood pressure 146/85, pulse 68, respirations 20. HEENT: Extraocular movements appear to be intact. NECK: Supple. LUNGS: Sounded clear to auscultation. HEART: Sounds were regular. S1 and S2 are audible. ABDOMEN: Soft and nontender. EXTREMITIES: Lower extremities had decreased muscle tone. Peripheral pulses were intact. NEUROLOGIC: Sensation was diminished in the both legs broadly. Muscle strength in both legs was about 2/5. Upper extremities was about 5/5. He had good sensation in his abdomen. FUNCTIONAL EXAM: He transfers with max assist. ASSESSMENT: Metastatic melanoma with known cauda equina syndrome now with newly diagnosed brain mets with focal hemorrhage in the area of the metastasis. PLAN: Integrate him into a comprehensive and therapeutic rehab program with following goals: 1. Physical Therapy will work with the patient. They are going to work on functional transfer training, ambulation training with a walker. 2. Occupational Therapy will see the patient, work on his activities of daily living including toileting and toilet transfers. 3. Speech Therapy will see the patient, work on his swallowing difficulties, his dysphagia, and ordering an appropriate diet. 4. TELMA stockings for DVT prophylaxis. 5. Adequate analgesia. 6. Continued Connor catheter for neurogenic bladder. 7. For bowel program right now, we are going to monitor. We may do a daily suppository and regular bowel program. 8. Ice Skating Coach will be closely involved to make sure that any services and equipment the patient requires are in place prior to discharge. 9. Family training as appropriate. 10. Home with appropriate services. ESTIMATED LENGTH OF STAY: 10 to 14 days. [id number] #: [id number] MTDD
[2019-05-26] MEDS: LORazepam TAB(*) 0.5 MG PO PRN ×3 (04:19→22:28)
[2019-05-26 05:26] LABS: ALT 33 U/L (7-52); Albumin 3.1 g/dL (3.2-5.2); Albumin/Globulin Ratio 1.1 (1-3); Alkaline Phosphatase 37 U/L (34-104); Anion Gap 6 mmol/L (2-11); BUN/Creatinine Ratio 37.2 (8-20); Blood Urea Nitrogen 45 mg/dL (6-24); CO2 Carbon Dioxide 22 mmol/L (22-32); Calcium 8.1 mg/dL (8.6-10.3); Chloride 101 mmol/L (101-111); EGFR African American 75.1 (>60); Globulin 2.8 g/dL (2-4); Glucose 167 mg/dL (70-100); Sodium 129 mmol/L (135-145); Total Protein 5.9 g/dL (6.4-8.9)
[2019-05-26] MEDS: Morphine TAB Extended Release (*) 15 MG TAB.ER PO SCH ×3 (05:55→21:26)
[2019-05-26] MEDS: Dexamethasone TAB* 4 MG PO SCH ×3 (07:14→22:26)
[2019-05-26 07:51] LABS: ABS Lymphocytes 0.2 10^3/ul (1.0-4.8); ABS Monocytes 0.4 10^3/ul (0-0.8); ABS Neutrophils 9.3 10^3/ul (1.5-7.7); Hematocrit 47 % (42-52); Hemoglobin 15.7 g/dL (14.0-18.0); Mean Corpuscular HGB Conc 34 g/dL (31-36); Mean Corpuscular Hemoglobin 34 pg (27-31); Mean Corpuscular Volume 100 fL (80-94); Nucleated Red Blood Cells % 0.1; Red Blood Count 4.65 10^6 /uL (4.18-5.48); Red Cell Distribution Width 13 % (10-15); White Blood Count 9.9 10^3/uL (3.5-10.8)
[2019-05-26 08:19] LABS: Mean Platelet Volume 7.4 fL (7.4-10.4); Platelet Count 71 10^3/uL (150-450)
[2019-05-26] MEDS: Docusate CAP* 100 MG PO SCH ×2 (08:38→20:59)
[2019-05-26] MEDS: Polyethylene Glycol 3350* 17 GM PACKET PO SCH (08:38)
[2019-05-26] MEDS: amLODIPine TAB* 5 MG PO SCH (08:39)
[2019-05-26] MEDS: Pantoprazole TAB * 40 MG TAB PO SCH (08:39)
[2019-05-26] MEDS: Ondansetron ODT TAB* 4 MG PO PRN (12:50)
--- NOTE | 2019-05-26 12:57 | PMRUTEAM ---
PMRU: Team Meeting Current Status: Physical Therapy: Current Status Current Rolling Status Supervision/Touching Current Supine <-> Sit Status Partial/Moderate Current Sit <-> Stand Status Dependent Current Bed <-> Chair Status Dependent Transfer/Bed Mobility KELLY Recommended Devices Current Picking Up Object Dependent Status Current Car Transfer Status Dependent Current Ambulation Assistance Not attempted Status Current Wheelchair Propulsion Supervision/Touching Ability Status Wheelchair Distance (ft) 150' Current Stair Climbing Status Not attempted Current Curb Assistance Status Not attempted Occupational Therapy: Current Status Current Toilet Transfer Status Dependent Current Eating Status Setup or Clean-up Assist Nursing: Current Status Skin Deviations [Left Buttocks Pressure Ulcer ] Skin Deviation Description [ stage 2 received from report Left Buttocks] Wound Stage [Left Buttocks] II Goals: Physical Therapy: Goals Goals to Be Accomplished in ( 10-14 Days) Goal: Rolling Assistance Independent Goal Supine <-> Sit Status Independent Goal Sit <-> Stand Status Partial/Moderate Goal Bed <-> Chair Status Partial/Moderate Transfer/Bed Mobility Rolling Walker,Slide Board Recommended Devices Goal: Picking Up Object Partial/Moderate Goal: Car Transfer Status Partial/Moderate Goal: Ambulation Assistance Partial/Moderate Ambulation Assistive Devices Rolling Walker Ambulation Distance (ft) 50' Goal: Wheelchair Propulsion Independent Ability Wheelchair Distance (ft) 300' Goal: Stairs Assistance Partial/Moderate Stairs Recommended Devices One Rail Number of Stairs 1 Goal: Curb Assistance Partial/Moderate Goal: Home Exercise Program Independent Assistance Occupational Therapy: Goals Goals to be Completed in (Days 7-14 Days ) Goal Upper Body Dressing Setup or Clean-up Assist Routine Goal Lower Body Dressing Setup or Clean-up Assist Routine Goal Footwear Status Setup or Clean-up Assist Goal Bathing Routine (OT) Supervision/Touching Goal Grooming Routine Setup or Clean-up Assist Goal Toilet Hygiene and Supervision/Touching Clothing Management Routine Goal Toilet Transfer Routine Independent Goal Functional Transfers for Independent ADL Goal Feeding Routine Independent Goal Light Housekeeping Tasks Partial/Moderate Speech: Goals Speech Goal 1 Swallowing Goal 1 Comments Long-Term Goal: Patient will I'ly follow precautions to tolerate least restrictive diet consistencies w/ no complications from aspiration. Short Term Goals: 1) STG: Patient will demonstrate and follow swallowing exercises and compensatory strategies, to tolerate mechanocal/ground soft diet consistency w/ adequate rotary mastication and and oral transit, and no clinical s/s aspiration, Independently Care Plan: Care Plan Coping/Psych-Improve/Maintain Start: 05/25/19 10:55 Freq: DAILY@0700,1900 Status: Active Target: 06/01/19 Protocol: Activity Type Activity Date Activity User E-Sign Co-Sign Detail Recorded Client Recorded Date Recorded By Document 05/26/19 07:00 [id number] 05/26/19 09:23 [id number] 05/26/19 07:00 PMRU Outcome: Coping/Psychosocial Current Coping Outcome/Goals Verbalization of Acceptance of Rehab Admit Verbalization of Sense of Control Over Health Status Utilization of Appropriate Problem Solving Techniques Willingness to Participate in Treatment Plan and Basic Needs Utilization of Available Support Systems Progression Toward Outcome/Goals Progressing Current Psychosocial Outcome/Goals Maintain/ Improve Emotional Health Demonstrates Knowledge of Healthy Coping Mechanisms Available Cooperate/ Participate in Plan Progression Toward Outcome/Goals Progressing DVT Prophylaxis- Improve/Maintain Start: 05/25/19 10:55 Freq: DAILY@0700,190 Status: Active Target: 06/01/19 Protocol: Activity Type Activity Date Activity User E-Sign Co-Sign Detail Recorded Client Recorded Date Recorded By Document 05/26/19 07:00 [id number] 05/26/19 09:23 [id number] 05/26/19 07:00 PMRU Outcome: DVT Prophylaxis Current DVT Outcome/Goals Remains Free of DVT Complies with DVT Prophylaxis /Treatment Demonstrates Knowledge of DVT Prevention/ Treatment Other DVT Other Outcome/Goals juliano wraps to be applied Progression Toward Outcome/Goals Progressing Discharge Planning - Improve/Maintain Start: 05/25/19 10:55 Freq: DAILY@0700,1900 Status: Active Target: 06/01/19 Protocol: Activity Type Activity Date Activity User E-Sign Co-Sign Detail Recorded Client Recorded Date Recorded By Document 05/26/19 07:00 [id number] 05/26/19 09:23 [id number] 05/26/19 07:00 PMRU Outcome: Discharge Planning Update Patient Family No: not present at time of admit Current Discharge Planning Outcome/Goals Demonstrates Understanding of Discharge Plan Homecare Referral - See Comment Progression Toward Outcome/Goals Progressing Education-Improve/Maintain Start: 05/25/19 10:55 Freq: DAILY@0700,1900 Status: Active Target: 06/01/19 Protocol: Activity Type Activity Date Activity User E-Sign Co-Sign Detail Recorded Client Recorded Date Recorded By Document 05/26/19 07:00 [id number] [email or web address] 05/26/19 09:23 [id number] 05/26/19 07:00 PMRU Outcome: Education Current Education Outcome/Goals Demonstrate/ Verbalize Understanding of Written Discharge Instructions Demonstrates Skills Encourage Questions Progression Toward Outcome/Goals Progressing /GI-Improve/Maintain Start: 05/25/19 10:55 Freq: DAILY@0700,1900 Status: Active Target: 06/01/19 Protocol: Activity Type Activity Date Activity User E-Sign Co-Sign Detail Recorded Client Recorded Date Recorded By Document 05/26/19 07:00 [id number] 05/26/19 09:23 [id number] 05/26/19 07:00 PMRU Outcome: Genitourinary/ Gastrointestinal Current Gastrointestinal Outcome/Goals Maintain/ Achieve Bowel Regularity in Accordance with Pt's Baseline Remain Free of Emesis Prevent Constipation Bowel Regularity at Home Laxatives as Ordered Bowel Program Progression Toward Outcome/Goals Progressing Current Genitourinary Outcome/Goals Maintain/ Achieve Adequate Urinary Output Remain Free of Hospital- Acquired UTI Progression Toward Outcome/Goals Progressing Medication Administration Start: 05/25/19 10:55 Freq: DAILY@699,1899 Status: Active Target: 06/01/19 Protocol: Activity Type Activity Date Activity User E-Sign Co-Sign Detail Recorded Client Recorded Date Recorded By Document 05/26/19 07:00 [id number] 05/26/19 09:23 [id number] 05/26/19 07:00 PMRU Outcome: Medication Administration Assess Patient Knowledge/Teach Med Yes Education for all Meds Current Criminal Records Technician Outcome/Goals Patient Independent with Medication Administration at Home Demonstrates Understanding Progression Towards Outcome/Goals Progressing Is Patient Going Home on Lovenox? No Neurological- Improve/Maintain Start: 05/25/19 10:55 Freq: DAILY@699,1900 Status: Active Target: 06/01/19 Protocol: Activity Type Activity Date Activity User E-Sign Co-Sign Detail Recorded Client Recorded Date Recorded By Document 05/26/19 07:00 [id number] [email or web address] 05/26/19 09:23 [id number] 05/26/19 07:00 PMRU Outcome: Neurological Weakness/Aphasia Weakness Left Side Current Neurological Outcome/Goals Improve Neurological Status Prevent Avoidable Neurological Decline Demonstrate Knowledge of Prevention/Tx of Neuro Disorders/ Complication Maintain/ Improve Strength/ROM Progression Toward Outcome/Goals Progressing Pain/Comfort- Improve/Maintain Start: 05/25/19 10:55 Freq: DAILY@699,1899 Status: Active Target: 06/01/19 Protocol: Activity Type Activity Date Activity User E-Sign Co-Sign Detail Recorded Client Recorded Date Recorded By Document 05/26/19 07:00 [id number] [email or web address] 05/26/19 09:23 [id number] 05/26/19 07:00 PMRU Outcome: Pain/Comfort Current Pain/Comfort Outcome/Goals Demonstrates Knowledge and Use of Available Comfort Measures Achieves Acceptable Comfort/Pain Level as Determined by Patient/Condit Maintain Comfort Level Allowing Patient to Fully Participate in Rehab Progression Toward Outcome/Goals Progressing Rec Therapy- Improve/Maintain Start: 05/25/19 16:43 Freq: DAILY@ Status: Active Target: 05/30/19 Protocol: Activity Type Activity Date Activity User E-Sign Co-Sign Detail Recorded Client Recorded Date Recorded By Document 05/25/19 16:44 [id number] 05/25/19 16:44 [id number] 05/25/19 16:44 PMRU Outcome: Recreation Therapy Current Rec Ther Outcome/Goals Complete Rec Therapy Assessment Meet with Patient Regularly for Support Encourage Leisure Involvement Progression Toward Outcome/Goals Goal Initiation Safety- Improve/Maintain Start: 05/25/19 10:53 Freq: DAILY@699,1899 Status: Active Target: 06/01/19 Protocol: Activity Type Activity Date Activity User E-Sign Co-Sign Detail Recorded Client Recorded Date Recorded By Document 05/26/19 07:00 [id number] 05/26/19 09:23 [id number] 05/26/19 07:00 PMRU Outcome: Safety Current Safety Outcome/Goals Remain Free of Injury or Harm Cooperates with Safety Measures for Least Restrictive Environment Prevent Falls/ Injury Progression Toward Outcome/Goals Progressing Skin- Improve/Maintain Start: 05/25/19 10:55 Freq: DAILY@699,1899 Status: Active Target: 06/01/19 Protocol: Activity Type Activity Date Activity User E-Sign Co-Sign Detail Recorded Client Recorded Date Recorded By Document 05/26/19 07:00 [id number] [email or web address] 05/26/19 09:23 [id number] 05/26/19 07:00 PMRU Outcome: Skin Skin Risk Level Mild Risk Skin Orders Turn/Position q2hr While in Bed Current Skin Outcome/Goals Maintain/ Improve Skin Integrity Other Skin Outcome/Goals stage 2 to l buttock Progression Toward Outcome/Goals Progressing - Interdisciplinary Staff Present Dovetail Machine Operator/Social Work Staff Present: Lupe Hodge LMSW Nursing Staff Present: Ines Aldridge RN OT Staff Present: Carmencita Montez PT Staff Present: Tabitha Turner ESOL INSTRUCTOR Staff Present: Rashad Orozco Medicine Note: Length of Stay: 2 weeks Anticipated Discharge Destination: Tentative Discharge Date: 06/09/19 Discharged to: home
[2019-05-26] MEDS: Acetaminophen TAB* 325 MG PO PRN (14:57)
--- NOTE | 2019-05-26 19:02 | PN ---
Progress Note Date of Service: 05/26/19 Note: SWATI CATES was visited. Therapy notes read and reviewed. He was discussed in interdisciplinary plan of care rounds. He will likely leave at a wheelchair level. I discussed with him sharma or intermittent cath. He will try intermittent cath starting this weekend. Current Medications: Active Medications Generic Name Dose Route Start Last Admin Trade Name Freq PRN Reason Stop Dose Admin Acetaminophen 650 mg 05/25/19 12:13 Tylenol Tab* PO Q6H PRN MILD PAIN or TEMP > 100.4 Amlodipine Besylate 10 mg 05/26/19 09:00 05/26/19 08:39 Norvasc Tab* PO 10 mg DAILY KRYSTAL Administration Dexamethasone 4 mg 05/25/19 15:00 05/26/19 15:30 Decadron Tab* PO 4 mg Q8H KRYSTAL Administration Docusate Sodium 100 mg 05/25/19 21:00 05/26/19 08:38 Colace Cap* PO 100 mg BID KRYSTAL Administration Lorazepam 0.5 mg 05/25/19 14:00 05/26/19 12:49 Ativan Tab(*) PO 0.5 mg Q6H PRN Administration ANXIETY Magnesium Hydroxide 30 ml 05/25/19 12:13 Milk Of Magnesia Liq* PO Q6H PRN CONSTIPATION Morphine Sulfate 15 mg 05/25/19 14:00 05/26/19 14:41 Ms Contin(*) PO 15 mg Q8H KRYSTAL Administration Ondansetron HCl 4 mg 05/25/19 14:00 05/26/19 12:50 Zofran Odt Tab* PO 4 mg Q6H PRN Administration NAUSEA Oxycodone HCl 5 mg 05/25/19 12:21 Roxycodone Tab* PO Q6H PRN PAIN - MODERATE Pantoprazole Sodium 40 mg 05/26/19 09:00 05/26/19 08:39 Protonix Tab* PO 40 mg DAILY KRYSTAL Administration Polyethylene Glycol/Electrolytes 17 gm 05/26/19 09:00 05/26/19 08:38 Miralax (17 Gm Dose Perfecto) PO 17 gm DAILY KRYSTAL Administration Senna 2 tab 05/25/19 21:00 05/25/19 19:36 Senokot 8.6 Mg Tab* PO Not Given BEDTIME KRYSTAL Vital Signs: Vital Signs Temp Pulse Resp BP Pulse Ox 97.7 F 96 16 140/88 96 03/06/20 17:53 05/26/19 17:53 05/26/19 17:53 05/26/19 17:53 05/26/19 17:53 Lab Results: Laboratory Results - last 24 hr 05/26/19 05/26/19 05/26/19 04:46 07:31 07:32 WBC 9.9 RBC 4.65 Hgb 15.7 Hct 47 MCV 100 H MCH 34 H MCHC 34 RDW 13 Plt Count 71 L MPV 7.4 Neut % (Auto) 94.1 Lymph % (Auto) 2.0 Blanco % (Auto) 3.9 Eos % (Auto) 0.0 Baso % (Auto) 0.0 Absolute Neuts (auto) 9.3 H Absolute Lymphs (auto) 0.2 L Absolute Monos (auto) 0.4 Absolute Eos (auto) 0.0 Absolute Basos (auto) 0.0 Absolute Nucleated RBC 0.0 Nucleated RBC % 0.1 Sodium 129 L Potassium TNP 5.0 Chloride 101 Carbon Dioxide 22 Anion Gap 6 BUN 45 H Creatinine 1.21 H Est GFR ( Amer) 75.1 Est GFR (Non-Af Amer) 62.0 BUN/Creatinine Ratio 37.2 H Glucose 167 H Calcium 8.1 L Total Bilirubin 0.70 AST TNP 14 ALT 33 Alkaline Phosphatase 37 Total Protein 5.9 L Albumin 3.1 L Globulin 2.8 Albumin/Globulin Ratio 1.1 Exam: GENERAL: In no distress LUNGS: Clear HEART: Reg rhythm ABDOMEN: Soft +BS EXTREMITIES: Decreased tone LEs NEUROLOGIC: Alert &oriented. Sensation decreased in legs. Muscle strength 2-3/5 in LEs Assessment/Plan: 1. 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 Metastatic melanoma: Brain mets with left hemorrhage: Speech therapy for cog work. WBRT 3. Neurogenic bladder: Sharma, will try ICP on Wednesday 4. Neurogenic Bowel: Will try suppository at 729 5. Analgesia: MS Contin 6. Advance Directives: DNR, has ANDREW, met with palliative care 7. DVT Prophylaxis: TEDyanelis. will see if we can start S/Q heparin 05/26/19 18:59 05/26/19 19:02
[2019-05-26] MEDS: Senna TAB 8.6 mg* TAB PO SCH (20:59)
[2019-05-27] MEDS: Morphine TAB Extended Release (*) 15 MG TAB.ER PO SCH ×3 (06:05→21:54)
[2019-05-27] MEDS: Dexamethasone TAB* 4 MG PO SCH ×3 (06:06→22:01)
[2019-05-27] MEDS: Docusate CAP* 100 MG PO SCH ×2 (10:37→21:55)
[2019-05-27] MEDS: amLODIPine TAB* 5 MG PO SCH (10:37)
[2019-05-27] MEDS: Pantoprazole TAB * 40 MG TAB PO SCH (10:37)
[2019-05-27] MEDS: Polyethylene Glycol 3350* 17 GM PACKET PO SCH (10:39)
--- NOTE | 2019-05-27 14:05 | PN ---
Progress Note Date of Service: 05/27/19 Note: SWTAI CATES was visited. Therapy notes read and reviewed. He has no complaints. Will d/c sharma in am and try intermittent catheterization Current Medications: Active Medications Generic Name Dose Route Start Last Admin Trade Name Freq PRN Reason Stop Dose Admin Acetaminophen 650 mg 05/25/19 12:13 Tylenol Tab* PO Q6H PRN MILD PAIN or TEMP > 100.4 Amlodipine Besylate 10 mg 05/26/19 09:00 05/27/19 10:37 Norvasc Tab* PO 10 mg DAILY KRYSTAL Administration Dexamethasone 4 mg 05/25/19 15:00 05/27/19 06:06 Decadron Tab* PO 4 mg Q8H KRYSTAL Administration Docusate Sodium 100 mg 05/25/19 21:00 05/27/19 10:37 Colace Cap* PO 100 mg BID KRYSTAL Administration Lorazepam 0.5 mg 05/25/19 14:00 05/26/19 22:28 Ativan Tab(*) PO 0.5 mg Q6H PRN Administration ANXIETY Magnesium Hydroxide 30 ml 05/25/19 12:13 Milk Of Magnesia Liq* PO Q6H PRN CONSTIPATION Morphine Sulfate 15 mg 05/25/19 14:00 05/27/19 06:05 Ms Contin(*) PO 15 mg Q8H KRYSTAL Administration Ondansetron HCl 4 mg 05/25/19 14:00 05/26/19 12:50 Zofran Odt Tab* PO 4 mg Q6H PRN Administration NAUSEA Oxycodone HCl 5 mg 05/25/19 12:21 Roxycodone Tab* PO Q6H PRN PAIN - MODERATE Pantoprazole Sodium 40 mg 05/26/19 09:00 05/27/19 10:37 Protonix Tab* PO 40 mg DAILY KRYSTAL Administration Polyethylene Glycol/Electrolytes 17 gm 05/26/19 09:00 05/27/19 10:39 Miralax (17 Gm Dose Perfecto) PO 17 gm DAILY KRYSTAL Administration Senna 2 tab 05/25/19 21:00 05/26/19 20:59 Senokot 8.6 Mg Tab* PO Not Given BEDTIME KRYSTAL Vital Signs: Vital Signs Temp Pulse Resp BP Pulse Ox 97.7 F 63 14 138/79 97 05/27/19 06:02 05/27/19 06:02 05/27/19 10:39 05/27/19 06:02 05/27/19 06:02 Exam: GENERAL: In no distress LUNGS: Clear HEART: Reg rhythm ABDOMEN: Soft +BS EXTREMITIES: Decreased tone LEs NEUROLOGIC: Alert &oriented. Sensation decreased in legs. Muscle strength 2-3/5 in LEs Assessment/Plan: 1. 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 Metastatic melanoma: Brain mets with left hemorrhage: Speech therapy for cog work. WBRT 3. Neurogenic bladder: d/c Sharma in am, will try ICP on Wednesday 4. Neurogenic Bowel: Will try suppository at 0730 5. Analgesia: MS Contin 6. Advance Directives: DNR, has MOLST, met with palliative care 7. DVT Prophylaxis: will see if we can start S/Q heparin 05/27/19 14:05
[2019-05-27] MEDS: Ondansetron ODT TAB* 4 MG PO PRN (14:43)
[2019-05-27] MEDS: Senna TAB 8.6 mg* TAB PO SCH (21:55)
[2019-05-28] MEDS: LORazepam TAB(*) 0.5 MG PO PRN ×2 (06:20→17:23)
[2019-05-28] MEDS: Dexamethasone TAB* 4 MG PO SCH ×3 (06:20→22:08)
[2019-05-28] MEDS: Morphine TAB Extended Release (*) 15 MG TAB.ER PO SCH ×3 (06:21→22:08)
[2019-05-28] MEDS: Polyethylene Glycol 3350* 17 GM PACKET PO SCH (09:30)
[2019-05-28] MEDS: amLODIPine TAB* 5 MG PO SCH (09:30)
[2019-05-28] MEDS: Docusate CAP* 100 MG PO SCH ×2 (09:30→22:08)
[2019-05-28] MEDS: Pantoprazole TAB * 40 MG TAB PO SCH (09:30)
--- NOTE | 2019-05-28 16:02 | PN ---
Progress Note Date of Service: 05/28/19 Note: SWATI CATES was visited. Nursing notes read and reviewed and the patient was discussed with the nursing staff. He is a bit depressed today and doesn't want to get out of bed. Current Medications: Active Medications Generic Name Dose Route Start Last Admin Trade Name Freq PRN Reason Stop Dose Admin Acetaminophen 650 mg 05/25/19 12:13 Tylenol Tab* PO Q6H PRN MILD PAIN or TEMP > 100.4 Amlodipine Besylate 10 mg 05/26/19 09:00 05/28/19 09:30 Norvasc Tab* PO 10 mg DAILY KRYSTAL Administration Bisacodyl 10 mg 05/28/19 07:30 05/28/19 11:33 Dulcolax Supp* HI Not Given 729 KRYSTAL Dexamethasone 4 mg 05/25/19 15:00 05/28/19 15:31 Decadron Tab* PO 4 mg Q8H KRYSTAL Administration Docusate Sodium 100 mg 05/25/19 21:00 05/28/19 09:30 Colace Cap* PO 100 mg BID KRYSTAL Administration Lorazepam 0.5 mg 05/25/19 14:00 05/28/19 06:20 Ativan Tab(*) PO 0.5 mg Q6H PRN Administration ANXIETY Magnesium Hydroxide 30 ml 05/25/19 12:13 05/28/19 09:30 Milk Of Magnesia Liq* PO 30 ml Q6H PRN Administration CONSTIPATION Morphine Sulfate 15 mg 05/25/19 14:00 05/28/19 14:20 Ms Contin(*) PO 15 mg Q8H KRYSTAL Administration Ondansetron HCl 4 mg 05/25/19 14:00 05/27/19 14:43 Zofran Odt Tab* PO 4 mg Q6H PRN Administration NAUSEA Oxycodone HCl 5 mg 05/25/19 12:21 Roxycodone Tab* PO Q6H PRN PAIN - MODERATE Pantoprazole Sodium 40 mg 05/26/19 09:00 05/28/19 09:30 Protonix Tab* PO 40 mg DAILY KRYSTAL Administration Polyethylene Glycol/Electrolytes 17 gm 05/26/19 09:00 05/28/19 09:30 Miralax (17 Gm Dose Perfecto) PO 17 gm DAILY KRYSTAL Administration Senna 2 tab 05/25/19 21:00 03/07/20 21:55 Senokot 8.6 Mg Tab* PO 2 tab BEDTIME KRYSTAL Administration Vital Signs: Vital Signs Temp Pulse Resp BP Pulse Ox 97.4 F 75 12 135/84 98 05/28/19 05:20 05/28/19 05:20 05/28/19 14:23 05/28/19 05:20 05/28/19 08:00 Exam: GENERAL: In no distress LUNGS: Clear HEART: Reg rhythm ABDOMEN: Soft +BS EXTREMITIES: Decreased tone LEs NEUROLOGIC: Alert &oriented. Sensation decreased in legs. Muscle strength 2-3/5 in LEs Assessment/Plan: 1. 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 Metastatic melanoma: Brain mets with left hemorrhage: Speech therapy for cog work. WBRT 3. Neurogenic bladder: d/c Connor ICP Q shift, note volumes, may have to increase to Q6H 4. Neurogenic Bowel: Will try suppository at 0730 5. Analgesia: MS Contin 6. Advance Directives: DNR, has MOLST, met with palliative care 7. DVT Prophylaxis: will see if we can start S/Q heparin 05/28/19 16:02
[2019-05-28] MEDS: Senna TAB 8.6 mg* TAB PO SCH (22:08)
[2019-05-29] MEDS: LORazepam TAB(*) 0.5 MG PO PRN ×3 (03:44→21:40)
[2019-05-29] MEDS: Dexamethasone TAB* 4 MG PO SCH ×3 (06:09→21:41)
[2019-05-29] MEDS: Morphine TAB Extended Release (*) 15 MG TAB.ER PO SCH ×3 (06:09→21:06)
[2019-05-29 07:50] LABS: CO2 Carbon Dioxide 18 mmol/L (22-32); Chloride 103 mmol/L (101-111); Sodium 130 mmol/L (135-145)
[2019-05-29 07:56] LABS: BUN/Creatinine Ratio 35.7 (8-20); Blood Urea Nitrogen 41 mg/dL (6-24); EGFR African American 79.6 (>60); EGFR Non-African American 65.8 (>60); Glucose 177 mg/dL (70-100)
[2019-05-29 08:02] LABS: Anion Gap 9 mmol/L (2-11)
[2019-05-29] MEDS: Docusate CAP* 100 MG PO SCH ×2 (08:36→21:06)
[2019-05-29] MEDS: Pantoprazole TAB * 40 MG TAB PO SCH (08:36)
[2019-05-29] MEDS: amLODIPine TAB* 5 MG PO SCH (08:36)
[2019-05-29] MEDS: Polyethylene Glycol 3350* 17 GM PACKET PO SCH (08:36)
--- NOTE | 2019-05-29 18:39 | PN ---
Progress Note Date of Service: 05/29/19 Note: SWATI CATES was visited. Therapy notes read and reviewed. He had a high volume PVR at 3 but had gone almost 11 hours since last SC. Will also work on teaching him how to self catheterize. Current Medications: Active Medications Generic Name Dose Route Start Last Admin Trade Name Freq PRN Reason Stop Dose Admin Acetaminophen 650 mg 05/25/19 12:13 Tylenol Tab* PO Q6H PRN MILD PAIN or TEMP > 100.4 Amlodipine Besylate 10 mg 05/26/19 09:00 05/29/19 08:36 Norvasc Tab* PO 10 mg DAILY KRYSTAL Administration Bisacodyl 10 mg 05/28/19 07:30 05/29/19 08:42 Dulcolax Supp* HI Not Given 0730 KRYSTAL Dexamethasone 4 mg 05/25/19 15:00 05/29/19 14:50 Decadron Tab* PO 4 mg Q8H KRYSTAL Administration Docusate Sodium 100 mg 05/25/19 21:00 05/29/19 08:36 Colace Cap* PO 100 mg BID KRYSTAL Administration Lorazepam 0.5 mg 05/25/19 14:00 05/29/19 15:15 Ativan Tab(*) PO 0.5 mg Q6H PRN Administration ANXIETY Magnesium Hydroxide 30 ml 05/25/19 12:13 05/28/19 09:30 Milk Of Magnesia Liq* PO 30 ml Q6H PRN Administration CONSTIPATION Morphine Sulfate 15 mg 05/25/19 14:00 05/29/19 14:50 Ms Contin(*) PO 15 mg Q8H KRYSTAL Administration Ondansetron HCl 4 mg 05/25/19 14:00 05/27/19 14:43 Zofran Odt Tab* PO 4 mg Q6H PRN Administration NAUSEA Oxycodone HCl 5 mg 05/25/19 12:21 Roxycodone Tab* PO Q6H PRN PAIN - MODERATE Pantoprazole Sodium 40 mg 05/26/19 09:00 05/29/19 08:36 Protonix Tab* PO 40 mg DAILY KRYSTAL Administration Polyethylene Glycol/Electrolytes 17 gm 05/26/19 09:00 05/29/19 08:36 Miralax (17 Gm Dose Perfecto) PO 17 gm DAILY KRYSTAL Administration Senna 2 tab 05/25/19 21:00 05/28/19 22:08 Senokot 8.6 Mg Tab* PO 2 tab BEDTIME KRYSTAL Administration Vital Signs: Vital Signs Temp Pulse Resp BP Pulse Ox 97.4 F 88 18 137/84 93 05/29/19 15:40 05/29/19 15:40 05/29/19 17:40 05/29/19 15:40 05/29/19 17:44 Lab Results: Laboratory Results - last 24 hr 05/29/19 05/29/19 07:28 09:13 Sodium 130 L Potassium TNP 5.2 H Chloride 103 Carbon Dioxide 18 L Anion Gap 9 BUN 41 H Creatinine 1.15 Est GFR ( Amer) 79.6 Est GFR (Non-Af Amer) 65.8 BUN/Creatinine Ratio 35.7 H Glucose 177 H Calcium 8.0 L Exam: GENERAL: In no distress LUNGS: Clear HEART: Reg rhythm ABDOMEN: Soft +BS EXTREMITIES: Decreased tone LEs NEUROLOGIC: Alert &oriented. Sensation decreased in legs. Muscle strength 2-3/5 in LEs Assessment/Plan: 1. 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 Metastatic melanoma: Brain mets with left hemorrhage: Speech therapy for cog work. WBRT to finish tomorrow 3. Neurogenic bladder: d/c Connor ICP Q shift, note volumes, may have to increase to Q6H 4. Neurogenic Bowel: Will try suppository at 0730 5. Analgesia: MS Contin 6. Advance Directives: DNR, jadyn MORALES, met with palliative care 7. DVT Prophylaxis: Haile. will see if we can start S/Q heparin 05/29/19 18:40
[2019-05-29] MEDS: Senna TAB 8.6 mg* TAB PO SCH (21:06)
[2019-05-30] MEDS: Morphine TAB Extended Release (*) 15 MG TAB.ER PO SCH ×2 (05:48→20:03)
[2019-05-30] MEDS: LORazepam TAB(*) 0.5 MG PO PRN ×2 (05:48→19:20)
[2019-05-30] MEDS: Dexamethasone TAB* 4 MG PO SCH ×3 (06:43→23:47)
[2019-05-30] MEDS: Pantoprazole TAB * 40 MG TAB PO SCH (08:16)
[2019-05-30] MEDS: amLODIPine TAB* 5 MG PO SCH (08:16)
[2019-05-30] MEDS: Polyethylene Glycol 3350* 17 GM PACKET PO SCH (10:15)
[2019-05-30] MEDS: Docusate CAP* 100 MG PO SCH ×2 (10:15→20:02)
[2019-05-30] MEDS: Ondansetron ODT TAB* 4 MG PO PRN ×2 (11:07→17:37)
--- NOTE | 2019-05-30 12:48 | PMRUTEAM ---
PMRU: Team Meeting Current Status: Physical Therapy: Current Status Current Rolling Status Partial/Moderate Current Supine <-> Sit Status Partial/Moderate Current Sit <-> Stand Status Dependent Current Bed <-> Chair Status Dependent Transfer/Bed Mobility KELLY Recommended Devices Current Picking Up Object Dependent Status Current Car Transfer Status Dependent Current Ambulation Assistance Not attempted Status Manual Wheelchair Control/ Bilateral UE's Technique Current Wheelchair Propulsion Independent Ability Status Wheelchair Distance (ft) 150' Current Stair Climbing Status Not attempted Current Curb Assistance Status Not attempted Objective Comments Pt able to independently manage B brakes, requiring min Ax1 for BLE leg rests due to LE weakness and assist with positioning. Occupational Therapy: Current Status Current Upper Body Dressing Setup or Clean-up Assist Status Current Lower Body Dressing Dependent Status Current Footwear Status Dependent Current Bathing Status Partial/Moderate Current Grooming Status Setup or Clean-up Assist Current Toileting Status Dependent Toileting Progress totalA in KELLY Current Toilet Transfer Status Dependent Toilet Transfer Progress KELLY Current Eating Status Independent Nursing: Current Status Skin Deviations [Left Buttocks Pressure Ulcer ] Skin Deviation Description [ stage 2 Left Buttocks] Wound Stage [Left Buttocks] II Bladder Current Status dependent/straight cath Bowel Current Status dependent/incontinent Nutrition Current Status 100% eaten Medication Current Status dependent Rec Therapy: Current Status Summary of Assessment and Recreation therapy assessment complete and pt is Clinical Impression aware of services. Pt shared that he will be having family and friends visiting often, but was open to continued leisure visits, when available, and pet therapy. Treatment Goals Pt will engaged in lesiure activities while on the unit, as tolerated. Treatment Plan Provide recreation therapy services and encourage involvement. Social Work: Current Status Discharge Plan return home with home care svs and family support Potential for Family Training pt's is involved and supportive Anticipated Discharge Home Destination Discharge With home care svs and family support Nutrition: Current Status Monitoring Pt continues to receive regular diet w/pureed textures. Per SPINNING BATH PERSON, pt also able to have mandarin oranges, crackers and muffins as well. Good intake at meals (75-100%) last few days, though w/ some nausea this a.m., so declined breakfast (Zofran given). Daily BMs since 05/27. Pt receives Nepro once daily to supplement po intake; has increased calorie needs r/t skin breakdown, but anticipate pt able to meet estimated needs. May need to consider K restriction given mild hyperkalemia - will follow future labs. Speech: Current Status Assessment Patient is progressing as expected. SPINNING BATH PERSON administered the following Tasks of the Cognitive-Linguistic Quick Test: 05/27/19 Personal facts: 10/27, WNL Symbol Cancelation: 03/01, WNL Confrontational Namin/10, WNL Clock Drawin/12, WNL 05/29/19 Story Retellin/6, Below criterion Symbol Trails: 8/, Below criterion Generartive Namin/5, Below criterion SPINNING BATH PERSON will report Composite Severity Rating upon completion of 3 more Tasks. Patient demonstrated prolonged but adequate mastication and oral transit of soft solid textures, and is requesting some preferred soft solid items. SPINNING BATH PERSON recommends modification to diet texture order, and has communicated to provider, dietary and replenishment associate: 1) Soft solid texture, with extra sauces and gravies 2) Thin liquids, straws OK Please send meals Pureed by default, as per patient request to ensure adequate nutrition without fatigue, but allow patient to request any soft texture item he likes. Patient would like at least these items soft not pureed: somali toast with extra syrup, muffins, cakes, mandarin oranges . Goals: Physical Therapy: Goals Goals to Be Accomplished in ( 10-14 Days) Goal: Rolling Assistance Independent Goal Supine <-> Sit Status Independent Goal Sit <-> Stand Status Partial/Moderate Goal Bed <-> Chair Status Partial/Moderate Transfer/Bed Mobility Slide Board Recommended Devices Goal: Picking Up Object Partial/Moderate Goal: Car Transfer Status Partial/Moderate Goal: Ambulation Assistance Partial/Moderate Ambulation Assistive Devices Rolling Walker Ambulation Distance (ft) 50' Goal: Wheelchair Propulsion Independent Ability Wheelchair Distance (ft) 300' Goal: Stairs Assistance Partial/Moderate Stairs Recommended Devices One Rail Number of Stairs 1 Goal: Curb Assistance Partial/Moderate Goal: Home Exercise Program Independent Assistance Occupational Therapy: Goals Goals to be Completed in (Days 7-14 Days ) Goal Upper Body Dressing Setup or Clean-up Assist Routine Goal Lower Body Dressing Partial/Moderate Routine Goal Footwear Status Setup or Clean-up Assist Goal Bathing Routine (OT) Partial/Moderate Goal Grooming Routine Setup or Clean-up Assist Goal Toilet Hygiene and Partial/Moderate Clothing Management Routine Goal Toilet Transfer Routine Supervision/Touching Goal Functional Transfers for Supervision/Touching ADL Goal Feeding Routine Independent Goal Light Housekeeping Tasks Partial/Moderate Nutrition: Goals Intervention Goals 1. Tolerates least-restrictive texture w/o difficulty chewing/swallowing. 2. Maintains adequate oral intake to support maintenance of lean body mass w/o contributing to undesirable weight gain. 3. Maintains K WNL. 4. Signs of resolution of skin issue and no evidence of further breakdown. Speech: Goals Speech Goal 1 Swallowing Goal 1 Comments Long-Term Goal: Patient will I'ly follow precautions to tolerate least restrictive diet consistencies w/ no complications from aspiration. Short Term Goals: 1) STG: Patient will demonstrate and follow swallowing exercises and compensatory strategies, to tolerate mechanocal/ground soft diet consistency w/ adequate rotary mastication and and oral transit, and no clinical s/s aspiration, Independently Status: Progressing as expected. Patient demonstrated prolonged but adequate mastication and oral transit of soft solid texture muffin, and is requesting some preferred soft solid items. Speech Goal 2 Problem Solving Speech Goal 2 Comments Problem Solving Goal: Long-Term Goal: Pt will use compensatory strategies to solve moderately complex routine problems, for transfer and mobility safety, adaptive dressing, time and money management; with 100% accuracy, Independently. Problem Solving Goal: Short-Term: Pt will use compensatory strategies to solve simple routine problems, for transfer and mobility safety, adaptive dressing, time and money management; with 80% accuracy, given skilled instruction, Moderate cueing, and extra time. Status: Progressing as expected. SPINNING BATH PERSON will report Composite Severity Rating upon completion of the Cognitive-Linguistic Quick Test. Social Work: Goals Discharge Plan return home with home care svs and family support Potential for Family Training pt's is involved and supportive Anticipated Discharge Home Destination Discharge With home care svs and family support Nursing: Goals Bladder Goal independent Bowel Goal independent Nutrition Goal continue 100% meals eaten Medication Goal independent Care Plan: Care Plan ADL's - Improve/Maintain Start: 05/26/19 14:26 Freq: DAILY@[id number],1900 Status: Active Target: 05/27/19 Protocol: Activity Type Activity Date Activity User E-Sign Co-Sign Detail Recorded Client Recorded Date Recorded By Document 05/30/19 11:22 [id number] 05/30/19 11:22 [id number] 05/30/19 11:22 PMRU Outcome: ADL's/ADL Transfers Orders/Interventions Occupational Therapy Evaluation & Treatment Communication Tool in Patient Room Device Yes Address Deficits Secondary To: cauda equina, ICH Patient to receive OT 5x/wk for 60-120 Therex min/day Self Care Management Group Therapy Neuromuscular ReEducation UE/LE ADL's with Assist Yes: Vira ADL Transfers with Assist Yes: Vira Toileting: Transfers,Clothing Management Yes: Vira ,Hygeine w/Assist Light Kitchen/Laundry w/Assist No Other Outcome/Goals Pt participated well in session, able to take both hands to wash hair in shower and maintain sitting balance without any LOB, which is improved from last shower with this junior underwriter. Progression Toward Outcome/Goals Progressing Communication-Improve/Maintain Start: 05/27/19 10:46 Freq: [id number] Status: Active Target: 06/06/19 Protocol: Activity Type Activity Date Activity User E-Sign Co-Sign Detail Recorded Client Recorded Date Recorded By Document 05/30/19 07:00 [id number] 05/30/19 10:42 [id number] 05/30/19 07:00 PMRU Outcome: Communication/Cognitive Status Current Communication Outcome/Goals Use Comm Tools/ Devices Makes Needs Known Effectively Progression Toward Outcomes/Goals Progressing Coping/Psych-Improve/Maintain Start: 05/25/19 10:55 Freq: [id number]@[id number] Status: Active Target: 06/06/19 Protocol: Activity Type Activity Date Activity User E-Sign Co-Sign Detail Recorded Client Recorded Date Recorded By Document 05/30/19 07:00 [id number] 05/30/19 10:42 [id number] 05/30/19 07:00 PMRU Outcome: Coping/Psychosocial Current Coping Outcome/Goals Verbalization of Acceptance of Rehab Admit Verbalization of Sense of Control Over Health Status Utilization of Appropriate Problem Solving Techniques Willingness to Participate in Treatment Plan and Basic Needs Utilization of Available Support Systems Progression Toward Outcome/Goals Progressing Current Psychosocial Outcome/Goals Maintain/ Improve Emotional Health Demonstrates Knowledge of Healthy Coping Mechanisms Available Cooperate/ Participate in Plan Progression Toward Outcome/Goals Progressing DVT Prophylaxis- Improve/Maintain Start: 05/25/19 10:55 Freq: [id number]@[id number] Status: Active Target: 06/06/19 Protocol: Activity Type Activity Date Activity User E-Sign Co-Sign Detail Recorded Client Recorded Date Recorded By Document 05/30/19 07:00 [id number] 05/30/19 10:42 [id number] 05/30/19 07:00 PMRU Outcome: DVT Prophylaxis Current DVT Outcome/Goals Remains Free of DVT Complies with DVT Prophylaxis /Treatment Demonstrates Knowledge of DVT Prevention/ Treatment Progression Toward Outcome/Goals Progressing Discharge Planning - Improve/Maintain Start: 05/25/19 10:55 Freq: [id number] Status: Active Target: 06/06/19 Protocol: Activity Type Activity Date Activity User E-Sign Co-Sign Detail Recorded Client Recorded Date Recorded By Document 05/30/19 07:00 [id number] [id number] 05/30/19 10:42 [id number] 05/30/19 07:00 PMRU Outcome: Discharge Planning Update Patient Family No: not present at this time Current Discharge Planning Outcome/Goals Demonstrates Understanding of Discharge Plan Homecare Referral - See Comment Progression Toward Outcome/Goals Progressing Education-Improve/Maintain Start: 05/25/19 10:55 Freq: [id number]@[id number] Status: Active Target: 06/06/19 Protocol: Activity Type Activity Date Activity User E-Sign Co-Sign Detail Recorded Client Recorded Date Recorded By Document 05/30/19 07:00 [id number] 05/30/19 10:42 [id number] 05/30/19 07:00 PMRU Outcome: Education Current Education Outcome/Goals Demonstrate/ Verbalize Understanding of Written Discharge Instructions Demonstrates Skills Encourage Questions Progression Toward Outcome/Goals Progressing /GI-Improve/Maintain Start: 05/25/19 10:55 Freq: DAILY@[id number] Status: Active Target: 06/06/19 Protocol: Activity Type Activity Date Activity User E-Sign Co-Sign Detail Recorded Client Recorded Date Recorded By Document 05/30/19 07:00 [id number] 05/30/19 10:42 [id number] 05/30/19 07:00 PMRU Outcome: Genitourinary/ Gastrointestinal Current Gastrointestinal Outcome/Goals Maintain/ Achieve Bowel Regularity in Accordance with Pt's Baseline Remain Free of Emesis Prevent Constipation Bowel Regularity at Home Laxatives as Ordered Progression Toward Outcome/Goals Progressing Current Genitourinary Outcome/Goals Maintain/ Achieve Adequate Urinary Output Remain Free of Hospital- Acquired UTI Progression Toward Outcome/Goals Progressing Medication Administration Start: 05/25/19 10:55 Freq: DAILY@[id number] Status: Active Target: 06/06/19 Protocol: Activity Type Activity Date Activity User E-Sign Co-Sign Detail Recorded Client Recorded Date Recorded By Document 05/30/19 07:00 [id number] 05/30/19 10:42 [id number] 05/30/19 07:00 PMRU Outcome: Medication Administration Assess Patient Knowledge/Teach Med Yes Education for all Meds Current Wash Driller Outcome/Goals Patient Independent with Medication Administration at Home Demonstrates Understanding Progression Towards Outcome/Goals Progressing Is Patient Going Home on Lovenox? No Mobility- Improve/Maintain Start: 05/26/19 17:12 Freq: DAILY@ Status: Active Target: 05/27/19 Protocol: Activity Type Activity Date Activity User E-Sign Co-Sign Detail Recorded Client Recorded Date Recorded By Document 05/26/19 17:13 [id number] [email or web address] 05/26/19 17:13 [id number] 05/26/19 17:13 PMRU Outcome: Mobility Physical Therapy Evaluation and Yes Treatment Activity OOB with Assistance Yes WBAT Yes NWB No TTWB No Device Yes Assistance Yes Patient to be seen 5x/wk for 60-120 min/ Therex day for: Mobility Training Gait Training W/C Mobility Balance Other Other Therapy Comment Discharge training/ discharge planning Current Mobility Outcome/Goals Maintain/ Achieve Baseline Mobility Status Improve Mobility Status Demonstrates Proper Use of Assistive Devices Free from Complications of Immobility Progression Toward Outcome/Goals Progressing Bed Mobility Yes: Independent Transfers Yes: Min A with LRD Gait x ft Yes: 25' Min A with RW W/C Mobility x ft Yes: 300' Independent Up/Down Stairs No: Ramp installed to enter/exit the home With HEP Yes: Independent Neurological- Improve/Maintain Start: 05/25/19 10:55 Freq: DAILY@ Status: Active Target: 06/06/19 Protocol: Activity Type Activity Date Activity User E-Sign Co-Sign Detail Recorded Client Recorded Date Recorded By Document 05/30/19 07:00 [id number] 05/30/19 10:42 [id number] 05/30/19 07:00 PMRU Outcome: Neurological Weakness/Aphasia Weakness Left Side Current Neurological Outcome/Goals Maintain/ Achieve Baseline Neurological Status Improve Neurological Status Prevent Avoidable Neurological Decline Demonstrate Knowledge of Prevention/Tx of Neuro Disorders/ Complication Maintain/ Improve Strength/ROM Progression Toward Outcome/Goals Progressing Pain/Comfort- Improve/Maintain Start: 05/25/19 10:55 Freq: DAILY@[id number] Status: Active Target: 06/06/19 Protocol: Activity Type Activity Date Activity User E-Sign Co-Sign Detail Recorded Client Recorded Date Recorded By Document 05/30/19 07:00 [id number] 05/30/19 10:42 [id number] 05/30/19 07:00 PMRU Outcome: Pain/Comfort Current Pain/Comfort Outcome/Goals Demonstrates Knowledge and Use of Available Comfort Measures Achieves Acceptable Comfort/Pain Level as Determined by Patient/Condit Maintain Comfort Level Allowing Patient to Fully Participate in Rehab Progression Toward Outcome/Goals Progressing Rec Therapy- Improve/Maintain Start: 05/25/19 16:43 Freq: DAILY@[id number] Status: Active Target: 05/30/19 Protocol: Activity Type Activity Date Activity User E-Sign Co-Sign Detail Recorded Client Recorded Date Recorded By Document 05/25/19 16:44 [id number] 05/25/19 16:44 [id number] 05/25/19 16:44 PMRU Outcome: Recreation Therapy Current Rec Ther Outcome/Goals Complete Rec Therapy Assessment Meet with Patient Regularly for Support Encourage Leisure Involvement Progression Toward Outcome/Goals Goal Initiation Safety- Improve/Maintain Start: 05/25/19 10:53 Freq: DAILY@[id number] Status: Active Target: 06/06/19 Protocol: Activity Type Activity Date Activity User E-Sign Co-Sign Detail Recorded Client Recorded Date Recorded By Document 05/30/19 07:00 [id number] [email or web address] 05/30/19 10:42 [id number] 05/30/19 07:00 PMRU Outcome: Safety Current Safety Outcome/Goals Remain Free of Injury or Harm Cooperates with Safety Measures for Least Restrictive Environment Prevent Falls/ Injury Progression Toward Outcome/Goals Progressing Skin- Improve/Maintain Start: 05/25/19 10:55 Freq: DAILY@[id number] Status: Active Target: 06/06/19 Protocol: Activity Type Activity Date Activity User E-Sign Co-Sign Detail Recorded Client Recorded Date Recorded By Document 05/30/19 07:00 [id number] 05/30/19 10:42 [id number] 05/30/19 07:00 PMRU Outcome: Skin Skin Risk Level Moderate Risk Skin Orders Heels Off Bed Turn/Position q2hr While in Bed Current Skin Outcome/Goals Maintain/ Improve Skin Integrity Maintain/ Improve Wound Status Progression Toward Outcome/Goals Progressing - Interdisciplinary Staff Present Globe Tester/Social Work Staff Present: Lupe Hodge LMSW Nursing Staff Present: Ines Aldridge RN OT Staff Present: Carmencita Montez PT Staff Present: Hari Wiseman PTA SPINNING BATH PERSON Staff Present: Rashad Orozco Medicine Note: Length of Stay: 10 days Anticipated Discharge Destination: Home Tentative Discharge Date: 06/09/19 Discharged to: home
[2019-05-30] MEDS: Acetaminophen TAB* 325 MG PO PRN (15:56)
--- NOTE | 2019-05-30 16:26 | CONSULT ---
Subjective Date of Service: 05/30/19 Interval History: Mr. Temple is a 54 yo male with PMH significant for HTN and metastatic melanoma ; who is admitted to the inpatient rehab unit for malignant melanoma and brain metastasis with intra-axial hemorrhage. Pt noted to develop an open area to the left buttock during his acute hospital stay, prior to transfer to inpatient rehab. This is being treated with barrier cream. Patient seen and examined at bedside. Verbal consent for wound consultation and photographs. Family History: Unchanged from Admission Social History: Unchanged from Admission Past Medical History: Unchanged from Admission Review of Systems - Measurements Intake and Output: Intake and Output Last 24 Hours 05/28/19 05/29/19 05/30/19 05/31/19 06:59 06:59 06:59 06:59 Intake Total 840 240 380 Output Total 850 1475 Balance -10 -1235 380 Intake: Oral 840 240 380 Output: Urine 500 Connor Straight Cath 350 1475 Other: # Bowel Movements 1 1 1 Estimated Stool Amount Large Large Large - Review of Systems Constitutional Symptoms: Negative: Fever, Other - Chills Dermatology: Positive: Other - Open area to buttocks Neurology: Positive: Headache Objective Active Medications: Acetaminophen (Tylenol Tab*) 650 mg PO Q6H PRN Reason: MILD PAIN or TEMP > 100.4 Amlodipine Besylate (Norvasc Tab*) 10 mg PO DAILY KRYSTAL Bisacodyl (Dulcolax Supp*) 10 mg [place] 0730 KRYSTAL Dexamethasone (Decadron Tab*) 4 mg PO Q8H KRYSTAL Docusate Sodium (Colace Cap*) 100 mg PO BID KRYSTAL Lorazepam (Ativan Tab(*)) 0.5 mg PO Q6H PRN Reason: ANXIETY Magnesium Hydroxide (Milk Of Magnesia Liq*) 30 ml PO Q6H PRN Reason: CONSTIPATION Morphine Sulfate (Ms Contin(*)) 15 mg PO Q12H KRYSTAL Ondansetron HCl (Zofran Odt Tab*) 4 mg PO Q6H PRN Reason: NAUSEA Oxycodone HCl (Roxycodone Tab*) 5 mg PO Q6H PRN Reason: PAIN - MODERATE Pantoprazole Sodium (Protonix Tab*) 40 mg PO DAILY KRYSTAL Polyethylene Glycol/Electrolytes (Miralax (17 Gm Dose Perfecto)) 17 gm PO DAILY KRYSTAL Senna (Senokot 8.6 Mg Tab*) 2 tab PO BEDTIME KRYSTAL Vital Signs - 8 hr 05/30/19 16:00 Temperature 97.3 F Pulse Rate 59 Respiratory 22 Rate Blood Pressure 156/78 (mmHg) O2 Sat by Pulse 96 Oximetry Oxygen Devices in Use Now: None Appearance: NAD, laying in bed Ears/Nose/Mouth/Throat: Mucous Membranes Moist Respiratory: Symmetrical Chest Expansion and Respiratory Effort Skin: - - See skin note below Neurological: Alert and Oriented x 3 Nutrition: Taking PO's Result Diagrams: 06/02/19 06:34 06/02/19 06:34 Additional Lab and Data: Above labs were pulled into the chart, when the note was edited prior to signing. See below for labs from day of consultation. Laboratory Tests 05/26/19 05/26/19 05/29/19 04:46 07:31 07:28 WBC 9.9 Hgb 15.7 Hct 47 Plt Count 71 L Sodium 130 L Chloride 103 Carbon Dioxide 18 L BUN 41 H Creatinine 1.15 Glucose 177 H Total Protein 5.9 L Albumin 3.1 L 05/29/19 09:13 Potassium 5.2 H Skin Deviation Note - Skin Deviation Findings Buttocks - There is an open area to the left buttock, measures 0.7 cm x 1 cm x 0.1 cm. The wound base is pink granulation tissue. There is scant drainage. The surrounding skin is intact. There is blanchable erythema to the right buttock. Wound Problem/Plan Assessment: Mr. Temple is a 54 yo male with PMH significant for HTN and metastatic melanoma ; who is admitted to the inpatient rehab unit for malignant melanoma and brain metastasis with intra-axial hemorrhage. During his acute hospitalization he was noted to have an open area to the left buttock. 1. Stage 2 pressure injury, left buttock. Recommend frequent turning and repositioning. Apply barrier cream (orange top) to the area. Use a friction reduction device to move in bed. Will add a pre-albumin to the last labs. 2. Metastatic melanoma. Now with brain metastasis and intra-axial hemorrhage. 3. Nutrition. Recommend meeting minimal nutrition requirements to assist with wound healing (Protein 1.3-1.5 gram/kg per day and Calories 30-35 kcal/kg per day). Regular, soft diet. 4. Code Status. DNR. 5. Disposition. Inpatient, disposition per primary team. TIME SPENT: Time for this wound consultation was 25 minutes was 15 minutes was spent with the patient discussing past medial history; assessing, measuring, and photographing the wound; providing incontinence care; applying barrier cream ; and repositioning the patient. Is Patient a Wound Clinic Patient: No Attending: Aniya Grossman
[2019-05-30] MEDS: oxyCODONE TAB* 5 MG TAB PO PRN (17:38)
--- NOTE | 2019-05-30 17:51 | PN ---
Progress Note Date of Service: 05/30/19 Note: SWATI CATES was visited. Therapy notes read and reviewed. He was discussed in interdisciplinary team rounds. He was feeling snowed by MS Fink so it was cut back to Q12 H. He now feels like he is having more pain. Will monitor. Also, finished WBRT today Current Medications: Active Medications Generic Name Dose Route Start Last Admin Trade Name Freq PRN Reason Stop Dose Admin Acetaminophen 650 mg 05/25/19 12:13 05/30/19 15:56 Tylenol Tab* PO 650 mg Q6H PRN Administration MILD PAIN or TEMP > 100.4 Amlodipine Besylate 10 mg 05/26/19 09:00 05/30/19 08:16 Norvasc Tab* PO 10 mg DAILY KRYSTAL Administration Bisacodyl 10 mg 05/28/19 07:30 05/30/19 07:30 Dulcolax Supp* [place] 10 mg 0730 KRYSTAL Administration Dexamethasone 4 mg 05/25/19 15:00 05/30/19 14:29 Decadron Tab* PO 4 mg Q8H KRYSTAL Administration Docusate Sodium 100 mg 05/25/19 21:00 05/30/19 10:15 Colace Cap* PO 100 mg BID KRYSTAL Administration Lorazepam 0.5 mg 05/25/19 14:00 05/30/19 05:48 Ativan Tab(*) PO 0.5 mg Q6H PRN Administration ANXIETY Magnesium Hydroxide 30 ml 05/25/19 12:13 05/28/19 09:30 Milk Of Magnesia Liq* PO 30 ml Q6H PRN Administration CONSTIPATION Morphine Sulfate 15 mg 05/30/19 20:00 Ms Fink(*) PO Q12H KRYSTAL Ondansetron HCl 4 mg 05/25/19 14:00 05/30/19 17:37 Zofran Odt Tab* PO 4 mg Q6H PRN Administration NAUSEA Oxycodone HCl 5 mg 05/25/19 12:21 05/30/19 17:38 Roxycodone Tab* PO 5 mg Q6H PRN Administration PAIN - MODERATE Pantoprazole Sodium 40 mg 05/26/19 09:00 05/30/19 08:16 Protonix Tab* PO 40 mg DAILY KRYSTAL Administration Polyethylene Glycol/Electrolytes 17 gm 05/26/19 09:00 05/30/19 10:15 Miralax (17 Gm Dose Perfecto) PO 17 gm DAILY KRYSTAL Administration Senna 2 tab 05/25/19 21:00 05/29/19 21:06 Senokot 8.6 Mg Tab* PO 2 tab BEDTIME KRYSTAL Administration Vital Signs: Vital Signs Temp Pulse Resp BP Pulse Ox 97.3 F 59 20 156/78 96 05/30/19 16:00 05/30/19 16:00 05/30/19 17:38 05/30/19 16:00 05/30/19 16:00 Exam: GENERAL: In no distress LUNGS: Clear HEART: Reg rhythm ABDOMEN: Soft +BS EXTREMITIES: Decreased tone LEs NEUROLOGIC: Alert &oriented. Sensation decreased in legs. Muscle strength 2-3/5 in LEs Assessment/Plan: 1. 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 Metastatic melanoma: Brain mets with left hemorrhage: Speech therapy for cog work. WBRT finished 3. Neurogenic bladder: d/c Connor ICP Q shift, note volumes, may have to increase to Q6H 4. Neurogenic Bowel: Will try suppository at 0730 5. Analgesia: MS Contin 6. Advance Directives: DNR, has MOL, met with palliative care 7. DVT Prophylaxis: Haile. will see if we can start S/Q heparin 05/30/19 17:52
[2019-05-30] MEDS: Senna TAB 8.6 mg* TAB PO SCH (20:02)
[2019-05-31] MEDS: LORazepam TAB(*) 0.5 MG PO PRN (03:36)
[2019-05-31] MEDS: Ondansetron ODT TAB* 4 MG PO PRN ×3 (03:58→18:09)
[2019-05-31] MEDS: Dexamethasone TAB* 4 MG PO SCH ×3 (06:44→23:54)
[2019-05-31] MEDS: amLODIPine TAB* 5 MG PO SCH (09:45)
[2019-05-31] MEDS: Morphine TAB Extended Release (*) 15 MG TAB.ER PO SCH ×2 (09:45→18:09)
[2019-05-31] MEDS: Pantoprazole TAB * 40 MG TAB PO SCH (09:45)
[2019-05-31] MEDS: Docusate CAP* 100 MG PO SCH ×2 (10:10→21:17)
[2019-05-31] MEDS: Polyethylene Glycol 3350* 17 GM PACKET PO SCH (10:10)
--- NOTE | 2019-05-31 17:46 | PN ---
Progress Note Date of Service: 05/31/19 Note: SWATI CATES was visited. Therapy notes read and reviewed. Patient had increasing headache this morning and more right arm weakness. CT scan of brain reveled new hemorrhage within brain met on left side. Spoke with oncology. He has had WBRT and there is not much more to do. Therapy will concentrate on family training and we will work on a bowel program to get him home. Rad Onc will taper decadron Current Medications: Active Medications Generic Name Dose Route Start Last Admin Trade Name Freq PRN Reason Stop Dose Admin Acetaminophen 650 mg 05/25/19 12:13 05/30/19 15:56 Tylenol Tab* PO 650 mg Q6H PRN Administration MILD PAIN or TEMP > 100.4 Amlodipine Besylate 10 mg 05/26/19 09:00 05/31/19 09:45 Norvasc Tab* PO 10 mg DAILY KRYSTAL Administration Bisacodyl 10 mg 05/28/19 07:30 05/31/19 10:10 Dulcolax Supp* [place] 10 mg 0730 KRYSTAL Administration Dexamethasone 4 mg 05/25/19 15:00 05/31/19 15:36 Decadron Tab* PO 4 mg Q8H KRYSTAL Administration Docusate Sodium 100 mg 05/25/19 21:00 05/31/19 10:10 Colace Cap* PO 100 mg BID KRYSTAL Administration Lorazepam 0.5 mg 05/25/19 14:00 05/31/19 03:36 Ativan Tab(*) PO 0.5 mg Q6H PRN Administration ANXIETY Magnesium Hydroxide 30 ml 05/25/19 12:13 05/28/19 09:30 Milk Of Magnesia Liq* PO 30 ml Q6H PRN Administration CONSTIPATION Morphine Sulfate 15 mg 05/30/19 20:00 05/31/19 09:45 Ms Contin(*) PO 15 mg Q12H KRYSTAL Administration Ondansetron HCl 4 mg 05/25/19 14:00 05/31/19 09:36 Zofran Odt Tab* PO 4 mg Q6H PRN Administration NAUSEA Oxycodone HCl 5 mg 05/25/19 12:21 05/30/19 17:38 Roxycodone Tab* PO 5 mg Q6H PRN Administration PAIN - MODERATE Pantoprazole Sodium 40 mg 05/26/19 09:00 05/31/19 09:45 Protonix Tab* PO 40 mg DAILY KRYSTAL Administration Polyethylene Glycol/Electrolytes 17 gm 05/26/19 09:00 05/31/19 10:10 Miralax (17 Gm Dose Perfecto) PO 17 gm DAILY KRYSTAL Administration Senna 2 tab 05/25/19 21:00 05/30/19 20:02 Senokot 8.6 Mg Tab* PO 2 tab BEDTIME KRYSTAL Administration Vital Signs: Vital Signs Temp Pulse Resp BP Pulse Ox 98.7 F 71 20 158/78 91 05/31/19 07:55 05/31/19 16:00 05/31/19 16:00 05/31/19 16:00 05/31/19 16:00 Lab Results: Laboratory Results - last 24 hr 05/29/19 05/31/19 07:28 06:11 Sodium 130 L Potassium TNP Chloride 103 Carbon Dioxide 18 L Anion Gap 9 BUN 41 H Creatinine 1.15 Est GFR ( Amer) 79.6 Est GFR (Non-Af Amer) 65.8 BUN/Creatinine Ratio 35.7 H Glucose 177 H Calcium 8.0 L Prealbumin Cancelled 39 H Exam: GENERAL: In no distress LUNGS: Clear HEART: Reg rhythm ABDOMEN: Soft +BS EXTREMITIES: Decreased tone LEs NEUROLOGIC: Alert &oriented. Sensation decreased in legs. Muscle strength 2-3/5 in LEs Assessment/Plan: 1. 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 Metastatic melanoma: Brain mets with left hemorrhage: Speech therapy for cog work. WBRT finished 3. Neurogenic bladder: d/c Connor ICP Q shift, note volumes, may have to increase to Q6H 4. Neurogenic Bowel: Will try suppository at 0730 5. Analgesia: MS Contin 6. Advance Directives: DNR, has MOLST, met with palliative care 7. DVT Prophylaxis: TEDs. 05/31/19 17:46
[2019-05-31] MEDS: Scopolamine 1.5 mg* PATCH TRANSDERM SCH (18:16)
[2019-05-31] MEDS: Senna TAB 8.6 mg* TAB PO SCH (21:18)
[2019-06-01] MEDS: Morphine TAB Extended Release (*) 15 MG TAB.ER PO SCH ×3 (02:42→18:19)
[2019-06-01] MEDS: Ondansetron ODT TAB* 4 MG PO PRN ×3 (06:05→23:54)
[2019-06-01] MEDS: Dexamethasone TAB* 4 MG PO SCH ×3 (06:05→23:52)
[2019-06-01] MEDS: Pantoprazole TAB * 40 MG TAB PO SCH (09:19)
[2019-06-01] MEDS: amLODIPine TAB* 5 MG PO SCH (09:19)
[2019-06-01] MEDS: Polyethylene Glycol 3350* 17 GM PACKET PO SCH (09:19)
[2019-06-01] MEDS: Docusate CAP* 100 MG PO SCH ×2 (09:19→20:01)
[2019-06-01 14:37] LABS: Urine Appearance Turbid; Urine Bacteria 1+ (Absent); Urine Bilirubin Negative (Negative); Urine Blood 3+ (Negative); Urine Color Red; Urine Glucose Negative (Negative); Urine Ketones Negative (Negative); Urine Nitrite Negative (Negative); Urine Protein 2+(100 mg/dL) (Negative); Urine Red Blood Cell 3+(>10/hpf) (Absent); Urine Specific Gravity 1.015 (1.010-1.030); Urine Urobilinogen Negative (Negative); Urine White Blood Cell 3+(>20/hpf) (Absent)
--- NOTE | 2019-06-01 18:28 | PN ---
Progress Note Date of Service: 06/01/19 Note: SWATI CATES was visited. Therapy notes read and reviewed. He had a bloody urine after a straight cath and we sent a UA. 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 He has no fever, on decadron, will see if cultures come back. He remains with intermittent nausea. His headaches are better, appetite not great Current Medications: Active Medications Generic Name Dose Route Start Last Admin Trade Name Freq PRN Reason Stop Dose Admin Acetaminophen 650 mg 05/25/19 12:13 05/30/19 15:56 Tylenol Tab* PO 650 mg Q6H PRN Administration MILD PAIN or TEMP > 100.4 Amlodipine Besylate 10 mg 05/26/19 09:00 06/01/19 09:19 Norvasc Tab* PO 10 mg DAILY KRYSTAL Administration Bisacodyl 10 mg 05/28/19 07:30 06/01/19 09:20 Dulcolax Supp* [place] 10 mg 0730 KRYSTAL Administration Dexamethasone 4 mg 05/25/19 15:00 06/01/19 15:51 Decadron Tab* PO 4 mg Q8H KRYSTAL Administration Docusate Sodium 100 mg 05/25/19 21:00 06/01/19 09:19 Colace Cap* PO 100 mg BID KRYSTAL Administration Lorazepam 0.5 mg 05/25/19 14:00 05/31/19 03:36 Ativan Tab(*) PO 0.5 mg Q6H PRN Administration ANXIETY Magnesium Hydroxide 30 ml 05/25/19 12:13 05/28/19 09:30 Milk Of Magnesia Liq* PO 30 ml Q6H PRN Administration CONSTIPATION Morphine Sulfate 15 mg 05/31/19 18:00 06/01/19 18:19 Ms Contin(*) PO 15 mg Q8H KRYSTAL Administration Ondansetron HCl 4 mg 05/25/19 14:00 06/01/19 11:31 Zofran Odt Tab* PO 4 mg Q6H PRN Administration NAUSEA Oxycodone HCl 5 mg 05/25/19 12:21 05/30/19 17:38 Roxycodone Tab* PO 5 mg Q6H PRN Administration PAIN - MODERATE Pantoprazole Sodium 40 mg 05/26/19 09:00 06/01/19 09:19 Protonix Tab* PO 40 mg DAILY KRYSTAL Administration Polyethylene Glycol/Electrolytes 17 gm 05/26/19 09:00 06/01/19 09:19 Miralax (17 Gm Dose Perfecto) PO 17 gm DAILY KRYSTAL Administration Scopolamine 1 patch 05/31/19 18:00 05/31/19 18:16 Transderm-Scop 1.5 Mg Patch* TRANSDERM 1 patch Q72H KRYSTAL Administration Senna 2 tab 05/25/19 21:00 05/31/19 21:18 Senokot 8.6 Mg Tab* PO Not Given BEDTIME KRYSTAL Vital Signs: Vital Signs Temp Pulse Resp BP Pulse Ox 97.3 F 86 16 156/83 95 06/01/19 05:40 06/01/19 05:40 06/01/19 18:19 06/01/19 05:40 06/01/19 08:00 Lab Results: Laboratory Results - last 24 hr 06/01/19 11:45 Urine Color Red A Urine Appearance Turbid Urine pH 6.0 Ur Specific [place] 1.015 Urine Protein 2+(100 mg/dl) A Urine Ketones Negative Urine Blood 3+ A Urine Nitrate Negative Urine Bilirubin Negative Urine Urobilinogen Negative Ur Leukocyte Esterase 2+ A Urine WBC (Auto) 3+(>20/hpf) A Urine RBC (Auto) 3+(>10/hpf) A Urine Bacteria 1+ A Urine Glucose Negative Urine Ascorbic Acid Not Reportable Exam: GENERAL: In no distress LUNGS: Clear HEART: Reg rhythm ABDOMEN: Soft +BS EXTREMITIES: Decreased tone LEs NEUROLOGIC: Alert &oriented. Deficits with memory Sensation decreased in legs. Muscle strength 2-3/5 in LEs, right handgrip 4/5 Assessment/Plan: 1. 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 Metastatic melanoma: Brain mets with left hemorrhage: Speech therapy for cog work. WBRT finished, new area of hemorrhage on CT scan. No further XRT 3. Neurogenic bladder: d/c Sharma ICP Q shift, note volumes, may have to increase to Q6H, might go home with sharma as he does not show interest in learning to self cath 4. Neurogenic Bowel: suppository at 0730 5. Analgesia: MS Contin, back to Q8 hours 6. Advance Directives: DNR, has MOL, met with palliative care, he and his were not ready for hospice 7. DVT Prophylaxis: TEDs. 8. Thrombocytopenia: Check platelets in am 06/01/19 18:29 06/01/19 18:31
[2019-06-01] MEDS: Senna TAB 8.6 mg* TAB PO SCH (20:01)
[2019-06-02] MEDS: Morphine TAB Extended Release (*) 15 MG TAB.ER PO SCH ×3 (03:30→16:07)
[2019-06-02] MEDS: Dexamethasone TAB* 4 MG PO SCH ×2 (06:21→20:40)
[2019-06-02] MEDS: LORazepam TAB(*) 0.5 MG PO PRN (06:22)
[2019-06-02 07:04] LABS: ABS Lymphocytes 0.1 10^3/ul (1.0-4.8); ABS Monocytes 0.2 10^3/ul (0-0.8); ABS Neutrophils 5.2 10^3/ul (1.5-7.7); Hematocrit 43 % (42-52); Hemoglobin 15.2 g/dL (14.0-18.0); Lymphocyte % 1.7 %; Mean Corpuscular HGB Conc 35 g/dL (31-36); Mean Corpuscular Hemoglobin 34 pg (27-31); Mean Corpuscular Volume 97 fL (80-94); Mean Platelet Volume 6.9 fL (7.4-10.4); Platelet Count 73 10^3/uL (150-450); Red Blood Count 4.45 10^6 /uL (4.18-5.48); Red Cell Distribution Width 13 % (10-15); White Blood Count 5.5 10^3/uL (3.5-10.8)
[2019-06-02 07:13] LABS: Albumin 3.4 g/dL (3.2-5.2); Albumin/Globulin Ratio 1.5 (1-3); Calcium 8.6 mg/dL (8.6-10.3); EGFR African American 85.6 (>60); EGFR Non-African American 70.7 (>60); Globulin 2.2 g/dL (2-4); Potassium 4.5 mmol/L (3.5-5.0); Total Bilirubin 0.9 mg/dL (0.2-1.0); Total Protein 5.6 g/dL (6.4-8.9)
[2019-06-02] MEDS: amLODIPine TAB* 5 MG PO SCH (08:20)
[2019-06-02] MEDS: Pantoprazole TAB * 40 MG TAB PO SCH (08:20)
[2019-06-02] MEDS: Ondansetron ODT TAB* 4 MG PO PRN ×2 (08:23→21:47)
[2019-06-02] MEDS: Docusate CAP* 100 MG PO SCH ×2 (09:30→21:48)
[2019-06-02] MEDS: Polyethylene Glycol 3350* 17 GM PACKET PO SCH (09:30)
--- NOTE | 2019-06-02 11:20 | PN ---
Progress Note Date of Service: 06/02/19 Note: SWATI CATES was visited. Nursing and therapy notes read and reviewed. Urine no longer grossly bloody as it was yesterday after cath. Now more todd this morning. No chest pain, shortness of breath or abdominal pain. Had 2 bowel movements overnight. Suppository this morning had little production. Current Medications: Active Medications Generic Name Dose Route Start Last Admin Trade Name Freq PRN Reason Stop Dose Admin Acetaminophen 650 mg 05/25/19 12:13 05/30/19 15:56 Tylenol Tab* PO 650 mg Q6H PRN Administration MILD PAIN or TEMP > 100.4 Amlodipine Besylate 10 mg 05/26/19 09:00 06/02/19 08:20 Norvasc Tab* PO 10 mg DAILY KRYSTAL Administration Bisacodyl 10 mg 05/28/19 07:30 06/02/19 08:20 Dulcolax Supp* [place] 10 mg 0730 KRYSTAL Administration Dexamethasone 4 mg 05/25/19 15:00 06/02/19 06:21 Decadron Tab* PO 4 mg Q8H KRYSTAL Administration Docusate Sodium 100 mg 05/25/19 21:00 06/02/19 09:30 Colace Cap* PO Not Given BID KRYSTAL Lorazepam 0.5 mg 05/25/19 14:00 06/02/19 06:22 Ativan Tab(*) PO 0.5 mg Q6H PRN Administration ANXIETY Magnesium Hydroxide 30 ml 05/25/19 12:13 05/28/19 09:30 Milk Of Magnesia Liq* PO 30 ml Q6H PRN Administration CONSTIPATION Morphine Sulfate 15 mg 06/02/19 08:00 06/02/19 08:21 Ms Contin(*) PO 15 mg 0000,0800,1600 KRYSTAL Administration Ondansetron HCl 4 mg 05/25/19 14:00 06/02/19 08:23 Zofran Odt Tab* PO 4 mg Q6H PRN Administration NAUSEA Oxycodone HCl 5 mg 05/25/19 12:21 05/30/19 17:38 Roxycodone Tab* PO 5 mg Q6H PRN Administration PAIN - MODERATE Pantoprazole Sodium 40 mg 05/26/19 09:00 06/02/19 08:20 Protonix Tab* PO 40 mg DAILY KRYSTAL Administration Polyethylene Glycol/Electrolytes 17 gm 05/26/19 09:00 06/02/19 09:30 Miralax (17 Gm Dose Perfecto) PO Not Given DAILY KRYSTAL Scopolamine 1 patch 05/31/19 18:00 05/31/19 18:16 Transderm-Scop 1.5 Mg Patch* TRANSDERM 1 patch Q72H KRYSTAL Administration Senna 2 tab 05/25/19 21:00 06/01/19 20:01 Senokot 8.6 Mg Tab* PO Not Given BEDTIME KRYSTAL Vital Signs: Vital Signs Temp Pulse Resp BP Pulse Ox 97.7 F 63 18 142/89 94 06/02/19 05:58 06/02/19 05:58 06/02/19 10:54 06/02/19 05:58 06/02/19 05:58 Lab Results: Laboratory Results - last 24 hr 06/01/19 06/02/19 06/02/19 11:45 06:34 06:34 WBC 5.5 RBC 4.45 Hgb 15.2 Hct 43 MCV 97 H MCH 34 H MCHC 35 RDW 13 Plt Count 73 L MPV 6.9 L Neut % (Auto) 94.8 Lymph % (Auto) 1.7 Walker % (Auto) 3.5 Eos % (Auto) 0.0 Baso % (Auto) 0.0 Absolute Neuts (auto) 5.2 Absolute Lymphs (auto) 0.1 L Absolute Monos (auto) 0.2 Absolute Eos (auto) 0.0 Absolute Basos (auto) 0.0 Absolute Nucleated RBC 0.0 Nucleated RBC % 0.0 Sodium 130 L Potassium 4.5 Chloride 97 L Carbon Dioxide 25 Anion Gap 8 BUN 27 H Creatinine 1.08 Est GFR ( Amer) 85.6 Est GFR (Non-Af Amer) 70.7 BUN/Creatinine Ratio 25.0 H Glucose 160 H Calcium 8.6 Total Bilirubin 0.90 AST 18 ALT 49 Alkaline Phosphatase 53 Total Protein 5.6 L Albumin 3.4 Globulin 2.2 Albumin/Globulin Ratio 1.5 Urine Color Red A Urine Appearance Turbid Urine pH 6.0 Ur Specific [place] 1.015 Urine Protein 2+(100 mg/dl) A Urine Ketones Negative Urine Blood 3+ A Urine Nitrate Negative Urine Bilirubin Negative Urine Urobilinogen Negative Ur Leukocyte Esterase 2+ A Urine WBC (Auto) 3+(>20/hpf) A Urine RBC (Auto) 3+(>10/hpf) A Urine Bacteria 1+ A Urine Glucose Negative Urine Ascorbic Acid Not Reportable Exam: GENERAL: No acute distress. Alert and appropriate. LUNGS: Clear to auscultation bilaterally HEART: Regular rate and rhythm ABDOMEN: + bowel sounds, soft, non-tender and non-distended EXTREMITIES: Minimal BLE edema NEUROLOGIC: Sensation impaired in both legs waist down. Motor 2-3/5 bilateral lower extremities and 5/5 BUE except 4/5 right triceps. Sensation intact BUE. Assessment/Plan: 1. Metastatic Melanoma with T spine mets with incomplete SCI and paraparesis: PT /OT 2. Metastatic melanoma with brain mets with left hemorrhage: Speech therapy for cognition. WBRT finished, new area of hemorrhage on CT scan. No further XRT. Oncology follow-up. 3. Neurogenic bladder: Sharma out and gets ICP Q shift. Had gross hematuria yesterday that is better today. Will resend UA. I did d/w oncology and will not empirically treat without culture results unless he becomes febrile. Will need to teach to cath if he is unable/unwilling or go home with sharma. 4. Neurogenic Bowel: suppository at 0730 5. Analgesia: MS Contin Q8 hours 6. Advance Directives: DNR, has ANDREW, met with palliative care, he and his were not ready for hospice. Oncology may revisit with them. 7. DVT Prophylaxis: TEDs. 8. Thrombocytopenia: stable. 9. Hyponatremia: stable. 06/02/19 11:33
--- NOTE | 2019-06-02 11:28 | PN ---
Progress Note - Progress Note Date of Service: 06/02/19 SOAP: Subjective: Metastatic melanoma with known brain metastases and leptomeningeal disease. S/P WBRT Feeling much better today than he had been the past 2 days. He reports feeling ready to continue with physical therapy and pursue immunotherapy for melanoma. He reports mild headache with quick position changes, mild nausea that is relieved with PRN Zofran. He reports pain is tolerable at present- 5/10. Reports trying to work on managing pain without medication. He denies fever, chills. He reports occasional dizziness, confusion, weakness that he attributes to medication effect. Objective: Laboratory Results - last 24 hr 06/01/19 06/02/19 06/02/19 11:45 06:34 06:34 WBC 5.5 RBC 4.45 Hgb 15.2 Hct 43 MCV 97 H MCH 34 H MCHC 35 RDW 13 Plt Count 73 L MPV 6.9 L Neut % (Auto) 94.8 Lymph % (Auto) 1.7 Towns % (Auto) 3.5 Eos % (Auto) 0.0 Baso % (Auto) 0.0 Absolute Neuts (auto) 5.2 Absolute Lymphs (auto) 0.1 L Absolute Monos (auto) 0.2 Absolute Eos (auto) 0.0 Absolute Basos (auto) 0.0 Absolute Nucleated RBC 0.0 Nucleated RBC % 0.0 Sodium 130 L Potassium 4.5 Chloride 97 L Carbon Dioxide 25 Anion Gap 8 BUN 27 H Creatinine 1.08 Est GFR ( Amer) 85.6 Est GFR (Non-Af Amer) 70.7 BUN/Creatinine Ratio 25.0 H Glucose 160 H Calcium 8.6 Total Bilirubin 0.90 AST 18 ALT 49 Alkaline Phosphatase 53 Total Protein 5.6 L Albumin 3.4 Globulin 2.2 Albumin/Globulin Ratio 1.5 Urine Color Red A Urine Appearance Turbid Urine pH 6.0 Ur Specific [place] 1.015 Urine Protein 2+(100 mg/dl) A Urine Ketones Negative Urine Blood 3+ A Urine Nitrate Negative Urine Bilirubin Negative Urine Urobilinogen Negative Ur Leukocyte Esterase 2+ A Urine WBC (Auto) 3+(>20/hpf) A Urine RBC (Auto) 3+(>10/hpf) A Urine Bacteria 1+ A Urine Glucose Negative Urine Ascorbic Acid Not Reportable Vital Signs Temp Pulse Resp BP Pulse Ox 36.5 C 63 18 142/89 94 03/13/20 05:58 06/02/19 05:58 06/02/19 10:54 06/02/19 05:58 06/02/19 05:58 Acetaminophen (Tylenol Tab*) 650 mg PO Q6H PRN PRN Reason: MILD PAIN or TEMP > 100.4 Last Admin: 05/30/19 15:56 Dose: 650 mg Amlodipine Besylate (Norvasc Tab*) 10 mg PO DAILY [facility] Last Admin: 06/02/19 08:20 Dose: 10 mg Bisacodyl (Dulcolax Supp*) 10 mg [place] 0730 [facility] Last Admin: 06/02/19 08:20 Dose: 10 mg Dexamethasone (Decadron Tab*) 4 mg PO Q8H [facility] Last Admin: 06/02/19 06:21 Dose: 4 mg Docusate Sodium (Colace Cap*) 100 mg PO BID [facility] Last Admin: 06/02/19 09:30 Dose: Not Given Lorazepam (Ativan Tab(*)) 0.5 mg PO Q6H PRN PRN Reason: ANXIETY Last Admin: 06/02/19 06:22 Dose: 0.5 mg Magnesium Hydroxide (Milk Of Magnesia Liq*) 30 ml PO Q6H PRN PRN Reason: CONSTIPATION Last Admin: 05/28/19 09:30 Dose: 30 ml Morphine Sulfate (Ms Contin(*)) 15 mg PO 0000,0800,1600 [facility] Last Admin: 06/02/19 08:21 Dose: 15 mg Ondansetron HCl (Zofran Odt Tab*) 4 mg PO Q6H PRN PRN Reason: NAUSEA Last Admin: 06/02/19 08:23 Dose: 4 mg Oxycodone HCl (Roxycodone Tab*) 5 mg PO Q6H PRN PRN Reason: PAIN - MODERATE Last Admin: 05/30/19 17:38 Dose: 5 mg Pantoprazole Sodium (Protonix Tab*) 40 mg PO DAILY [facility] Last Admin: 06/02/19 08:20 Dose: 40 mg Polyethylene Glycol/Electrolytes (Miralax (17 Gm Dose Perfecto)) 17 gm PO DAILY [facility] Last Admin: 06/02/19 09:30 Dose: Not Given Scopolamine (Transderm-Scop 1.5 Mg Patch*) 1 patch TRANSDERM Q72H [facility] Last Admin: 05/31/19 18:16 Dose: 1 patch Senna (Senokot 8.6 Mg Tab*) 2 tab PO BEDTIME [facility] Last Admin: 06/01/19 20:01 Dose: Not Given General: in no acute distress HEENT: aomi, normocephalic/atraumatic Abd: non-tender, BS+ x 4 quadrants Cardiac: HRR, no murmurs Resp: RRR, non-labored. Extremities: edema to lower leg bilaterally, TELMA stockings on. Neuro: Alert and oriented to person, place and time. Strength 4/5 upper extremities bilaterally. Strength 3/5 right leg, 2/5 left leg. Assessment: 54yo male with metastatic melanoma, s/p palliative RT to lumbar spine, s/p WBRT with new hemorrhage reported on CT 05/31/2019. Yesterday, [facility] physician noted hematuria after straight cath, urine culture pending. He is unsure if he has consulted with palliative care recently, although he reports he is not interested in hospice and would like to "hit this with everything I've got." Spoke with his , Maryjo, via telephone who reports tentative discharge from [facility] on 06/08. She is currently undergoing family training to be able to care for him at home. Patient reports will likely be doing straight cath at home versus indwelling sharma catheter. He reports constipation is managed with stool softeners/laxatives as needed. Plan: 1. Metastatic Melanoma -plan rapid taper of Dexamethasone per RadOnc (4mg BID x 3 days, 06/04 start 4mg daily, 06/07 start 2mg daily). Monitor for increased dizziness, confusion, headaches, seizures. -plan start immunotherapy upon discharge and once Dexamethasone dose is down to 2mg daily (plan Nivolumab and Ipilimumab). -continue with physical therapy, occupational therapy and speech therapy. 2. Hematuria -improved today and no complaints of fever, chills. -culture pending. Will wait for C&S report and treat accordingly. -straight cath as per orders 3. Constipation -stool softeners/laxatives as per orders 4. Discharge tentatively scheduled for 06/09/2019. Reviewed above plan with patient and his , Maryjo who state understanding and agree.
[2019-06-02 13:25] LABS: Urine Appearance Turbid; Urine Bilirubin Negative (Negative); Urine Blood 3+ (Negative); Urine Color Amber; Urine Glucose Negative (Negative); Urine Ketones Negative (Negative); Urine Nitrite Negative (Negative); Urine Protein 1+(30 mg/dL) (Negative); Urine Specific Gravity 1.019 (1.010-1.030); Urine Urobilinogen Negative (Negative)
[2019-06-02 13:30] LABS: Urine Bacteria 3+ (Absent); Urine Red Blood Cell 3+(>10/hpf) (Absent); Urine White Blood Cell 3+(>20/hpf) (Absent)
[2019-06-02] MEDS: Senna TAB 8.6 mg* TAB PO SCH (21:48)
[2019-06-03] MEDS: Morphine TAB Extended Release (*) 15 MG TAB.ER PO SCH ×3 (01:07→15:58)
[2019-06-03] MEDS: Dexamethasone TAB* 4 MG PO SCH ×2 (08:46→20:17)
[2019-06-03] MEDS: Pantoprazole TAB * 40 MG TAB PO SCH (08:46)
[2019-06-03] MEDS: amLODIPine TAB* 5 MG PO SCH (08:46)
[2019-06-03] MEDS: Docusate CAP* 100 MG PO SCH ×2 (08:48→20:58)
[2019-06-03] MEDS: Polyethylene Glycol 3350* 17 GM PACKET PO SCH ×2 (08:48→20:15)
--- NOTE | 2019-06-03 10:00 | PN ---
Progress Note - Progress Note Date of Service: 06/03/19 SOAP: Subjective: Tells me he feels stronger No further hematuria Denies dysuria Urine with 100,000 CFU Pansensitive EColi Objective: Alert in bed Neck supple abdomen soft Neuro with improved lower extremity weakness Vital Signs - 8 hr 06/03/19 06/03/19 06/03/19 05:20 08:00 08:46 Temperature 97.8 F Pulse Rate 76 Respiratory 18 18 Rate Blood Pressure 134/81 (mmHg) O2 Sat by Pulse 97 97 Oximetry 06/03/19 08:49 Temperature Pulse Rate Respiratory 18 Rate Blood Pressure (mmHg) O2 Sat by Pulse Oximetry Laboratory Results - last 24 hr 06/02/19 12:15 Urine Color Kim Urine Appearance Turbid Urine pH 5.0 Ur Specific [place] 1.019 Urine Protein 1+(30 mg/dl) A Urine Ketones Negative Urine Blood 3+ A Urine Nitrate Negative Urine Bilirubin Negative Urine Urobilinogen Negative Ur Leukocyte Esterase 2+ A Urine WBC (Auto) 3+(>20/hpf) A Urine RBC (Auto) 3+(>10/hpf) A Urine Bacteria 3+ A Urine Glucose Negative Intake and Output Last 24 Hours 06/01/19 06/02/19 06/03/19 06/04/19 06:59 06:59 06:59 06:59 Intake Total 80 510 240 360 Output Total 1400 1100 1110 Balance -1320 -590 -870 360 Intake: Oral 80 510 240 360 Output: Urine 410 Straight Cath 1400 1100 700 Other: # Bowel Movements 1 1 2 Estimated Stool Amount Medium Medium Small # Voids 1 Acetaminophen (Tylenol Tab*) 650 mg PO Q6H PRN PRN Reason: MILD PAIN or TEMP > 100.4 Last Admin: 05/30/19 15:56 Dose: 650 mg Amlodipine Besylate (Norvasc Tab*) 10 mg PO DAILY [facility] Last Admin: 06/03/19 08:46 Dose: 10 mg Bisacodyl (Dulcolax Supp*) 10 mg [place] 0730 [facility] Last Admin: 06/03/19 09:35 Dose: 10 mg Cephalexin HCl (Keflex Cap*) 500 mg PO BID [facility] Stop: 06/07/19 09:01 Dexamethasone (Decadron Tab*) 4 mg PO BID [facility] Last Admin: 06/03/19 08:46 Dose: 4 mg Docusate Sodium (Colace Cap*) 100 mg PO BID [facility] Last Admin: 06/03/19 08:48 Dose: Not Given Lorazepam (Ativan Tab(*)) 0.5 mg PO Q6H PRN PRN Reason: ANXIETY Last Admin: 06/02/19 06:22 Dose: 0.5 mg Magnesium Hydroxide (Milk Of Magnesia Liq*) 30 ml PO Q6H PRN PRN Reason: CONSTIPATION Last Admin: 05/28/19 09:30 Dose: 30 ml Morphine Sulfate (Ms Contin(*)) 15 mg PO 0000,0800,1600 [facility] Last Admin: 06/03/19 08:46 Dose: 15 mg Ondansetron HCl (Zofran Odt Tab*) 4 mg PO Q6H PRN PRN Reason: NAUSEA Last Admin: 06/02/19 21:47 Dose: 4 mg Oxycodone HCl (Roxycodone Tab*) 5 mg PO Q6H PRN PRN Reason: PAIN - MODERATE Last Admin: 05/30/19 17:38 Dose: 5 mg Pantoprazole Sodium (Protonix Tab*) 40 mg PO DAILY [facility] Last Admin: 06/03/19 08:46 Dose: 40 mg Polyethylene Glycol/Electrolytes (Miralax (17 Gm Dose Perfecto)) 17 gm PO DAILY [facility] Last Admin: 06/03/19 08:48 Dose: Not Given Scopolamine (Transderm-Scop 1.5 Mg Patch*) 1 patch TRANSDERM Q72H [facility] Last Admin: 05/31/19 18:16 Dose: 1 patch Senna (Senokot 8.6 Mg Tab*) 2 tab PO BEDTIME [facility] Last Admin: 06/02/19 21:48 Dose: Not Given Assessment: Metastatic Melanoma in preparation for immunotherapy Post WBRT for [employer] metastases as well as palliative L spine radiotherapy for cauda equina syndrome E Coli UTI Plan: Dex taper as per Radiation Oncology In preparation for immunotherapy Continues PT Will opt to treat EColi given that Dex as well as cauda Equina presentation can mask symptoms of active UTI Keflex 500 mg BID for 4 days
[2019-06-03] MEDS: Cephalexin CAP* 500 MG PO SCH ×2 (10:18→20:16)
--- NOTE | 2019-06-03 11:05 | PN ---
Progress Note Date of Service: 06/03/19 Note: SWATI CATES was visited. Nursing and therapy notes read and reviewed. No chest pain, shortness of breath or abdominal pain. Yesterday was "a good day" for him and he feels pretty good this morning also. He had a good breakfast. No BM this morning. Seen by Dr. Díaz this morning and initiated keflex for pansensitive ecoli in urine. Current Medications: Active Medications Generic Name Dose Route Start Last Admin Trade Name Freq PRN Reason Stop Dose Admin Acetaminophen 650 mg 05/25/19 12:13 05/30/19 15:56 Tylenol Tab* PO 650 mg Q6H PRN Administration MILD PAIN or TEMP > 100.4 Amlodipine Besylate 10 mg 05/26/19 09:00 06/03/19 08:46 Norvasc Tab* PO 10 mg DAILY [facility] Administration Bisacodyl 10 mg 05/28/19 07:30 06/03/19 09:35 Dulcolax Supp* IN 10 mg 0730 [facility] Administration Cephalexin HCl 500 mg 06/03/19 10:00 06/03/19 10:18 Keflex Cap* PO 06/06/19 21:01 500 mg BID [facility] Administration Dexamethasone 4 mg 06/02/19 21:00 06/03/19 08:46 Decadron Tab* PO 4 mg BID [facility] Administration Docusate Sodium 100 mg 05/25/19 21:00 06/03/19 08:48 Colace Cap* PO Not Given BID [facility] Lorazepam 0.5 mg 05/25/19 14:00 06/02/19 06:22 Ativan Tab(*) PO 0.5 mg Q6H PRN Administration ANXIETY Magnesium Hydroxide 30 ml 05/25/19 12:13 05/28/19 09:30 Milk Of Magnesia Liq* PO 30 ml Q6H PRN Administration CONSTIPATION Morphine Sulfate 15 mg 06/02/19 08:00 06/03/19 08:46 Ms Contin(*) PO 15 mg 0000,0800,1600 [facility] Administration Ondansetron HCl 4 mg 05/25/19 14:00 06/02/19 21:47 Zofran Odt Tab* PO 4 mg Q6H PRN Administration NAUSEA Oxycodone HCl 5 mg 05/25/19 12:21 05/30/19 17:38 Roxycodone Tab* PO 5 mg Q6H PRN Administration PAIN - MODERATE Pantoprazole Sodium 40 mg 05/26/19 09:00 06/03/19 08:46 Protonix Tab* PO 40 mg DAILY [facility] Administration Polyethylene Glycol/Electrolytes 17 gm 05/26/19 09:00 06/03/19 08:48 Miralax (17 Gm Dose Perfecto) PO Not Given DAILY [facility] Scopolamine 1 patch 05/31/19 18:00 05/31/19 18:16 Transderm-Scop 1.5 Mg Patch* TRANSDERM 1 patch Q72H [facility] Administration Senna 2 tab 05/25/19 21:00 06/02/19 21:48 Senokot 8.6 Mg Tab* PO Not Given BEDTIME [facility] Vital Signs: Vital Signs Temp Pulse Resp BP Pulse Ox 97.8 F 76 18 134/81 97 06/03/19 05:20 06/03/19 05:20 06/03/19 08:49 06/03/19 05:20 06/03/19 08:00 Lab Results: Laboratory Results - last 24 hr 06/02/19 12:15 Urine Color Kim Urine Appearance Turbid Urine pH 5.0 Ur Specific [place] 1.019 Urine Protein 1+(30 mg/dl) A Urine Ketones Negative Urine Blood 3+ A Urine Nitrate Negative Urine Bilirubin Negative Urine Urobilinogen Negative Ur Leukocyte Esterase 2+ A Urine WBC (Auto) 3+(>20/hpf) A Urine RBC (Auto) 3+(>10/hpf) A Urine Bacteria 3+ A Urine Glucose Negative Pansensitive Ecoli from urine culture 06/01/2019. Exam: GENERAL: No acute distress. Alert and appropriate. LUNGS: Clear to auscultation bilaterally HEART: Regular rate and rhythm ABDOMEN: + bowel sounds, soft, non-tender and non-distended EXTREMITIES: BLE edema NEUROLOGIC: CN II-XII intact. Sensation impaired in both legs waist down. Motor 2-3/5 bilateral lower extremities and 5/5 BUE except 4/5 right triceps. Sensation intact BUE. Assessment/Plan: 1. Metastatic Melanoma with T spine mets with incomplete SCI and paraparesis: PT /OT 2. 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 WBRT finished, new area of hemorrhage on CT scan 05/31/2019. No further XRT. Oncology follow-up. 3. Neurogenic bladder with Pansensitive Ecoli UTI: Sharma out and gets ICP Q shift. Had gross hematuria 05/31 that resolved. Keflex 500mg bid 03/25. Will need to teach to cath if he is unable/unwilling or go home with sharma. 4. Neurogenic Bowel: suppository at 0730 5. Analgesia: MS Contin Q8 hours 6. Advance Directives: DNR, has MOLST, met with palliative care, he and his were not ready for hospice. Oncology may revisit with them. 7. DVT Prophylaxis: TEDs. 8. Thrombocytopenia: stable. 9. Hyponatremia: stable. 06/03/19 11:07
[2019-06-03] MEDS: Scopolamine 1.5 mg* PATCH TRANSDERM SCH (16:55)
[2019-06-03] MEDS: Senna TAB 8.6 mg* TAB PO SCH (20:58)
[2019-06-04] MEDS: Morphine TAB Extended Release (*) 15 MG TAB.ER PO SCH ×4 (00:25→23:35)
[2019-06-04] MEDS: Pantoprazole TAB * 40 MG TAB PO SCH (08:52)
[2019-06-04] MEDS: Dexamethasone TAB* 4 MG PO SCH ×2 (08:52→21:01)
[2019-06-04] MEDS: amLODIPine TAB* 5 MG PO SCH (08:52)
[2019-06-04] MEDS: Cephalexin CAP* 500 MG PO SCH ×2 (08:53→21:01)
[2019-06-04] MEDS: Docusate CAP* 100 MG PO SCH ×2 (09:25→20:53)
[2019-06-04] MEDS: Polyethylene Glycol 3350* 17 GM PACKET PO SCH (09:25)
--- NOTE | 2019-06-04 10:47 | PN ---
Progress Note Date of Service: 06/04/19 Note: SWATI CATES was visited. Nursing notes read and reviewed. Woke up with an appetite this morning. He had a small bowel movement this morning after suppository. No chest pain, shortness of breath or abdominal pain. No nausea or vomiting. Current Medications: Active Medications Generic Name Dose Route Start Last Admin Trade Name Freq PRN Reason Stop Dose Admin Acetaminophen 650 mg 05/25/19 12:13 05/30/19 15:56 Tylenol Tab* PO 650 mg Q6H PRN Administration MILD PAIN or TEMP > 100.4 Amlodipine Besylate 10 mg 05/26/19 09:00 06/04/19 08:52 Norvasc Tab* PO 10 mg DAILY [facility] Administration Bisacodyl 10 mg 05/28/19 07:30 06/04/19 09:13 Dulcolax Supp* [place] 10 mg 0730 [facility] Administration Cephalexin HCl 500 mg 06/03/19 10:00 06/04/19 08:53 Keflex Cap* PO 06/06/19 21:01 500 mg BID [facility] Administration Dexamethasone 4 mg 06/02/19 21:00 06/04/19 08:52 Decadron Tab* PO 4 mg BID [facility] Administration Docusate Sodium 100 mg 05/25/19 21:00 06/04/19 09:25 Colace Cap* PO Not Given BID [facility] Lorazepam 0.5 mg 05/25/19 14:00 06/02/19 06:22 Ativan Tab(*) PO 0.5 mg Q6H PRN Administration ANXIETY Magnesium Hydroxide 30 ml 05/25/19 12:13 05/28/19 09:30 Milk Of Magnesia Liq* PO 30 ml Q6H PRN Administration CONSTIPATION Morphine Sulfate 15 mg 06/02/19 08:00 06/04/19 08:52 Ms Contin(*) PO 15 mg 0000,0800,1600 [facility] Administration Ondansetron HCl 4 mg 05/25/19 14:00 06/02/19 21:47 Zofran Odt Tab* PO 4 mg Q6H PRN Administration NAUSEA Oxycodone HCl 5 mg 05/25/19 12:21 05/30/19 17:38 Roxycodone Tab* PO 5 mg Q6H PRN Administration PAIN - MODERATE Pantoprazole Sodium 40 mg 05/26/19 09:00 06/04/19 08:52 Protonix Tab* PO 40 mg DAILY [facility] Administration Polyethylene Glycol/Electrolytes 17 gm 05/26/19 09:00 06/04/19 09:25 Miralax (17 Gm Dose Perfecto) PO Not Given DAILY [facility] Scopolamine 1 patch 05/31/19 18:00 06/03/19 16:55 Transderm-Scop 1.5 Mg Patch* TRANSDERM 1 patch Q72H [facility] Administration Senna 2 tab 05/25/19 21:00 06/03/19 20:58 Senokot 8.6 Mg Tab* PO Not Given BEDTIME [facility] Vital Signs: Vital Signs Temp Pulse Resp BP Pulse Ox 98.2 F 79 18 140/84 97 06/04/19 06:15 06/04/19 06:15 06/04/19 08:52 06/04/19 06:30 06/04/19 08:00 Exam: GENERAL: No acute distress. Alert and appropriate. LUNGS: Clear to auscultation bilaterally HEART: Regular rate and rhythm ABDOMEN: + bowel sounds, soft, non-tender and non-distended EXTREMITIES: BLE edema NEUROLOGIC: CN II-XII intact. Sensation impaired in both legs waist down. Motor 2-3/5 bilateral lower extremities and 5/5 BUE except 4+/5 right triceps. Sensation intact BUE. Assessment/Plan: 1. Metastatic Melanoma with T spine mets with incomplete SCI and paraparesis: PT /OT 2. 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 WBRT finished, new area of hemorrhage on CT scan 05/31/2019. No further XRT. Oncology follow-up. 3. Neurogenic bladder with Pansensitive Ecoli UTI: Sharma out and gets ICP Q shift. Had gross hematuria 05/31 that resolved. Keflex 500mg bid 04/25. Will need to teach to cath if he is unable/unwilling or go home with sharma. He is not so sure yet. 4. Neurogenic Bowel: suppository at 0730 5. Analgesia: MS Contin Q8 hours 6. Advance Directives: DNR, has MOLST, met with palliative care, he and his were not ready for hospice. Oncology may revisit with them. 7. DVT Prophylaxis: TEDs. 8. Thrombocytopenia: stable. 9. Hyponatremia: stable. 10. Nausea: better with scopalomine patch 06/04/19 10:45
[2019-06-04] MEDS: oxyCODONE TAB* 5 MG TAB PO PRN (21:01)
[2019-06-04] MEDS: Senna TAB 8.6 mg* TAB PO SCH (21:02)
[2019-06-05] MEDS: amLODIPine TAB* 5 MG PO SCH (08:19)
[2019-06-05] MEDS: Dexamethasone TAB* 4 MG PO SCH (08:19)
[2019-06-05] MEDS: Cephalexin CAP* 500 MG PO SCH ×2 (08:19→21:03)
[2019-06-05] MEDS: Pantoprazole TAB * 40 MG TAB PO SCH (08:19)
[2019-06-05] MEDS: Morphine TAB Extended Release (*) 15 MG TAB.ER PO SCH ×2 (08:20→15:52)
[2019-06-05] MEDS: Polyethylene Glycol 3350* 17 GM PACKET PO SCH (10:08)
[2019-06-05] MEDS: Docusate CAP* 100 MG PO SCH ×2 (10:08→21:02)
--- NOTE | 2019-06-05 10:33 | PN ---
Progress Note Date of Service: 06/05/19 Note: SWATI CATES was visited. Nursing notes read and reviewed. No new issues overnight. No chest pain, shortness of breath or abdominal pain. Current Medications: Active Medications Generic Name Dose Route Start Last Admin Trade Name Freq PRN Reason Stop Dose Admin Acetaminophen 650 mg 05/25/19 12:13 05/30/19 15:56 Tylenol Tab* PO 650 mg Q6H PRN Administration MILD PAIN or TEMP > 100.4 Amlodipine Besylate 10 mg 05/26/19 09:00 06/05/19 08:19 Norvasc Tab* PO 10 mg DAILY [facility] Administration Bisacodyl 10 mg 05/28/19 07:30 06/05/19 08:21 Dulcolax Supp* [place] 10 mg 0730 [facility] Administration Cephalexin HCl 500 mg 06/03/19 10:00 06/05/19 08:19 Keflex Cap* PO 06/06/19 21:01 500 mg BID [facility] Administration Dexamethasone 4 mg 06/02/19 21:00 06/05/19 08:19 Decadron Tab* PO 4 mg BID [facility] Administration Docusate Sodium 100 mg 05/25/19 21:00 06/05/19 10:08 Colace Cap* PO 100 mg BID [facility] Administration Lorazepam 0.5 mg 05/25/19 14:00 06/02/19 06:22 Ativan Tab(*) PO 0.5 mg Q6H PRN Administration ANXIETY Magnesium Hydroxide 30 ml 05/25/19 12:13 05/28/19 09:30 Milk Of Magnesia Liq* PO 30 ml Q6H PRN Administration CONSTIPATION Morphine Sulfate 15 mg 06/02/19 08:00 06/05/19 08:20 Ms Contin(*) PO 15 mg 0000,0800,1600 [facility] Administration Ondansetron HCl 4 mg 05/25/19 14:00 06/02/19 21:47 Zofran Odt Tab* PO 4 mg Q6H PRN Administration NAUSEA Oxycodone HCl 5 mg 05/25/19 12:21 06/04/19 21:01 Roxycodone Tab* PO 5 mg Q6H PRN Administration PAIN - MODERATE Pantoprazole Sodium 40 mg 05/26/19 09:00 06/05/19 08:19 Protonix Tab* PO 40 mg DAILY [facility] Administration Polyethylene Glycol/Electrolytes 17 gm 05/26/19 09:00 06/05/19 10:08 Miralax (17 Gm Dose Perfecto) PO 17 gm DAILY [facility] Administration Scopolamine 1 patch 05/31/19 18:00 06/03/19 16:55 Transderm-Scop 1.5 Mg Patch* TRANSDERM 1 patch Q72H [facility] Administration Senna 2 tab 05/25/19 21:00 06/04/19 21:02 Senokot 8.6 Mg Tab* PO Not Given BEDTIME [facility] Vital Signs: Vital Signs Temp Pulse Resp BP Pulse Ox 98.2 F 72 14 144/82 98 06/05/19 06:09 06/05/19 06:09 06/05/19 08:20 06/05/19 06:09 06/05/19 07:30 Exam: GENERAL: No acute distress. Alert and appropriate. LUNGS: Clear to auscultation bilaterally HEART: Regular rate and rhythm ABDOMEN: + bowel sounds, soft, non-tender and non-distended EXTREMITIES: BLE edema NEUROLOGIC: CN II-XII intact. Sensation impaired in both legs waist down. Motor 2-3/5 bilateral lower extremities and 5/5 BUE except 4+/5 right triceps. Sensation intact BUE. Assessment/Plan: 1. Metastatic Melanoma with T spine mets with incomplete SCI and paraparesis: PT /OT 2. 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 WBRT finished, new area of hemorrhage on CT scan 05/31/2019. No further XRT. Oncology follow-up. 3. Neurogenic bladder with Pansensitive Ecoli UTI: Sharma out and gets ICP Q shift. Had gross hematuria 05/31 that resolved. Keflex 500mg bid 3/. Will need to teach to cath if he is unable/unwilling or go home with sharma. He is not so sure yet. 4. Neurogenic Bowel: suppository at 0730 5. Analgesia: MS Contin Q8 hours 6. Advance Directives: DNR, has MOL, met with palliative care, he and his were not ready for hospice. Oncology may revisit with them. 7. DVT Prophylaxis: TEDs. 8. Thrombocytopenia: stable. 9. Hyponatremia: stable. 10. Nausea: better with scopalomine patch 06/05/19 10:32
[2019-06-05] MEDS: Ondansetron ODT TAB* 4 MG PO PRN (11:11)
[2019-06-05] MEDS: Senna TAB 8.6 mg* TAB PO SCH (21:02)
[2019-06-06] MEDS: Morphine TAB Extended Release (*) 15 MG TAB.ER PO SCH ×4 (00:18→23:13)
[2019-06-06] MEDS: Cephalexin CAP* 500 MG PO SCH ×2 (08:38→20:05)
[2019-06-06] MEDS: amLODIPine TAB* 5 MG PO SCH (08:38)
[2019-06-06] MEDS: Pantoprazole TAB * 40 MG TAB PO SCH (08:38)
[2019-06-06] MEDS: Dexamethasone TAB* 4 MG PO SCH (08:39)
[2019-06-06] MEDS: Polyethylene Glycol 3350* 17 GM PACKET PO SCH (08:39)
[2019-06-06] MEDS: Docusate CAP* 100 MG PO SCH ×2 (08:39→20:05)
--- NOTE | 2019-06-06 12:47 | PMRUTEAM ---
PMRU: Team Meeting Current Status: Physical Therapy: Current Status Current Rolling Status Supervision/Touching Current Supine <-> Sit Status Partial/Moderate Current Sit <-> Stand Status Partial/Moderate Current Bed <-> Chair Status Dependent Transfer/Bed Mobility KELLY Recommended Devices Current Picking Up Object Dependent Status Current Car Transfer Status Dependent Current Ambulation Assistance Not attempted Status Manual Wheelchair Control/ Bilateral UE's Technique Current Wheelchair Propulsion Not attempted Ability Status Wheelchair Distance (ft) 150' Current Stair Climbing Status Not attempted Current Curb Assistance Status Not attempted Objective Comments vitals: initial BP 142/82, HR 92bpm, SPO2 95% Occupational Therapy: Current Status Current Upper Body Dressing Setup or Clean-up Assist Status Current Lower Body Dressing Dependent Status Current Footwear Status Dependent Current Bathing Status Partial/Moderate Current Grooming Status Setup or Clean-up Assist Current Toileting Status Dependent Toileting Progress totalA in KELLY Current Toilet Transfer Status Dependent Toilet Transfer Progress KELLY Current Eating Status Independent Nursing: Current Status Skin Deviations [Coccyx] Skin Tear Skin Deviations [Left Buttocks Pressure Ulcer ] Skin Deviation Description [ pin point opened area Coccyx] Skin Deviation Description [ orange cream applied; T&P Left Buttocks] Wound Stage [Left Buttocks] II Bladder Current Status dependent/straight cath/education done Bowel Current Status dependent/incontinent Nutrition Current Status 75% eaten Medication Current Status dependent Rec Therapy: Current Status Summary of Assessment and Recreation therapy assessment complete and pt is Clinical Impression aware of services. Pt shared that he will be having family and friends visiting often, but was open to continued leisure visits, when available, and pet therapy. Treatment Goals Pt will engaged in lesiure activities while on the unit, as tolerated. Treatment Plan Provide recreation therapy services and encourage involvement. Social Work: Current Status Discharge Plan return home with home care svs and family support Potential for Family Training pt's is involved and supportive Anticipated Discharge Home Destination Discharge With home care svs and family support Nutrition: Current Status Monitoring Pt continues to receive regular diet w/soft textures though is able to request pureed textures as needed for ease of chewing. Pt noted with good intake at meals x 3 days, avg 73% at meals. Though noted to have nausea at times that negatively impacts appetite/po intake. Pt receives Nepro once daily to supplement po intake; has increased calorie needs r/t skin breakdown (coccyx and L buttock), but anticipate pt able to meet estimated needs. Labs/meds rev'd: Na 130 L, Cl 97 L. Current plan of care remains appropriate; continue. Will follow. Speech: Current Status Assessment Patient is progressing as expected. After several days of medical interuption, HAND ENGRAVER completed administration of the Cognitive Linguistic Quick Test over three sessions. Composite Severity Rating was 3.4/4.0, indicating Mild impairment. Task Scores 05/27/19 Personal facts: /, WNL Symbol Cancelation: 03/01, WNL Confrontational Namin/10, WNL Clock Drawin/12, WNL 05/29/19 Story Retellin/6, Below criterion Symbol Trails: 8/, Below criterion Generative Namin/, Below criterion 06/05/19 Design Memory 6/6, Age Criterion 5 (Met) Mazes 7/8, Age Criterion 7 (Met) Design Generation 07/02, Age Criterion 6 (Below) Cognitive Domain Scores: Attention: 186/180, Within Normal Limits Memory: 150/155, Mild impairment Executive: 23/24, Mild impairment Language: 27//37, Mild impairment Visuospatial: 89/82, Within Normal Limits Composite Severity Ratin.4/4.0, Mild impairment HAND ENGRAVER instructed patient in constrained summarization method of improving attention to and recall of reading passages. Patient demonstrated task well wth maximal cueing faded to minimal. Goals: Physical Therapy: Goals Goals to Be Accomplished in ( 10-14 Days) Goal: Rolling Assistance Independent Goal Supine <-> Sit Status Independent Goal Sit <-> Stand Status Partial/Moderate Goal Bed <-> Chair Status Partial/Moderate Transfer/Bed Mobility KELLY Recommended Devices Goal: Picking Up Object Partial/Moderate Goal: Car Transfer Status Partial/Moderate Goal: Ambulation Assistance Partial/Moderate Ambulation Assistive Devices Rolling Walker Ambulation Distance (ft) 50' Goal: Wheelchair Propulsion Independent Ability Wheelchair Distance (ft) 150 Goal: Stairs Assistance Partial/Moderate Stairs Recommended Devices One Rail Number of Stairs 1 Goal: Curb Assistance Partial/Moderate Goal: Home Exercise Program Independent Assistance Occupational Therapy: Goals Goals to be Completed in (Days 7-14 Days ) Goal Upper Body Dressing Setup or Clean-up Assist Routine Goal Lower Body Dressing Partial/Moderate Routine Goal Footwear Status Setup or Clean-up Assist Goal Bathing Routine (OT) Partial/Moderate Goal Grooming Routine Setup or Clean-up Assist Goal Toilet Hygiene and Dependent Clothing Management Routine Goal Toilet Transfer Routine Dependent Goal Functional Transfers for Dependent ADL Goal Feeding Routine Independent Goal Light Housekeeping Tasks Substantial/Maximal Nutrition: Goals Intervention Goals 1. Tolerates least-restrictive texture w/o difficulty chewing/swallowing. 2. Maintains adequate oral intake to support maintenance of lean body mass w/o contributing to undesirable weight gain. 3. Maintains K WNL. 4. Signs of resolution of skin issue and no evidence of further breakdown. Speech: Goals Speech Goal 1 Swallowing Goal 1 Comments Long-Term Goal: Patient will I'ly follow precautions to tolerate least restrictive diet consistencies w/ no complications from aspiration. Short Term Goals: 1) STG: Patient will demonstrate and follow swallowing exercises and compensatory strategies, to tolerate mechanical/ground soft diet consistency w/ adequate rotary mastication and and oral transit, and no clinical s/s aspiration, Independently Status: Progressing as expected. Patient is tolerating mechanical/ground diet texture and successfully chewed and reported that he swallowed his entire dinner tray the previous evening. Speech Goal 2 Problem Solving Speech Goal 2 Comments Problem Solving Goal: Long-Term Goal: Pt will use compensatory strategies to solve moderately complex routine problems, for transfer and mobility safety, adaptive dressing, time and money management; with 100% accuracy, Independently. Problem Solving Goal: Short-Term: Pt will use compensatory strategies to solve simple routine problems, for transfer and mobility safety, adaptive dressing, time and money management; with 80% accuracy, given skilled instruction, Moderate cueing, and extra time. Status: Progressing as expected. Patient completed the final 3 tasks of the Cognitive Linguistic Quick Test. Composite Severity Rating was 3.4/4.0, indicating Mild impairment. HAND ENGRAVER instructed patient in constrained summarization method of improving attention to and recall of reading passages. Patient demonstrated task well wth maximal cueing faded to minimal. Social Work: Goals Discharge Plan return home with home care svs and family support Potential for Family Training pt's is involved and supportive Anticipated Discharge Home Destination Discharge With home care svs and family support Nursing: Goals Bladder Goal independent Bowel Goal independent Nutrition Goal continue 100% meals eaten Medication Goal independent Care Plan: Care Plan ADL's - Improve/Maintain Start: 05/26/19 14:26 Freq: DAILY@0700,1900 Status: Active Target: 05/27/19 Protocol: Activity Type Activity Date Activity User E-Sign Co-Sign Detail Recorded Client Recorded Date Recorded By Document 06/05/19 15:04 [id number] 06/05/19 15:04 [id number] 06/05/19 15:04 PMRU Outcome: ADL's/ADL Transfers Orders/Interventions Occupational Therapy Evaluation & Treatment Communication Tool in Patient Room Device Yes Address Deficits Secondary To: [place], [facility] Patient to receive OT 5x/wk for 60-120 Therex min/day Self Care Management Group Therapy Neuromuscular ReEducation UE/LE ADL's with Assist Yes: Vira ADL Transfers with Assist Yes: Vira Toileting: Transfers,Clothing Management Yes: Vira ,Hygeine w/Assist Light Kitchen/Laundry w/Assist No Other Outcome/Goals Pt participated well in both tx sessions this date. Pt motivated and in good spirits throughout sessions. Progression Toward Outcome/Goals Progressing Communication-Improve/Maintain Start: 05/27/19 10:46 Freq: DAILY@[id number] Status: Active Target: 06/09/19 Protocol: Activity Type Activity Date Activity User E-Sign Co-Sign Detail Recorded Client Recorded Date Recorded By Document 06/06/19 07:00 [id number] 06/06/19 07:34 [id number] 06/06/19 07:00 PMRU Outcome: Communication/Cognitive Status Current Communication Outcome/Goals Use Comm Tools/ Devices Makes Needs Known Effectively Progression Toward Outcomes/Goals Progressing Coping/Psych-Improve/Maintain Start: 05/25/19 10:55 Freq: DAILY@699,1900 Status: Active Target: 06/09/19 Protocol: Activity Type Activity Date Activity User E-Sign Co-Sign Detail Recorded Client Recorded Date Recorded By Document 06/06/19 07:00 [id number] [email or web address] 06/06/19 07:34 [id number] 06/06/19 07:00 PMRU Outcome: Coping/Psychosocial Current Coping Outcome/Goals Verbalization of Acceptance of Rehab Admit Verbalization of Sense of Control Over Health Status Utilization of Appropriate Problem Solving Techniques Willingness to Participate in Treatment Plan and Basic Needs Utilization of Available Support Systems Progression Toward Outcome/Goals Progressing Current Psychosocial Outcome/Goals Maintain/ Improve Emotional Health Demonstrates Knowledge of Healthy Coping Mechanisms Available Cooperate/ Participate in Plan Progression Toward Outcome/Goals Progressing DVT Prophylaxis- Improve/Maintain Start: 05/25/19 10:55 Freq: DAILY@ Status: Active Target: 06/09/19 Protocol: Activity Type Activity Date Activity User E-Sign Co-Sign Detail Recorded Client Recorded Date Recorded By Document 06/06/19 07:00 [id number] 06/06/19 07:34 [id number] 06/06/19 07:00 PMRU Outcome: DVT Prophylaxis Current DVT Outcome/Goals Remains Free of DVT Complies with DVT Prophylaxis /Treatment Demonstrates Knowledge of DVT Prevention/ Treatment TEDS Stockings on Every AM, Off at HS Progression Toward Outcome/Goals Progressing Discharge Planning - Improve/Maintain Start: 05/25/19 10:55 Freq: DAILY@ Status: Active Target: 06/09/19 Protocol: Activity Type Activity Date Activity User E-Sign Co-Sign Detail Recorded Client Recorded Date Recorded By Document 06/06/19 07:00 [id number] 06/06/19 07:34 [id number] 06/06/19 07:00 PMRU Outcome: Discharge Planning Update Patient Family No: family not present Current Discharge Planning Outcome/Goals Demonstrates Understanding of Discharge Plan Homecare Referral - See Comment Progression Toward Outcome/Goals Progressing Education-Improve/Maintain Start: 05/25/19 10:55 Freq: DAILY@ Status: Active Target: 06/09/19 Protocol: Activity Type Activity Date Activity User E-Sign Co-Sign Detail Recorded Client Recorded Date Recorded By Document 06/06/19 07:00 [id number] [email or web address] 06/06/19 07:34 [id number] 06/06/19 07:00 PMRU Outcome: Education Current Education Outcome/Goals Demonstrate/ Verbalize Understanding of Written Discharge Instructions Demonstrates Skills Encourage Questions Progression Toward Outcome/Goals Progressing /GI-Improve/Maintain Start: 05/25/19 10:55 Freq: DAILY@ Status: Active Target: 06/09/19 Protocol: Activity Type Activity Date Activity User E-Sign Co-Sign Detail Recorded Client Recorded Date Recorded By Document 06/06/19 07:00 [id number] 06/06/19 07:34 [id number] 06/06/19 07:00 PMRU Outcome: Genitourinary/ Gastrointestinal Current Gastrointestinal Outcome/Goals Maintain/ Achieve Bowel Regularity in Accordance with Pt's Baseline Remain Free of Emesis Prevent Constipation Laxatives as Ordered Progression Toward Outcome/Goals Progressing Current Genitourinary Outcome/Goals Maintain/ Achieve Urinary Continence Maintain/ Achieve Adequate Urinary Output Progression Toward Outcome/Goals Not Progressing Lack of Progression Comment straight cath q shift Medication Administration Start: 05/25/19 10:55 Freq: DAILY@[id number] Status: Active Target: 06/09/19 Protocol: Activity Type Activity Date Activity User E-Sign Co-Sign Detail Recorded Client Recorded Date Recorded By Document 06/06/19 07:00 [id number] [email or web address] 06/06/19 07:34 [id number] 06/06/19 07:00 PMRU Outcome: Medication Administration Assess Patient Knowledge/Teach Med Yes Education for all Meds Current Crop Picker Outcome/Goals Patient Independent with Medication Administration at Home Family/ Caregiver Administer Medications at Home Demonstrates Understanding Progression Towards Outcome/Goals Progressing Is Patient Going Home on Lovenox? No Mobility- Improve/Maintain Start: 05/26/19 17:12 Freq: DAILY@ Status: Active Target: 05/27/19 Protocol: Activity Type Activity Date Activity User E-Sign Co-Sign Detail Recorded Client Recorded Date Recorded By Document 06/01/19 17:25 [id number] 06/01/19 17:25 [id number] 06/01/19 17:25 PMRU Outcome: Mobility Physical Therapy Evaluation and Yes Treatment Activity OOB with Assistance Yes WBAT Yes NWB No TTWB No Device Yes Assistance Yes Patient to be seen 5x/wk for 60-120 min/ Therex day for: Mobility Training Gait Training W/C Mobility Balance Other Other Therapy Comment Discharge training/ discharge planning Current Mobility Outcome/Goals Maintain/ Achieve Baseline Mobility Status Improve Mobility Status Demonstrates Proper Use of Assistive Devices Free from Complications of Immobility Progression Toward Outcome/Goals Progressing Bed Mobility Yes: Independent Transfers Yes: Min A with LRD Gait x ft Yes: 25' Min A with RW W/C Mobility x ft Yes: 300' Independent Up/Down Stairs No: Ramp installed to enter/exit the home With HEP Yes: Independent Neurological- Improve/Maintain Start: 05/25/19 10:55 Freq: DAILY@[id number] Status: Active Target: 06/09/19 Protocol: Activity Type Activity Date Activity User E-Sign Co-Sign Detail Recorded Client Recorded Date Recorded By Document 06/06/19 07:00 [id number] [email or web address] 06/06/19 07:34 [id number] 06/06/19 07:00 PMRU Outcome: Neurological Weakness/Aphasia Weakness Current Neurological Outcome/Goals Maintain/ Achieve Baseline Neurological Status Improve Neurological Status Prevent Avoidable Neurological Decline Demonstrate Knowledge of Prevention/Tx of Neuro Disorders/ Complication Maintain/ Improve Strength/ROM Progression Toward Outcome/Goals Progressing Nutrition-Improve/Maintain Start: 06/01/19 16:47 Freq: DAILY@[id number] Status: Active Target: 06/09/19 Protocol: Activity Type Activity Date Activity User E-Sign Co-Sign Detail Recorded Client Recorded Date Recorded By Document 06/06/19 07:00 [id number] 06/06/19 07:34 [id number] 06/06/19 07:00 Outcome: Nutrition Current Nutrition Outcome/Goals Demonstrates Adequate Hydration Maintain/ Improve Nutritional Status Progression Toward Outcome/Goals Progressing Pain/Comfort- Improve/Maintain Start: 05/25/19 10:55 Freq: DAILY@699,[id number] Status: Active Target: 06/09/19 Protocol: Activity Type Activity Date Activity User E-Sign Co-Sign Detail Recorded Client Recorded Date Recorded By Document 06/06/19 07:00 [id number] [email or web address] 06/06/19 07:34 [id number] 06/06/19 07:00 PMRU Outcome: Pain/Comfort Current Pain/Comfort Outcome/Goals Demonstrates Knowledge and Use of Available Comfort Measures Achieves Acceptable Comfort/Pain Level as Determined by Patient/Condit Maintain Comfort Level Allowing Patient to Fully Participate in Rehab Progression Toward Outcome/Goals Progressing Outcome/Goals Met Comment scheduled pain medication given Rec Therapy- Improve/Maintain Start: 05/25/19 16:43 Freq: DAILY@[id number] Status: Active Target: 06/09/19 Protocol: Activity Type Activity Date Activity User E-Sign Co-Sign Detail Recorded Client Recorded Date Recorded By Document 06/05/19 16:46 [id number] [email or web address] 06/05/19 16:49 [id number] 06/05/19 16:46 PMRU Outcome: Recreation Therapy Current Rec Ther Outcome/Goals Complete Rec Therapy Assessment Meet with Patient Regularly for Support Encourage Leisure Involvement Progression Toward Outcome/Goals Progressing Lack of Progression Comment Met with pt for a leisure visit. Pt declined formal activities, as he was waiting for his to arrive. Pt appeared to be feeling much better today, talking and laughing with staff. Pt talked about his experience working in the [employer] . Outcome/Goals Met Complete Rec Therapy Assessment Safety- Improve/Maintain Start: 05/25/19 10:53 Freq: DAILY@0700,1900 Status: Active Target: 06/09/19 Protocol: Activity Type Activity Date Activity User E-Sign Co-Sign Detail Recorded Client Recorded Date Recorded By Document 06/06/19 07:00 [id number] [email or web address] 06/06/19 07:34 [id number] 06/06/19 07:00 PMRU Outcome: Safety Current Safety Outcome/Goals Remain Free of Injury or Harm Cooperates with Safety Measures for Least Restrictive Environment Prevent Falls/ Injury Progression Toward Outcome/Goals Progressing Skin- Improve/Maintain Start: 05/25/19 10:55 Freq: DAILY@0700,1900 Status: Active Target: 06/09/19 Protocol: Activity Type Activity Date Activity User E-Sign Co-Sign Detail Recorded Client Recorded Date Recorded By Document 06/06/19 07:00 [id number] [email or web address] 06/06/19 07:34 [id number] 06/06/19 07:00 PMRU Outcome: Skin Skin Risk Level High Risk Skin Orders Heels Off Bed Turn/Position q2hr While in Bed Current Skin Outcome/Goals Maintain/ Improve Skin Integrity Free from Pressure Injury Maintain/ Improve Wound Status Progression Toward Outcome/Goals Progressing - Interdisciplinary Staff Present Water Superintendent/Social Work Staff Present: Lupe Hodge LMSW Nursing Staff Present: Ines Aldridge, RN OT Staff Present: Rhiannon Carrillo PT Staff Present: Danish Dominguez DPT HAND ENGRAVER Staff Present: Rashad Orozco Medicine Note: Length of Stay: 3 days Anticipated Discharge Destination: Home Tentative Discharge Date: 06/09/19 Discharged to: home
[2019-06-06] MEDS: Scopolamine 1.5 mg* PATCH TRANSDERM SCH (18:44)
[2019-06-06] MEDS: Acetaminophen TAB* 325 MG PO PRN (18:45)
--- NOTE | 2019-06-06 20:04 | PN ---
Progress Note Date of Service: 06/06/19 Note: SWATI CATES was visited. Therapy notes read and reviewed. He was discussed in interdisciplinary team rounds. He is struggling but has made some gains with wheelchair and his is being trained in [place] transfers. Current Medications: Active Medications Generic Name Dose Route Start Last Admin Trade Name Freq PRN Reason Stop Dose Admin Acetaminophen 650 mg 05/25/19 12:13 06/06/19 18:45 Tylenol Tab* PO 650 mg Q6H PRN Administration MILD PAIN or TEMP > 100.4 Amlodipine Besylate 10 mg 05/26/19 09:00 06/06/19 08:38 Norvasc Tab* PO 10 mg DAILY KRYSTAL Administration Bisacodyl 10 mg 05/28/19 07:30 06/06/19 09:11 Dulcolax Supp* CO 10 mg 0730 KRYSTAL Administration Cephalexin HCl 500 mg 06/03/19 10:00 06/06/19 08:38 Keflex Cap* PO 06/06/19 21:01 500 mg BID KRYSTAL Administration Dexamethasone 4 mg 06/06/19 09:00 06/06/19 08:39 Decadron Tab* PO 06/07/19 23:00 4 mg DAILY KRYSTAL Administration Dexamethasone 2 mg 06/08/19 09:00 Decadron Tab* PO DAILY KRYSTAL Docusate Sodium 100 mg 05/25/19 21:00 06/06/19 08:39 Colace Cap* PO 100 mg BID KRYSTAL Administration Lorazepam 0.5 mg 05/25/19 14:00 06/02/19 06:22 Ativan Tab(*) PO 0.5 mg Q6H PRN Administration ANXIETY Magnesium Hydroxide 30 ml 05/25/19 12:13 05/28/19 09:30 Milk Of Magnesia Liq* PO 30 ml Q6H PRN Administration CONSTIPATION Morphine Sulfate 15 mg 06/02/19 08:00 06/06/19 16:24 Ms Contin(*) PO 15 mg 0000,0800,1600 KRYSTAL Administration Ondansetron HCl 4 mg 05/25/19 14:00 06/05/19 11:11 Zofran Odt Tab* PO 4 mg Q6H PRN Administration NAUSEA Pantoprazole Sodium 40 mg 05/26/19 09:00 06/06/19 08:38 Protonix Tab* PO 40 mg DAILY KRYSTAL Administration Polyethylene Glycol/Electrolytes 17 gm 05/26/19 09:00 06/06/19 08:39 Miralax (17 Gm Dose Perfecto) PO 17 gm DAILY KRYSTAL Administration Scopolamine 1 patch 05/31/19 18:00 06/06/19 18:44 Transderm-Scop 1.5 Mg Patch* TRANSDERM 1 patch Q72H KRYSTAL Administration Senna 2 tab 05/25/19 21:00 06/05/19 21:02 Senokot 8.6 Mg Tab* PO 2 tab BEDTIME KRYSTAL Administration Vital Signs: Vital Signs Temp Pulse Resp BP Pulse Ox 97.5 F 92 18 154/101 95 06/06/19 16:30 06/06/19 16:30 06/06/19 18:45 06/06/19 16:30 06/06/19 16:35 Exam: GENERAL: No acute distress. Alert and appropriate. LUNGS: Clear to auscultation bilaterally HEART: Regular rate and rhythm ABDOMEN: + bowel sounds, soft, non-tender and non-distended EXTREMITIES: BLE edema NEUROLOGIC: CN II-XII intact. Sensation impaired in both legs waist down. Motor 2-3/5 bilateral lower extremities and 5/5 BUE except 4+/5 right triceps. Sensation intact BUE. Assessment/Plan: 1. Metastatic Melanoma with T spine mets with incomplete SCI and paraparesis: PT /OT 2. 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 WBRT finished, new area of hemorrhage on CT scan 05/31/2019. No further XRT. Oncology follow-up. 3. Neurogenic bladder with Pansensitive Ecoli UTI: Sharma out and gets ICP Q shift. Had gross hematuria 05/31 that resolved. Keflex 500mg bid 06/23. Will need to discuss home sharma with or [place], though leaning toward catheter. 4. Neurogenic Bowel: suppository at 0730 5. Analgesia: MS Contin Q8 hours 6. Advance Directives: DNR, has MOL, met with palliative care, he and his were not ready for hospice. Oncology may revisit with them. 7. DVT Prophylaxis: TEDs. 8. Thrombocytopenia: stable. 9. Hyponatremia: stable. 10. Nausea: better with scopalomine patch 06/06/19 20:04
[2019-06-06] MEDS: Senna TAB 8.6 mg* TAB PO SCH (20:05)
[2019-06-07] MEDS: LORazepam TAB(*) 0.5 MG PO PRN (05:37)
[2019-06-07] MEDS: Dexamethasone TAB* 4 MG PO SCH (09:39)
[2019-06-07] MEDS: Morphine TAB Extended Release (*) 15 MG TAB.ER PO SCH ×3 (09:40→23:15)
[2019-06-07] MEDS: amLODIPine TAB* 5 MG PO SCH (09:40)
[2019-06-07] MEDS: Pantoprazole TAB * 40 MG TAB PO SCH (09:40)
[2019-06-07] MEDS: Docusate CAP* 100 MG PO SCH ×2 (09:45→20:27)
[2019-06-07] MEDS: Polyethylene Glycol 3350* 17 GM PACKET PO SCH (09:45)
--- NOTE | 2019-06-07 18:58 | PN ---
Progress Note Date of Service: 06/07/19 Note: SWATI CATES was visited. Therapy notes read and reviewed. He may have had some left arm weakness but it seems better now. Is supposed to go home June 08 but grandson has a fever of 104, so will need to watch Current Medications: Active Medications Generic Name Dose Route Start Last Admin Trade Name Freq PRN Reason Stop Dose Admin Acetaminophen 650 mg 05/25/19 12:13 06/06/19 18:45 Tylenol Tab* PO 650 mg Q6H PRN Administration MILD PAIN or TEMP > 100.4 Amlodipine Besylate 10 mg 05/26/19 09:00 06/07/19 09:40 Norvasc Tab* PO 10 mg DAILY KRYSTAL Administration Bisacodyl 10 mg 05/28/19 07:30 06/07/19 09:24 Dulcolax Supp* [place] 10 mg 0730 KRYSTAL Administration Dexamethasone 4 mg 06/06/19 09:00 06/07/19 09:39 Decadron Tab* PO 06/07/19 23:00 4 mg DAILY KRYSTAL Administration Dexamethasone 2 mg 06/08/19 09:00 Decadron Tab* PO DAILY KRYSTAL Docusate Sodium 100 mg 05/25/19 21:00 06/07/19 09:45 Colace Cap* PO Not Given BID KRYSTAL Lorazepam 0.5 mg 05/25/19 14:00 06/07/19 05:37 Ativan Tab(*) PO 0.5 mg Q6H PRN Administration ANXIETY Magnesium Hydroxide 30 ml 05/25/19 12:13 05/28/19 09:30 Milk Of Magnesia Liq* PO 30 ml Q6H PRN Administration CONSTIPATION Morphine Sulfate 15 mg 06/02/19 08:00 06/07/19 16:32 Ms Contin(*) PO 15 mg 0000,0800,1600 KRYSTAL Administration Ondansetron HCl 4 mg 05/25/19 14:00 06/05/19 11:11 Zofran Odt Tab* PO 4 mg Q6H PRN Administration NAUSEA Pantoprazole Sodium 40 mg 05/26/19 09:00 06/07/19 09:40 Protonix Tab* PO 40 mg DAILY KRYSTAL Administration Polyethylene Glycol/Electrolytes 17 gm 05/26/19 09:00 06/07/19 09:45 Miralax (17 Gm Dose Perfecto) PO Not Given DAILY KRYSTAL Scopolamine 1 patch 05/31/19 18:00 06/06/19 18:44 Transderm-Scop 1.5 Mg Patch* TRANSDERM 1 patch Q72H KRYSTAL Administration Senna 2 tab 05/25/19 21:00 06/06/19 20:05 Senokot 8.6 Mg Tab* PO 2 tab BEDTIME KRYSTAL Administration Vital Signs: Vital Signs Temp Pulse Resp BP Pulse Ox 97.5 F 89 18 148/88 95 06/07/19 15:50 06/07/19 15:50 06/07/19 16:32 06/07/19 15:50 06/07/19 15:50 Exam: GENERAL: No acute distress. Alert and appropriate. LUNGS: Clear to auscultation bilaterally HEART: Regular rate and rhythm ABDOMEN: + bowel sounds, soft, non-tender and non-distended EXTREMITIES: BLE edema NEUROLOGIC: CN II-XII intact. Sensation impaired in both legs waist down. Motor 2-3/5 bilateral lower extremities and 5/5 BUE except 4+/5 right triceps. Sensation intact BUE. Assessment/Plan: 1. Metastatic Melanoma with T spine mets with incomplete SCI and paraparesis: PT /OT 2. 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 WBRT finished, new area of hemorrhage on CT scan 05/31/2019. No further XRT. Oncology follow-up. 3. Neurogenic bladder with Pansensitive Ecoli UTI: Sharma out and gets ICP Q shift. Had gross hematuria 05/31 that resolved. Finished Keflex 500mg bid. Will need to discuss home sharma with or [place], though leaning toward catheter. 4. Neurogenic Bowel: suppository at 0730 5. Analgesia: MS Contin Q8 hours 6. Advance Directives: DNR, has MOLST, met with palliative care, he and his were not ready for hospice. Oncology may revisit with them. 7. DVT Prophylaxis: TEDs. 8. Thrombocytopenia: stable. 9. Hyponatremia: stable. 10. Nausea: better with scopalomine patch 06/07/19 18:58 06/07/19 18:59
[2019-06-07] MEDS: Senna TAB 8.6 mg* TAB PO SCH (20:27)
[2019-06-08] MEDS: Acetaminophen TAB* 325 MG PO PRN (05:55)
[2019-06-08] MEDS: Ondansetron ODT TAB* 4 MG PO PRN (08:11)
[2019-06-08] MEDS: Pantoprazole TAB * 40 MG TAB PO SCH (09:19)
[2019-06-08] MEDS: Dexamethasone TAB* 1 MG PO SCH (09:19)
[2019-06-08] MEDS: amLODIPine TAB* 5 MG PO SCH (09:20)
[2019-06-08] MEDS: Docusate CAP* 100 MG PO SCH ×2 (09:20→20:08)
[2019-06-08] MEDS: Polyethylene Glycol 3350* 17 GM PACKET PO SCH (09:20)
[2019-06-08] MEDS: Morphine TAB Extended Release (*) 15 MG TAB.ER PO SCH ×2 (09:20→16:18)
--- NOTE | 2019-06-08 11:43 | PN ---
Progress Note - Progress Note Date of Service: 06/08/19 SOAP: Subjective: [Ponce reports he is really tired and more nauseous this morning. Strength improving with PT. He's been working on transfers. Anxious to get home and start therapy. ] Objective: [ Vital Signs: Temp Pulse Resp BP Pulse Ox 97.4 F 79 18 129/86 97 06/08/19 05:19 06/08/19 05:19 06/08/19 09:20 06/08/19 05:19 06/08/19 05:19 Acetaminophen (Tylenol Tab*) 650 mg PO Q6H PRN PRN Reason: MILD PAIN or TEMP > 100.4 Last Admin: 06/08/19 05:55 Dose: 650 mg Amlodipine Besylate (Norvasc Tab*) 10 mg PO DAILY [facility] Last Admin: 06/08/19 09:20 Dose: 10 mg Bisacodyl (Dulcolax Supp*) 10 mg CO 0730 [facility] Last Admin: 06/08/19 08:00 Dose: Not Given Dexamethasone (Decadron Tab*) 2 mg PO DAILY [facility] Last Admin: 06/08/19 09:19 Dose: 2 mg Docusate Sodium (Colace Cap*) 100 mg PO BID [facility] Last Admin: 06/08/19 09:20 Dose: Not Given Lorazepam (Ativan Tab(*)) 0.5 mg PO Q6H PRN PRN Reason: ANXIETY Last Admin: 06/07/19 05:37 Dose: 0.5 mg Magnesium Hydroxide (Milk Of Magnesia Liq*) 30 ml PO Q6H PRN PRN Reason: CONSTIPATION Last Admin: 05/28/19 09:30 Dose: 30 ml Morphine Sulfate (Ms Contin(*)) 15 mg PO 0000,0800,1600 [facility] Last Admin: 06/08/19 09:20 Dose: 15 mg Ondansetron HCl (Zofran Odt Tab*) 4 mg PO Q6H PRN PRN Reason: NAUSEA Last Admin: 06/08/19 08:11 Dose: 4 mg Pantoprazole Sodium (Protonix Tab*) 40 mg PO DAILY [facility] Last Admin: 06/08/19 09:19 Dose: 40 mg Polyethylene Glycol/Electrolytes (Miralax (17 Gm Dose Perfecto)) 17 gm PO DAILY [facility] Last Admin: 06/08/19 09:20 Dose: Not Given Scopolamine (Transderm-Scop 1.5 Mg Patch*) 1 patch TRANSDERM Q72H [facility] Last Admin: 06/06/19 18:44 Dose: 1 patch Senna (Senokot 8.6 Mg Tab*) 2 tab PO BEDTIME [facility] Last Admin: 06/07/19 20:27 Dose: Not Given Exam: Gen: fatigued appearing, but easily awoken from sleep pt requested to defer remainder of exam as he would like a nap] Assessment: [54yo male with metastatic melanoma, s/p palliative RT to lumbar spine, s/p WBRT. He is currently participating in rehab services in [facility] and nearing discharge. He is quite lethargic this morning, which could be due to some adrenal insufficiency from rapid steroid taper. Plan: [1. Metastatic melanoma - s/p palliative lumbar RT and WBRT for hemorrhagic brain mets - cont to taper dex, 2mg daily starting today, will drop to 1mg next week following dc - plan to start ipilumumab/nivolumab next week following discharge - this has been discussed and coordinated with his 2. Brain mets - s/p WBRT, cont dex taper - monitor for worsening or recurrent neuro symptoms with taper 3. Weakness - may be due to some adrenal insufficiency due to steroid taper v recurrent UTI - if no evidence of recurrent infection and he has persistent weakness can increase dex back to 4mg and alternate with 2mg Dispo: dc plan per PMRU team. Plan to start systemic therapy with oncology next week. Reviewed plan with his by phone this morning.
--- NOTE | 2019-06-08 18:46 | PN ---
Progress Note Date of Service: 06/08/19 Note: SWATI CATES was visited. Therapy notes read and reviewed. He is ready for discharge tomorrow. I spoke with his regarding febrile grandchild. Child has not been in house since Wednesday and she has wiped down all sufaces. They are unable to do intermittent catheterization and will need sharma. Current Medications: Active Medications Generic Name Dose Route Start Last Admin Trade Name Freq PRN Reason Stop Dose Admin Acetaminophen 650 mg 05/25/19 12:13 06/08/19 05:55 Tylenol Tab* PO 650 mg Q6H PRN Administration MILD PAIN or TEMP > 100.4 Amlodipine Besylate 10 mg 05/26/19 09:00 06/08/19 09:20 Norvasc Tab* PO 10 mg DAILY KRYSTAL Administration Bisacodyl 10 mg 05/28/19 07:30 06/08/19 08:00 Dulcolax Supp* RI Not Given 0730 KRYSTAL Dexamethasone 2 mg 06/08/19 09:00 06/08/19 09:19 Decadron Tab* PO 2 mg DAILY KRYSTAL Administration Docusate Sodium 100 mg 05/25/19 21:00 06/08/19 09:20 Colace Cap* PO Not Given BID KRYSTAL Lorazepam 0.5 mg 05/25/19 14:00 06/07/19 05:37 Ativan Tab(*) PO 0.5 mg Q6H PRN Administration ANXIETY Magnesium Hydroxide 30 ml 05/25/19 12:13 05/28/19 09:30 Milk Of Magnesia Liq* PO 30 ml Q6H PRN Administration CONSTIPATION Morphine Sulfate 15 mg 06/02/19 08:00 06/08/19 16:18 Ms Contin(*) PO 15 mg 0000,0800,1600 KRYSTAL Administration Ondansetron HCl 4 mg 05/25/19 14:00 06/08/19 08:11 Zofran Odt Tab* PO 4 mg Q6H PRN Administration NAUSEA Pantoprazole Sodium 40 mg 05/26/19 09:00 06/08/19 09:19 Protonix Tab* PO 40 mg DAILY KRYSTAL Administration Polyethylene Glycol/Electrolytes 17 gm 05/26/19 09:00 06/08/19 09:20 Miralax (17 Gm Dose Perfecto) PO Not Given DAILY KRYSTAL Scopolamine 1 patch 05/31/19 18:00 06/06/19 18:44 Transderm-Scop 1.5 Mg Patch* TRANSDERM 1 patch Q72H KRYSTAL Administration Senna 2 tab 05/25/19 21:00 06/07/19 20:27 Senokot 8.6 Mg Tab* PO Not Given BEDTIME KRYSTAL Vital Signs: Vital Signs Temp Pulse Resp BP Pulse Ox 98.3 F 82 16 118/66 95 06/08/19 16:36 06/08/19 16:36 06/08/19 16:36 06/08/19 16:36 06/08/19 16:39 Exam: GENERAL: No acute distress. Alert and appropriate. LUNGS: Clear to auscultation bilaterally HEART: Regular rate and rhythm ABDOMEN: + bowel sounds, soft, non-tender and non-distended EXTREMITIES: BLE edema NEUROLOGIC: CN II-XII intact. Sensation impaired in both legs waist down. Motor 2-3/5 bilateral lower extremities and 5/5 BUE except 4+/5 right triceps. Sensation intact BUE. Assessment/Plan: 1. Metastatic Melanoma with T spine mets with incomplete SCI and incomplete paraplegia: PT/OT 2. 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 WBRT finished. No further XRT. Oncology follow-up. Tapering Decadron 3. Neurogenic bladder: Will go home with Sharma . Finished Keflex 500mg bid. 4. Neurogenic Bowel: suppository at 0730 5. Analgesia: MS Contin Q8 hours 6. Advance Directives: DNR, has MOLST, met with palliative care, he and his were not ready for hospice. Oncology may revisit with them. 7. DVT Prophylaxis: TEDs. 8. Thrombocytopenia: stable. 9. Hyponatremia: stable. 10. Nausea: better with scopalomine patch, but can still be bad at times 06/08/19 18:46
[2019-06-08] MEDS: Senna TAB 8.6 mg* TAB PO SCH (20:08)
[2019-06-09] MEDS: Morphine TAB Extended Release (*) 15 MG TAB.ER PO SCH ×3 (00:09→15:44)
[2019-06-09] MEDS: LORazepam TAB(*) 0.5 MG PO PRN (04:27)
[2019-06-09] MEDS: Acetaminophen TAB* 325 MG PO PRN (05:21)
[2019-06-09 05:22] LABS: Albumin 3.1 g/dL (3.2-5.2); CO2 Carbon Dioxide 21 mmol/L (22-32); Chloride 102 mmol/L (101-111); Sodium 132 mmol/L (135-145)
[2019-06-09 05:28] LABS: ALT 45 U/L (7-52); Albumin/Globulin Ratio 1.8 (1-3); Alkaline Phosphatase 53 U/L (34-104); Anion Gap 9 mmol/L (2-11); BUN/Creatinine Ratio 23.2 (8-20); Blood Urea Nitrogen 23 mg/dL (6-24); EGFR African American 94.6 (>60); EGFR Non-African American 78.2 (>60); Globulin 1.7 g/dL (2-4); Glucose 114 mg/dL (70-100); Total Protein 4.8 g/dL (6.4-8.9)
[2019-06-09 05:30] LABS: ABS Lymphocytes 0.3 10^3/ul (1.0-4.8); ABS Monocytes 0.2 10^3/ul (0-0.8); ABS Neutrophils 3.2 10^3/ul (1.5-7.7); Eosinophil % 1.1 %; Hematocrit 40 % (42-52); Hemoglobin 13.7 g/dL (14.0-18.0); Lymphocyte % 8.9 %; Mean Corpuscular HGB Conc 34 g/dL (31-36); Mean Corpuscular Hemoglobin 35 pg (27-31); Mean Corpuscular Volume 102 fL (80-94); Mean Platelet Volume 7.4 fL (7.4-10.4); Platelet Count 59 10^3/uL (150-450); Red Blood Count 3.93 10^6 /uL (4.18-5.48); Red Cell Distribution Width 14 % (10-15); White Blood Count 3.9 10^3/uL (3.5-10.8)
[2019-06-09 06:56] LABS: Potassium Redraw 4.1 mmol/L (3.5-5.0)
[2019-06-09] MEDS: Ondansetron ODT TAB* 4 MG PO PRN (07:56)
[2019-06-09] MEDS: Docusate CAP* 100 MG PO SCH ×2 (10:43→19:44)
[2019-06-09] MEDS: Polyethylene Glycol 3350* 17 GM PACKET PO SCH (10:44)
[2019-06-09] MEDS: Dexamethasone TAB* 1 MG PO SCH (10:48)
[2019-06-09] MEDS: Pantoprazole TAB * 40 MG TAB PO SCH (10:48)
[2019-06-09] MEDS: amLODIPine TAB* 5 MG PO SCH (10:51)
[2019-06-09] MEDS: Scopolamine 1.5 mg* PATCH TRANSDERM SCH (17:07)
--- NOTE | 2019-06-09 19:01 | PN ---
Progress Note Date of Service: 06/09/19 Note: SWATI CATES was visited. Therapy notes read and reviewed. He was not able to leave today but plan is to leave tomorrow. Otherwise doing ok Current Medications: Active Medications Generic Name Dose Route Start Last Admin Trade Name Freq PRN Reason Stop Dose Admin Acetaminophen 650 mg 05/25/19 12:13 06/09/19 05:21 Tylenol Tab* PO 650 mg Q6H PRN Administration MILD PAIN or TEMP > 100.4 Amlodipine Besylate 10 mg 05/26/19 09:00 06/09/19 10:51 Norvasc Tab* PO 10 mg DAILY KRYSTAL Administration Bisacodyl 10 mg 05/28/19 07:30 06/09/19 07:56 Dulcolax Supp* MD 10 mg 0730 KRYSTAL Administration Dexamethasone 2 mg 06/08/19 09:00 06/09/19 10:48 Decadron Tab* PO 2 mg DAILY KRYSTAL Administration Docusate Sodium 100 mg 05/25/19 21:00 06/09/19 10:43 Colace Cap* PO Not Given BID KRYSTAL Lorazepam 0.5 mg 05/25/19 14:00 06/09/19 04:27 Ativan Tab(*) PO 0.5 mg Q6H PRN Administration ANXIETY Magnesium Hydroxide 30 ml 05/25/19 12:13 05/28/19 09:30 Milk Of Magnesia Liq* PO 30 ml Q6H PRN Administration CONSTIPATION Morphine Sulfate 15 mg 06/02/19 08:00 06/09/19 15:44 Ms Contin(*) PO 15 mg 0000,0800,1600 KRYSTAL Administration Ondansetron HCl 4 mg 05/25/19 14:00 06/09/19 07:56 Zofran Odt Tab* PO 4 mg Q6H PRN Administration NAUSEA Pantoprazole Sodium 40 mg 05/26/19 09:00 06/09/19 10:48 Protonix Tab* PO 40 mg DAILY KRYSTAL Administration Polyethylene Glycol/Electrolytes 17 gm 05/26/19 09:00 06/09/19 10:44 Miralax (17 Gm Dose Perfecto) PO Not Given DAILY KRYSTAL Scopolamine 1 patch 05/31/19 18:00 06/09/19 17:07 Transderm-Scop 1.5 Mg Patch* TRANSDERM 1 patch Q72H KRYSTAL Administration Senna 2 tab 05/25/19 21:00 06/08/19 20:08 Senokot 8.6 Mg Tab* PO Not Given BEDTIME KRYSTAL Vital Signs: Vital Signs Temp Pulse Resp BP Pulse Ox 98.1 F 108 18 102/83 95 06/09/19 14:28 06/09/19 14:28 06/09/19 18:58 06/09/19 14:28 06/09/19 16:55 Lab Results: Laboratory Results - last 24 hr 06/09/19 06/09/19 06/09/19 04:40 04:40 05:36 WBC 3.9 RBC 3.93 L Hgb 13.7 L Hct 40 L MCV 102 H MCH 35 H MCHC 34 RDW 14 Plt Count 59 L MPV 7.4 Neut % (Auto) 84.1 Lymph % (Auto) 8.9 [place] % (Auto) 5.7 Eos % (Auto) 1.1 Baso % (Auto) 0.2 Absolute Neuts (auto) 3.2 Absolute Lymphs (auto) 0.3 L Absolute Monos (auto) 0.2 Absolute Eos (auto) 0.0 Absolute Basos (auto) 0.0 Absolute Nucleated RBC 0.0 Immature Gran % 1.0 Neutrophils % 87.0 Lymphocytes % 8.0 Monocytes % 3.0 Eosinophils % 1.0 Myelocytes % 1.0 Nucleated RBC % 1.0 Nucleated RBCs/100 WBC 1.0 H Normal RBC Morphology Normal Sodium 132 L Potassium TNP TNP Chloride 102 Carbon Dioxide 21 L Anion Gap 9 BUN 23 Creatinine 0.99 Est GFR ( Amer) 94.6 Est GFR (Non-Af Amer) 78.2 BUN/Creatinine Ratio 23.2 H Glucose 114 H Calcium 8.0 L Total Bilirubin 0.60 AST TNP TNP ALT 45 Alkaline Phosphatase 53 Total Protein 4.8 L Albumin 3.1 L Globulin 1.7 L Albumin/Globulin Ratio 1.8 06/09/19 06:33 WBC RBC Hgb Hct MCV MCH MCHC RDW Plt Count MPV Neut % (Auto) Lymph % (Auto) [place] % (Auto) Eos % (Auto) Baso % (Auto) Absolute Neuts (auto) Absolute Lymphs (auto) Absolute Monos (auto) Absolute Eos (auto) Absolute Basos (auto) Absolute Nucleated RBC Immature Gran % Neutrophils % Lymphocytes % Monocytes % Eosinophils % Myelocytes % Nucleated RBC % Nucleated RBCs/100 WBC Normal RBC Morphology Sodium Potassium 4.1 Chloride Carbon Dioxide Anion Gap BUN Creatinine Est GFR ( Amer) Est GFR (Non-Af Amer) BUN/Creatinine Ratio Glucose Calcium Total Bilirubin AST 20 ALT Alkaline Phosphatase Total Protein Albumin Globulin Albumin/Globulin Ratio Exam: GENERAL: No acute distress. Alert and appropriate. LUNGS: Clear to auscultation bilaterally HEART: Regular rate and rhythm ABDOMEN: + bowel sounds, soft, non-tender and non-distended EXTREMITIES: BLE edema : Connor in place NEUROLOGIC: CN II-XII intact. Sensation impaired in both legs waist down. Motor 2-3/5 bilateral lower extremities and 5/5 BUE except 4+/5 right triceps. Sensation intact BUE. Assessment/Plan: 1. Metastatic Melanoma with T spine mets with incomplete SCI and incomplete paraplegia: PT/OT 2. 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 WBRT finished. No further XRT. Oncology follow-up. Tapering Decadron 3. Neurogenic bladder: Will go home with Connor . Finished Keflex 500mg bid. 4. Neurogenic Bowel: suppository at 0730 5. Analgesia: MS Contin Q8 hours 6. Advance Directives: DNR, has MOLST, met with palliative care, he and his were not ready for hospice. Oncology may revisit with them. 7. DVT Prophylaxis: TEDs. 8. Thrombocytopenia: stable. 9. Hyponatremia: stable. 10. Nausea: better with scopalomine patch, but can still be bad at times 06/09/19 19:02
[2019-06-09] MEDS: Senna TAB 8.6 mg* TAB PO SCH (19:44)
[2019-06-10] MEDS: Morphine TAB Extended Release (*) 15 MG TAB.ER PO SCH ×2 (00:05→08:31)
[2019-06-10 06:13] VITALS: BP 136/78
[2019-06-10] MEDS: amLODIPine TAB* 5 MG PO SCH (08:30)
[2019-06-10] MEDS: Polyethylene Glycol 3350* 17 GM PACKET PO SCH (08:31)
[2019-06-10] MEDS: Pantoprazole TAB * 40 MG TAB PO SCH (08:31)
[2019-06-10] MEDS: Dexamethasone TAB* 1 MG PO SCH (08:31)
[2019-06-10] MEDS: Docusate CAP* 100 MG PO SCH (08:32)
--- NOTE | 2019-06-10 14:23 | DS ---
CC: Dr. Greyson Pompa, Kathy Owens; NADEGE Ulrich, CLAUDIO * DISCHARGE SUMMARY: DATE OF ADMISSION: 05/25/19 DATE OF DISCHARGE: 06/10/19 DISCHARGE DIAGNOSES: 1. 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 2. Neurogenic bladder. 3. Neurogenic bowel. 4. Metastatic melanoma. HISTORY OF PRESENT ILLNESS: For a complete history of the events that preceded his rehab stay, please see the history and physical dictated by me on 05/25/19. Briefly, the patient was diagnosed with melanoma 8 years ago and was treated with a wide local excision and lymph node dissection. At the beginning of this year, the patient developed low back pain extending to his groin, which he initially thought was due to a weightlifting routine. He presented to the [facility] on 05/02/19 and then was transferred to [facility] on 05/03/19 for pain control and had MRIs of his cervical, thoracic, and lumbar spine, which showed leptomeningeal disease consistent with metastases. He later had a biopsy confirming metastatic melanoma. He was treated with oral morphine and discharged home on 05/08/19, returned for routine followup on 05/15 and had a CAT scan of his head to follow up on known brain metastases but was found to have an acute hemorrhagic lesion in the left frontoparietal lobe. The patient had difficulties with vision and cognitive therapy as a result of his brain metastases and also was unable to transfer due to his incomplete spinal cord injury and bilateral leg weakness. He was admitted to the rehab unit on 05/25/19. While on the rehab unit, he worked with Physical Therapy and Occupational Therapy as well as Speech Therapy. A bowel program was initiated where he would get a suppository every morning. He completed his course of whole brain radiation therapy while on the rehab unit. He was noted to have a wound over his left buttock with an open area. It was felt to be a stage 2 pressure injury and was treated with barrier cream and more frequent repositioning. The patient had an episode of hematuria, but he had a known lesion over his right kidney. Urinalysis was sent, which was consistent with a urinary tract infection. It grew out pansensitive E. coli and he received treatment with oral antibiotics for this. He received Keflex 500 mg twice daily. The patient was unable to learn self-catheterization techniques and it was felt that he would be better off going home with a Connor catheter by both he and his and so a Connor catheter was reinserted and he was discharged home with a Connor catheter. The patient was tapered down off his Decadron. He was discharged home with 2 mg daily of Decadron. [facility]. The patient was seen by both Physical and Occupational Therapy and made good gains with both disciplines. With physical therapy at the time of admission, the patient was dependent for transfers, unable to ambulate, able to propel a wheelchair 150 feet. By the time of discharge, the patient remained dependent for transfers. His was instructed on how to transfer using a Beto lift. With occupational therapy at the time of admission, the patient had a Connor catheter for managing his bladder , he left with a Connor catheter. He was set up for upper body dressing, mod assist for lower body dressing, was dependent for toileting, and dependent for toilet transfers. At the time of admission, he remained dependent for toileting and toilet transfers. His was instructed on how to insert the suppository. The patient was discharged home with his on 06/10/19 after a family training session. DISCHARGE DIET: Soft by the patient's request. DISCHARGE MEDICATIONS: Included: 1. Norvasc 10 mg daily. 2. Dulcolax suppository 1 per rectum daily. 3. Decadron 2 mg daily. 4. Ativan 0.5 mg every 6 hours as needed. 5. MS Contin 15 mg every 8 hours. 6. Zofran 4 mg orally every 6 hours as needed. 7. Protonix 40 mg daily. 8. Scopolamine patch 1.5 mg behind his right ear, changing every 3 days. 9. Colace 100 mg twice daily. SERVICES AFTER DISCHARGE: Through [facility]. He will have home nursing, home physical therapy, home health aide, and a social media marketing specialist. FOLLOWUP: Follow up with Joseph Oakes from [facility] as well as with his primary care doctor Dr. Greyson Pompa. DISPOSITION: Home. CONDITION AT DISCHARGE: Fair. TIME SPENT: Time for this discharge was approximately 50 minutes, greater than half of that was spent with the patient and his explaining post rehabilitation medications, therapies, and services. [id number]/[facility] #: [id number] [place]
== END 2019-06-10 11:50 | disposition home health service (06) | DRG 945 ==
LOC: PMRU 10:46
PROVIDERS: ADMIT Physical Medicine & Rehabilitation; ATTEND Physical Medicine & Rehabilitation
PROC: F07Z5ZZ Bed Mobility Treatment (ICD-10-PCS; principal; 2019-05-25)
PROC: F07Z9ZZ Gait Training/Functional Ambulation Treatment (ICD-10-PCS; 2019-05-25)
PROC: F07Z8ZZ Transfer Training Treatment (ICD-10-PCS; 2019-05-25)
PROC: F07Z4ZZ Wheelchair Mobility Treatment (ICD-10-PCS; 2019-05-25)
PROC: F08Z0ZZ Bathing/Showering Techniques Treatment (ICD-10-PCS; 2019-05-25)
PROC: F08Z1ZZ Dressing Techniques Treatment (ICD-10-PCS; 2019-05-25)
PROC: F08Z3ZZ Feeding/Eating Treatment (ICD-10-PCS; 2019-05-25)
PROC: F08Z2ZZ Grooming/Personal Hygiene Treatment (ICD-10-PCS; 2019-05-25)
PROC: F06Z6ZZ Communicative/Cognitive Integration Skills Treatment (ICD-10-PCS; 2019-05-25)
PROC: F06ZDZZ Swallowing Dysfunction Treatment (ICD-10-PCS; 2019-05-25)
DX: S34.129 Incomplete lesion of unspecified level of lumbar spinal cord (principal); I61.1 Nontraumatic intracerebral hemorrhage in hemisphere, cortical; C79.51 Secondary malignant neoplasm of bone; E87.1 Hypo-osmolality and hyponatremia; C79.32 Secondary malignant neoplasm of cerebral meninges; G83.4 Cauda equina syndrome; N39.0 Urinary tract infection, site not specified; K59.2 Neurogenic bowel, not elsewhere classified; E27.49 Other adrenocortical insufficiency; L89.322 Pressure ulcer of left buttock, stage 2; D69.6 Thrombocytopenia, unspecified; X58.XXXD Exposure to other specified factors, subsequent encounter; H53.9 Unspecified visual disturbance; Z66 Do not resuscitate; R41.89 Other symptoms and signs involving cognitive functions and awareness; N28.9 Disorder of kidney and ureter, unspecified; B96.20 Unspecified Escherichia coli [E. coli] as the cause of diseases classified elsewhere; R31.9 Hematuria, unspecified; R11.0 Nausea; I10 Essential (primary) hypertension; Z79.891 Long term (current) use of opiate analgesic; Z79.899 Other long term (current) drug therapy; Z83.3 Family history of diabetes mellitus; Z82.5 Family history of asthma and other chronic lower respiratory diseases; Z87.891 Personal history of nicotine dependence; K59.00 Constipation, unspecified
CPT/HCPCS: 36415; 70450; 80048; 80053; 81003; 81015; 84134; 85025; 87077; 87086; 87186; 99232; 99233; 99239; A9270-GY; J8540